=== PATIENT | female | born 1935 | race Caucasian/White ===

== ENCOUNTER 2020-09-10 15:45 | Inpatient (IN) | payer MEDICARE, SELFPAY ==
[2020-09-10 15:30] VITALS: BP 132/76; PULSE 68; RESP 18; TEMP 36.4; O2SAT 99
[2020-09-10 15:35] VITALS: O2SAT 97
--- NOTE | 2020-09-10 15:36 | CON.PCM_ITS ---
Problem List (1) Coronary artery disease Status: Chronic Qualifiers: Coronary Disease-Associated Artery/Lesion type: [place] artery [place] vs. transplanted heart: [place] heart Associated angina: without angina Qualified Code(s): I25.10 - Atherosclerotic heart disease of [place] coronary artery without angina pectoris (2) Morbid obesity due to excess calories Status: Chronic (3) Renal insufficiency Status: Chronic (4) COVID-19 Status: Acute (5) Systolic CHF, acute on chronic Status: Chronic (6) Acute respiratory failure with hypoxia Status: Acute Reason for Consult Date of Consultation: 09/10/20 Reason for Consultation: COVID-19 History of Present Illness: The patient is an 85 year old F, with past medical history listed below, who presented to [facility] as a transfer from [place] secondary to COVID-19 infection. Patient reportedly had complained of a 2-day history of cough, generalized weakness, myalgias, nausea and poor appetite that progressed. Patient reportedly had guests in their home that had tested positive for COVID- 19. On presentation patient reportedly was hypertensive at 193/92 and tachypneic at 30 breaths/min. Patient reportedly had a normal oxygen saturation at that time. Creatinine was noted to be 1.19 with a glucose of 147. Troponin was slightly elevated. Patient was found to be positive for COVID-19 and chest x-ray reportedly shows a left lower lobe pneumonia. Patient was admitted to the floor on broad-spectrum antibiotics, but overnight patient developed desaturation, respiratory rate into the 40s and hypoxia into the 70s. Patient was given IV Lasix and placed on BiPAP therapy. There was some concern patient would require Remdesivir, so the patient was reportedly transferred to [facility] for evaluation. Outside records were reviewed. There was approximately 75 pages. Pertinent information includes a white blood cell count of 8.7 with hemoglobin of 13.7. Liver function was unremarkable. Lactate was 1.8. ABG showed a metabolic acidosis with respiratory compensation and an increased AA gradient. Chest x-ray reportedly shows a left lower lobe infiltrate. Patient had a elevated BNP greater than 8000. On arrival to the intensive care unit, patient was noted to be afebrile and hemodynamically stable on 4 L nasal cannula oxygen. Patient reports that she feels significantly improved compared to previous. Patient denies any history of respiratory complaints. Patient has never been told she has asthma or COPD. Patient denies any smoking history. Patient does have an extensive cardiovascular history with a history of CAD status post CABG, stents and reported CHF. Patient also has a history of stroke, but denies any baseline deficits. Patient is a relatively poor historian and is unable to provide any medication lists. Patient does report she takes herbals, but is unaware of her exact regimen. Patient is a poor historian, but otherwise review of systems negative from a constitutional, HEENT, respiratory, cardiovascular, GI, genitourinary, musculoskeletal, skin, neurologic, psychiatric and hematologic system unless stated above. Past Medical History Past Medical History (Chronic Problems): Chronic Problems Coronary artery disease (Chronic) Morbid obesity due to excess calories (Chronic) Renal insufficiency (Chronic) Systolic CHF, acute on chronic (Chronic) Review of Systems Eyes: Reports: - - Wears glasses. No change in vision recently. HEENT: Reports: Hard of Hearing, - - Denies loss of taste or smell Unable to obtain accurate/complete ROS d/t: Poor historian. Objective: See HPI for outside review. No echocardiogram is available for review. - Physical Exam Vitals/I&O's: Vital Signs Pulse Ox 97 09/10/20 15:35 Oxygen Flow Rate (L/min) 2 Oxygen Delivery Method Nasal Cannula General: Alert, Oriented x3, Cooperative, - - Mild conversational dyspnea. Morbidly obese. HEENT: Atraumatic, PERRLA, EOMI, Normocephalic, - - Glasses in place. Oral: Moist Mucosa, No Gingival or Mucosal Lesions/ Ulcerations, - - Edentulous Neck: Supple, No JVD, No Nodes, Trachea Midline, - - Crowded posterior pharynx Lungs: No rhonchi, No wheeze, Diminished, Rales - Left base posteriorly, - - Symmetric expansion. Cardiovascular: Regular rate, Regular Rhythm, Normal S1, Normal S2, Murmur - Grade 2 out of 6 systolic ejection murmur at the right sternal border, No rub noted, No Gallop Abdomen: Bowel Sounds Present, Soft, Non Tender, Non-Distended, Obese Extremities: No clubbing, No cyanosis, Edema - Trace, Tenderness - Palpation over the tibia bilaterally Skin: No rashes, No breakdown Musculoskeletal: No Tenderness to Palpation of Joints or Extremities Lymphatic: No Cervical, Supraclavicular, or Inguinal Adenopathy Neurological: Cranial nerves II-XII grossly intact, Neuro grossly intact, Motor Exam 5/5 strength throughout Psych/Mental Status: Alert and oriented to time, place, person, mood and affect Assessment/Plan RECOMMENDATIONS: 1. Decadron, Remdesivir, convalescent serum per infectious disease 2. Okay to continue with nasal cannula during the day, BiPAP with sleep 3. Obtain echocardiogram and chest x-ray, consider BNP 4. Consider initiation of anticoagulation 5. Consider obtaining CRP, pro calcitonin 6. DNR Comfort Care arrest without intubation IMPRESSIONS: 1. Acute hypoxic respiratory failure secondary to CHF and COVID-19 Unclear etiology of acute worsening. Patient did have significant hypertension on presentation with an elevated BNP suggestive of hypertensive emergency. Patient also has tested positive for COVID-19. Patient is to be seen by infectious disease. We will continue to monitor respiratory status. Patient appears to be tolerating nasal cannula at this time. However, with body habitus and comorbid conditions, high clinical suspicion that BiPAP will be required overnight. Recommend obtaining echocardiogram for quantification clarification of cardiac function. Could consider a repeat BNP as patient reportedly has received diuretic therapy. Likely not necessary to obtain a CT of the chest, but chest x-ray may help quantify amount of irritation. If patient has pleural effusions, thoracentesis could be a consideration if oxygenation continues to worsen. 2. Acute on chronic reported systolic CHF/CAD status post CABG Baseline cardiac function is not known at this time. This does complicate respiratory status. Patient does not appear to have ST elevation on EKGs provided by outside institution. Telemetry looks like patient is in normal sinus rhythm. Recommend obtaining echocardiogram to quantify cardiac function. Patient may benefit from diuretic therapy. Okay to continue with baseline medications for now. 3. Morbid obesity/hypertension/hyperlipidemia/chronic kidney disease stage III Complicates care, management, recovery and prognosis. Likely okay to continue with baseline medications for now. We will have to watch liver function given antiretroviral. Inpatient E&M: 52525 Init Hosp L3
[2020-09-10 15:41] VITALS: PULSE 67; BMI 41.8; BMI 41.9
--- NOTE | 2020-09-10 15:51 | HP.PCM_ITS ---
Problem List (1) Coronary artery disease Status: Chronic Qualifiers: Coronary Disease-Associated Artery/Lesion type: [place] artery [place] vs. transplanted heart: [place] heart Associated angina: without angina Qualified Code(s): I25.10 - Atherosclerotic heart disease of [place] coronary artery without angina pectoris (2) Renal insufficiency Status: Chronic (3) COVID-19 Status: Acute (4) Systolic CHF, acute on chronic Status: Chronic (5) Acute respiratory failure with hypoxia Status: Acute History of Present Illness Date of Admission: 09/10/20 Chief Complaint: Weakness, cough. The patient is a 85 year old F with past medical history as mentioned above was directly admitted from outside facility for COVID-19 pneumonia. Reportedly, patient has been complaining of generalized weakness and fatigue over the last 3 to 4 days which is started after she had guests who were tested positive for COVID-19. She described her symptoms as being very weak, tired, associated with nausea and poor appetite and in the last couple of days, she has been having increasing shortness of breath with dry cough. She denied fever or chills. She has a history of CAD status post CABG and stents and this has been stable on medical treatment. She history of chronic congestive heart failure probably systolic and not sure if she has been on diuretics or not. She history of stroke in the past without significant residual deficit. At the other facility, patient was hypertensive and was hypoxic, was started on BiPAP. Her routine blood work was remarkable for BUN of 25 and creatinine 4.51, no leukocytosis. Lactic acid was normal. LFT was unremarkable. ABG revealed pH of 7.34, PCO2 of 25 and PO2 of 62. Her EKG revealed sinus tachycardia and PVCs, no acute clinical changes. Troponin was borderline elevated at 0.048 and 0.651. Her BNP was high elevated 8756. Chest x-ray revealed left lower lobe infiltrate and bilateral pulmonary vascular congestion. COVID-19 PCR came back positive. At this time after admission to the Covid floor, patient is afebrile, not tachycardic, blood pressure stable, pulse ox is maintained on 2 L of oxygen. She was given IV Lasix and broad-spectrum antibiotic at the other facility. She is being admitted for COVID-19 pneumonia and acute on chronic systolic CHF complicated by acute hypoxic respiratory failure. 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 Denies: Chills, Fever Eyes: Denies: Blurred vision, Double vision, Drainage, Redness HEENT: Denies: Difficulty Hearing, Ear Pain, Eye Pain, Nasal Congestion, Sore Throat Cardiovascular: Denies: Chest Pain, Chest Pressure, Heaviness, Light Headedness, Palpitations, Paroxysmal Noc. Dyspnea, Syncope Respiratory: Reports: Cough, Shortness of Breath. Denies: Pleuritic Pain, Sputum production, Wheezing Gastrointestinal: Denies: Abdominal Pain, Constipation, Diarrhea, Nausea, Vomiting Genitourinary: Denies: Dysuria, Frequency, Hematuria Musculoskeletal: Denies: Arm Pain, Back Pain, Foot Pain Skin: Denies: Dryness, Rash Neurological: Denies: Balance problems, Double vision, Change in Speech, Slurred speech, Confusion, Focal weakness, Incoordination, Numbness Psychiatric: Denies: Anxiety, Depression Endocrine: Denies: Change in Body Habitus, Polydipsia, Polyuria VTE Information - Inpt Only VTE Present on Admission: No VTE Mechan Device Prophylaxis: SCD's VTE Pharm Prophylaxis ordered?: Yes Patient Problems: Active and Suspected Problems COVID-19 (Acute) Acute respiratory failure with hypoxia (Acute) - Physical Exam Vitals/I&O's: Vital Signs Pulse Ox 97 09/10/20 15:35 Oxygen Flow Rate (L/min) 2 Oxygen Delivery Method Nasal Cannula General: Alert, Oriented x3, Cooperative, - - Minimally short of breath. HEENT: Atraumatic, PERRLA, EOMI, Normocephalic Oral: Moist Mucosa, No Gingival or Mucosal Lesions/ Ulcerations Neck: Supple, No JVD, Negative Carotid Bruits, Trachea Midline, Thyroid Normal Size and Texture Lungs: No rhonchi, No wheeze, No rales, Diminished, Short of Breath, - - Decreased breath sounds bilateral, basilar faint crackles. Cardiovascular: Regular rate, Regular Rhythm, Normal S1, Normal S2, PMI Normal, Murmur Abdomen: Bowel Sounds Present, Soft, Non Tender, Non-Distended, No Hepato- splenomegaly, Obese Extremities: No clubbing, No cyanosis, Edema - Trace edema. Skin: No rashes, No breakdown Lymphatic: No Cervical, Supraclavicular, or Inguinal Adenopathy Neurological: Cranial nerves II-XII grossly intact, Motor Exam 5/5 strength throughout Psych/Mental Status: Normal Affect, Appropriate, Alert and oriented to time, place, person, mood and affect CBC: WBC 8.3, hemoglobin 12.9, platelet count 1 65,000. BMP: Glucose 161, sodium 133, potassium 3.9, carbon dioxide 21, BUN 25, creatinine 1.51. ABG: pH 7.43, PCO2 25, PO2 62. LFT was unremarkable. Lactic acid was 1.8. Troponin: 0.048, 0.651. BNP 8756. Chest x-ray: Left lower lobe 58, bilateral pulmonary vascular congestion. EKG: Sinus tachycardia, PVCs, no acute sleep changes. Current Medications Sodium Chloride () 250 mls @ 15 mls/hr IV .[id number] PRN PRN Reason: Saline Flush Sodium Chloride () 250 mls @ 15 mls/hr IV .[id number] PRN PRN Reason: Additional IVPB Infusion Sodium Chloride (0.9% Saline Lock 10 Ml Syringe) 10 - 40 ml IV UD PRN PRN Reason: SALINE FLUSH Assessment/Plan All Active Problems COVID-19 (Acute) Acute respiratory failure with hypoxia (Acute) This is an 85 years old female patient directly admitted from outside facility for COVID-19 pneumonia, acute on chronic systolic CHF and acute hypoxic respiratory failure. #1 acute COVID-19 pneumonia: Chest x-ray from the outside facility reviewed. Initially, patient was on BiPAP but currently, she is on oxygen by nasal cannula at 2 L. Routine blood work reviewed as above. EKG revealed sinus tachycardia and PVCs, no acute changes. Plan: Admit to [facility] COVID-19 floor, COVID-19 isolation precautions, albuterol inhaler as needed, start IV Decadron, check CPK, D-dimer, fibrinogen, LDH, pro time with INR, infectious disease consult, start therapeutic Lovenox twice daily, pulmonology consult, repeat CBC and BMP tomorrow morning, PT OT evaluation and treatment when appropriate. #2 acute on chronic CHF probably systolic: This is based on symptoms, chest x- ray findings and very highly elevated BNP. Patient does have a history of CAD status post CABG. Plan: IV Lasix, fluid restriction, 2D echocardiogram, serial cardiac enzymes, repeat BMP tomorrow morning. #3 acute hypoxic respiratory failure: Secondary to #1 and 2, patient never been oxygen at home. Plan to treat underlying COVID-19 and acute CHF as above. #4 abnormal cardiac enzymes: EKG revealed no acute ischemic changes. Troponins are borderline elevated. Patient denied any chest pain. Plan: Cardiac monitoring, serial cardiac enzymes, 2D echocardiogram. #5 hyperglycemia: Without history of diabetes. Plan: Accu-Cheks, insulin sliding scale, check hemoglobin A1c. #6 renal sufficiency: Unknown if this is acute or chronic. Admission creatinine is 1.51, BUN is 25. Plan: Encourage oral intake, monitor kidney function. #7 CAD status post CABG and stents: Plan as above, resume home medications when home medications list updated. #8 history of stroke: Without residual deficit. Plan to continue home medications when home medication list updated. #9 CODE STATUS: DNR CCA, no intubation. #10 DVT prophylaxis: This note was generated with [employer] dictation software. It may contain incorrect words, spelling, and punctuation that were not noted in checking the note before signing. Inpatient E&M: 35608 Init Hosp L3
--- NOTE | 2020-09-10 15:51 | ECHOD_ITS ---
Reason For Study: CHF Procedure This was a 2D Doppler, Color Flow transthoracic echocardiogram. The study was technically difficult. Contrast injection was performed. Patient scanned sitting upright due to SOB. Exam performed portable in ICU/CCU. The exam was abbreviated due to the COVID 19 protocol. Left Ventricle Normal left ventricle. Concentric left ventricular hypertrophy. The estimated ejection fraction is 35 %. Moderate global left ventricular systolic dysfunction. Stage 2 diastolic dysfunction. apical, septal and postero-lateral hypokineis. Right Ventricle Normal right ventricle. Normal systolic function. Atria The left atrium is moderately enlarged. Normal right atrium. Mitral Valve Mild mitral annular calcification. Mild (1+) eccentric mitral valve insufficiency. Tricuspid Valve Normal pulmonary artery pressure. Mild tricuspid valve insufficiency. Aortic Valve Aortic sclerosis, no stenosis. There is no aortic stenosis. No aortic valve insufficiency. Pulmonic Valve No eccentric pulmonic valve insufficiency. Pericardium/Pleural No pericardial effusion. Medication Diluted definity 3ml given slow IV push to enhance endocardial definition. MMode/2D Measurements & Calculations LVIDd: 4.3 cm IVSd: 1.4 cm Ao root diam: 3.1 cm LVIDs: 3.5 cm LVPWd: 1.2 cm LA dimension: 3.9 cm FS: 18.7 % LAV(MOD-bp): 65.7 ml LA A4 area: 22.5 cm2 RA A4 area: 17.8 cm2 LAV(MOD-sp2): 62.3 ml LAV(MOD-sp4): 69.9 ml Time Measurements MV dec time: 0.24 sec Doppler Measurements & Calculations MV E max joseph: 94.4 cm/sec Lat Peak E' Joseph: 9.9 cm/sec Med Peak E' Joseph: 3.4 cm/sec MV A max joseph: 75.5 cm/sec E/E' lat: 9.5 E/E' med: 28.1 MV E/A: 1.3 MV V2 max: 125.1 cm/sec MV P1/2t max joseph: 125.3 cm/sec Ao V2 max: 167.4 cm/sec MV max P.3 mmHg MV P1/2t: 84.4 msec Ao max P.5 mmHg MV V2 mean: 60.7 cm/sec Ao V2 mean: 103.7 cm/sec MV mean P.8 mmHg MV dec slope: 434.7 cm/sec2 Ao mean P.1 mmHg MV V2 VTI: 38.6 cm MVA(P1/2t): 2.6 cm2 Ao V2 VTI: 26.4 cm LV V1 max: 151.3 cm/sec PA V2 max: 78.6 cm/sec TR max joseph: 258.2 cm/sec LV V1 max P.2 mmHg TR max P.7 mmHg LV V1 mean P.3 mmHg LV V1 mean: 94.4 cm/sec LV V1 VTI: 24.4 cm Interpretation Summary Normal left ventricle. Concentric left ventricular hypertrophy. The estimated ejection fraction is 35 %. Moderate global left ventricular systolic dysfunction. apical, septal and postero-lateral hypokineis The left atrium is moderately enlarged. Mild (1+) eccentric mitral valve insufficiency. Normal pulmonary artery pressure. Mild tricuspid valve insufficiency. Aortic sclerosis, no stenosis. Stage 2 diastolic dysfunction. Ordering Physician: Maximilian Nelson Referring Physician: Bryant Yan Performed By: Eleazar Valenzuela RCS
--- NOTE | 2020-09-10 16:20 | CON.PCM_ITS ---
Problem List (1) COVID-19 Status: Acute Reason for Consult: covid Consulted by: Dr. Nelson History of Present Illness: The patient is a 85 year old F with h/o CAD s/p CABG, CHF, stroke, presented as transfer today from [facility]. Developed dry cough, weakness, aches, fatigue, loss of appetite about 3 days ago. Had visitors over to play cards about a week ago who turned out to be covid (+). Rest of family at home so far is asymptomatic. At [place], given dexamethasone and iv lasix. [place] worsened with sats in the 70s, resp rate in the 40s. Made DNR-CCA, family requested transfer. Full ROS performed and neg except as noted above. Additional history obtained from family member. - Medical History Past Medical History (Chronic Problems): Chronic Problems Coronary artery disease (Chronic) Morbid obesity due to excess calories (Chronic) Renal insufficiency (Chronic) Systolic CHF, acute on chronic (Chronic) Surgical History: cabg rotator cuff repair hysterectomy - Social History SMOKING STATUS:: Never smoker Vital Signs Pulse Pulse Ox 67 97 09/10/20 15:41 09/10/20 15:35 Oxygen Flow Rate (L/min) 2 Oxygen Delivery Method Nasal Cannula - Other Studies Radiology: [] reviewed Other Studies: [] Route of nutrition/ use of supplements: [] Nutritional Intake: [] IV Site: [] Gandhi Catheter: [] - Physical Exam General: Alert, Cooperative, - - ill appearing HEENT: Atraumatic, PERRLA, EOMI Neck: Supple, No Nodes Lungs: Diminished Cardiovascular: Tachycardic Abdomen: Soft, Non Tender, Non-Distended Extremities: No edema Skin: No rashes IV Site: Peripheral, without redness Musculoskeletal: No Tenderness to Palpation of Joints or Extremities Neurological: Cranial nerves II-XII grossly intact - Assessment/Plan Antibiotics: [] Assessment/Plan: [] Active and Suspected Problems COVID-19 (Acute) Acute respiratory failure with hypoxia (Acute) Covid with acute resp failure with hypoxia and [place]ANK[place] - reviewed [place] records, cr went up from 1.19 to 1.5 with iv lasix. Cont dex. Checking labs here. Rev iewed EUA and risks/benefits of remdesivir and convalescent plasma with patient and her daughter Dalia. They agree to starting treatment with both. GFR is borderline, will monitor. Will follow, thank you, lakisha primary team The following information was communicated to the patient or caregiver: Remdesivir is not an FDA approved drug. The FDA has authorized the emergency use of Remdesivir. The patient had the option to refuse or accept treatment with Remdesivir. The patient was informed that the number of people treated with Remdesivir is small at this time. The potential benefits and potential risks of Remdesivir are not fully known. Potential benefits of Remdesivir include a shorter time to recovery of COVID-19 infection. Potential risks or side effects of Remdesivir include sweating, shivering, nausea and vomiting or low blood pressure related to a reaction to the medication infusion and increases in liver enzymes. No drugs are approved by the FDA to treat COVID-19 at this time. The patient (or appointed telephone service representative) stated understanding of information communicated and wished to proceed with Remdesivir treatment.
[2020-09-10 18:10] LABS: Anion Gap 7 (5-15); BUN 35 mg/dL (7-18); BUN/Creat Ratio 18.9 RATIO (10-20); CPK Total, Creatine Kinase 157 U/L (26-192); Chloride 101 mmol/L (98-107); Creatinine, Serum 1.85 mg/dL (0.55-1.02); EST Glomerular Filtration Rate 28 mL/min (>60); Est Glom Filt Rate - Afr Amer 33 mL/min (>60); Estimated Creatinine Clearance 17.58 ml/min; Glucose 233 mg/dL (74-106); LDH 269 U/L (84-246); Potassium 3.9 mmol/L (3.5-5.1); Sodium Level 134 mmol/L (136-145)
[2020-09-10 18:11] LABS: Hemoglobin A1c 6.5 % (3.8-5.6)
[2020-09-10] MEDS: CLARIFY ORDER NOTE (18:14)
[2020-09-10 18:40] LABS: Fibrinogen 459 mg/dl (203-444); International Normalized Ratio 1.1; Prothrombin Time (Protime)PT. 13.6 SECONDS (11.7-14.9)
[2020-09-10 18:42] LABS: D-Dimer Quantitative (DVT/PE) 4.62 FEU/ug/m (0.27-0.49)
[2020-09-10] MEDS: Insulin Lispro 100 UNIT/ML INSULN.PEN SC ×2 (19:05→22:31)
[2020-09-10] MEDS: 0.9% Saline Lock 10 ML Syringe IV ×2 (19:05→20:34)
[2020-09-10] MEDS: Enoxaparin 100 MG/ML Syringe SC (19:07)
[2020-09-10 19:18] VITALS: PULSE 67
[2020-09-10 19:20] LABS: Bedside Glucose 226 mg/dL (70-110)
[2020-09-10 20:00] VITALS: BP 141/80; PULSE 70; RESP 25; TEMP 36.6; O2SAT 97
[2020-09-10] MEDS: SACUBITRIL/VALSARTAN 24/26 MG TABLET 1 EACH PO (20:34)
[2020-09-10] MEDS: Furosemide 40 MG/4 ML Vial IV (20:34)
[2020-09-10 22:43] LABS: Bedside Glucose 190 mg/dL (70-110)
[2020-09-10 23:48] VITALS: PULSE 73
[2020-09-11] VITALS (15 sets, daily range): BP systolic 132–157; BP diastolic 65–89; PULSE 75–96; RESP 12–35; TEMP 37.1–37.6; O2SAT 93–99
[2020-09-11 04:09] LABS: Basophil# 0.01 X10^3/uL; Basophil% 0.1 % (0-1); Hematocrit 41.2 % (37-47); Hemoglobin 13.5 g/dL (12.0-15.0); Lymphocyte % 8.1 % (19-41); Mean Corp Hgb Conc 32.8 g/dL (32-36); Mean Corpuscular Hgb 31.1 pg (27.0-32.0); Mean Corpuscular Volume 94.9 fL (81-99); Mean Platelet Vol. 11.9 fl (6.2-12.0); Monocyte# 0.55 X10^3/uL; Monocyte% 3.7 % (0-10); NRBC Flagged by Analyzer 0 % (0-5); Neutrophil # 13.02 X10^3/uL (2.7-7.7); Neutrophil % 87.6 % (47-70); Platelet Count 190 K/mm3 (150-450); RBC Distribution Width CV 14.4 % (11.6-14.6); RBC Distribution Width SD 50.4 fl (35.1-43.9); Red Blood Count 4.34 M/mm3 (4.2-5.4); White Blood Count 14.9 K/mm3 (4.4-11.0)
[2020-09-11 04:24] LABS: ALB/GLOB Ratio 0.6 RATIO (0.9-2.4); AST(SGOT) 37 U/L (15-37); Alanine Aminotransfer ALT/SGPT 30 U/L (13-56); Albumin, Serum 2.9 g/dL (3.2-5.0); Alkaline Phosphatase 63 U/L (45-117); Anion Gap 9 (5-15); BUN 39 mg/dL (7-18); BUN/Creat Ratio 25.2 RATIO (10-20); Calcium,Total 8.5 mg/dL (8.5-10.1); Chloride 100 mmol/L (98-107); Creatinine, Serum 1.55 mg/dL (0.55-1.02); EST Glomerular Filtration Rate 34 mL/min (>60); Est Glom Filt Rate - Afr Amer 41 mL/min (>60); Estimated Creatinine Clearance 20.99 ml/min; Globulin 4.5 g/dL (2.2-4.2); Glucose 158 mg/dL (74-106); Potassium 3.7 mmol/L (3.5-5.1); Protein, Total 7.4 g/dL (6.4-8.2); Sodium Level 134 mmol/L (136-145)
[2020-09-11] MEDS: Furosemide 40 MG/4 ML Vial IV ×2 (05:35→17:22)
[2020-09-11] MEDS: Enoxaparin 100 MG/ML Syringe SC ×2 (05:35→17:22)
--- NOTE | 2020-09-11 05:55 | EKG12_ITS ---
Test Reason : ARRHYTHMIA Blood Pressure : / mmHG Vent. Rate : 099 BPM Atrial Rate : 357 BPM P-R Int : 000 ms QRS Dur : 106 ms QT Int : 344 ms P-R-T Axes : 000 -28 132 degrees QTc Int : 441 ms Atrial fibrillation with premature ventricular or aberrantly conducted complexes ST & T wave abnormality, consider lateral ischemia or digitalis effect Abnormal ECG When compared with ECG of 11-SEP-2020 02:29, MANUAL COMPARISON REQUIRED, DATA IS UNCONFIRMED Confirmed by MELODIE JENKINS, ARLET ([id number]), deputy editor in chief RENE SO ([id number]) on 09/23/2020 9:44:57 A M Referred By: PAOLA Confirmed By:EULOGIO SEWELL MD
[2020-09-11 07:15] LABS: Magnesium 2.1 mg/dL (1.6-2.6); Phosphorus 2.5 mg/dL (2.5-4.9)
--- NOTE | 2020-09-11 07:36 | PN_ITS ---
Subjective: Patient did well overnight. Patient reports subjective improvement in overall condition. We have received convalescent serum, but this has not been administered at this time. Patient did have some hypertension and tachycardia overnight. Patient has remained in sinus rhythm, but some frequent PVCs have been noted. Echocardiogram has not been completed at this time. Patient continues to report a wet intermittently productive cough General: Alert, Oriented x3, Cooperative, No apparent distress, Well developed, Well nourished, - - Morbidly obese. HEENT: Atraumatic, PERRLA, EOMI, Normocephalic, - - No scleral icterus or injection noted Oral: Moist Mucosa, No Gingival or Mucosal Lesions/ Ulcerations Neck: Supple, No Nodes, Trachea Midline, JVD, Right Lungs: No rhonchi, No wheeze, Diminished, Rales - Right base, - - Symmetric expansion Cardiovascular: Normal S1, Normal S2, No murmurs, No rub noted, No Gallop, Tachycardic, - - Sinus tachycardia noted on telemetry Abdomen: Bowel Sounds Present, Soft, Non Tender, Non-Distended, Obese Extremities: No clubbing, No cyanosis, Edema Skin: - - No change compared to previous Musculoskeletal: No Tenderness to Palpation of Joints or Extremities Lymphatic: No Cervical, Supraclavicular, or Inguinal Adenopathy Neurological: Cranial nerves II-XII grossly intact, Neuro grossly intact, Motor Exam 5/5 strength throughout Psych/Mental Status: Alert and oriented to time, place, person, mood and affect Vital Signs Temp Pulse Resp BP Pulse Ox 37.6 C H 109 H 29 H 151/83 H 97 09/11/20 03:27 09/11/20 05:20 09/11/20 05:20 09/11/20 03:27 09/11/20 07:17 Oxygen Flow Rate (L/min) 2 Oxygen Delivery Method Nasal Cannula Weight: 106.1 kg Body Mass Index (BMI) 41.8 Intake and Output for Last 24 Hours 09/09/20 09/10/20 09/11/20 23:59 23:59 23:59 Intake Total 500 / 500 150 / 150 Output Total 400 / 400 450 / 450 Balance 100 / 100 -300 / -300 Labs (Last 48 Hours) 09/10/20 09/10/20 09/10/20 17:30 17:30 17:30 WBC Corrected WBC RBC Hgb Hct MCV MCH MCHC RDW Std Deviation RDW Coeff of Raul Plt Count MPV Immature Gran % (Auto) Neut % (Auto) Lymph % (Auto) Weld % (Auto) Eos % (Auto) Baso % (Auto) Absolute Neuts (auto) Absolute Lymphs (auto) Total Counted Neutrophils % (Manual) Band Neutrophils % Lymphocytes % (Manual) Monocytes % (Manual) Eosinophils % (Manual) Basophils % (Manual) Metamyelocytes % Myelocytes % Promyelocytes % Blast Cells % Plasma Cell % (Manual) Other Cells % Nucleated RBC % Nucleated RBCs/100 WBC Differential Comment Diff Path Review Hypersegmented Neuts Atypical Lymphocytes Reactive Lymphocytes Smudge Cells Toxic Granulation Toxic Vacuolation Dohle Bodies John Rods Platelet Estimate Plt Morphology Comment RBC Morphology Polychromasia Hypochromasia Poikilocytosis Basophilic Stippling Anisocytosis Microcytosis Macrocytosis Spherocytes Sickle Cells Target Cells Tear Drop Cells Ovalocytes Stomatocytes Phillips-Rancho Alegre Bodies [place] Cells Bite Cells Crenated Cell Acanthocytes (Spur) Rouleaux Schistocytes PT 13.6 INR 1.1 Fibrinogen 459 H D-Dimer Quant (PE/DVT) 4.62 H* Sodium 134 L Potassium 3.9 Chloride 101 Carbon Dioxide 26.0 Anion Gap 7 BUN 35 H Creatinine 1.85 H Estim Creat Clear Calc 17.58 Est GFR (MDRD) Af Amer 33 L Est GFR (MDRD) Non-Af 28 L BUN/Creatinine Ratio 18.9 Glucose 233 H Hemoglobin A1c 6.5 H Calcium 9.0 Phosphorus Magnesium Total Bilirubin AST ALT Alkaline Phosphatase Lactate Dehydrogenase 269 H Total Creatine Kinase 157 Troponin I 0.328 H Total Protein Albumin Globulin Albumin/Globulin Ratio POC Glucose Blood Type 09/10/20 09/10/20 09/10/20 17:30 19:03 19:45 WBC Corrected WBC RBC Hgb Hct MCV MCH MCHC RDW Std Deviation RDW Coeff of Raul Plt Count MPV Immature Gran % (Auto) Neut % (Auto) Lymph % (Auto) Weld % (Auto) Eos % (Auto) Baso % (Auto) Absolute Neuts (auto) Absolute Lymphs (auto) Total Counted Neutrophils % (Manual) Band Neutrophils % Lymphocytes % (Manual) Monocytes % (Manual) Eosinophils % (Manual) Basophils % (Manual) Metamyelocytes % Myelocytes % Promyelocytes % Blast Cells % Plasma Cell % (Manual) Other Cells % Nucleated RBC % Nucleated RBCs/100 WBC Differential Comment Diff Path Review Hypersegmented Neuts Atypical Lymphocytes Reactive Lymphocytes Smudge Cells Toxic Granulation Toxic Vacuolation Dohle Bodies John Rods Platelet Estimate Plt Morphology Comment RBC Morphology Polychromasia Hypochromasia Poikilocytosis Basophilic Stippling Anisocytosis Microcytosis Macrocytosis Spherocytes Sickle Cells Target Cells Tear Drop Cells Ovalocytes Stomatocytes Phillips-Rancho [place]legre Bodies [place] Cells Bite Cells Crenated Cell Acanthocytes (Spur) Rouleaux Schistocytes PT INR Fibrinogen D-Dimer Quant (PE/DVT) Sodium Potassium Chloride Carbon Dioxide Anion Gap BUN Creatinine Estim Creat Clear Calc Est GFR (MDRD) Af Amer Est GFR (MDRD) Non-Af BUN/Creatinine Ratio Glucose Hemoglobin A1c Calcium Phosphorus Magnesium Total Bilirubin AST ALT Alkaline Phosphatase Lactate Dehydrogenase Total Creatine Kinase Troponin I 0.259 H Total Protein Albumin Globulin Albumin/Globulin Ratio POC Glucose 226 H Blood Type O POSITIVE 09/10/20 09/10/20 09/11/20 22:31 22:50 03:40 WBC Cancelled Corrected WBC Cancelled RBC Cancelled Hgb Cancelled Hct Cancelled MCV Cancelled MCH Cancelled MCHC Cancelled RDW Std Deviation Cancelled RDW Coeff of Raul Cancelled Plt Count Cancelled MPV Cancelled Immature Gran % (Auto) Cancelled Neut % (Auto) Cancelled Lymph % (Auto) Cancelled Weld % (Auto) Cancelled Eos % (Auto) Cancelled Baso % (Auto) Cancelled Absolute Neuts (auto) Cancelled Absolute Lymphs (auto) Cancelled Total Counted Cancelled Neutrophils % (Manual) Cancelled Band Neutrophils % Cancelled Lymphocytes % (Manual) Cancelled Monocytes % (Manual) Cancelled Eosinophils % (Manual) Cancelled Basophils % (Manual) Cancelled Metamyelocytes % Cancelled Myelocytes % Cancelled Promyelocytes % Cancelled Blast Cells % Cancelled Plasma Cell % (Manual) Cancelled Other Cells % Cancelled Nucleated RBC % Cancelled Nucleated RBCs/100 WBC Cancelled Differential Comment Cancelled Diff Path Review Cancelled Hypersegmented Neuts Cancelled Atypical Lymphocytes Cancelled Reactive Lymphocytes Cancelled Smudge Cells Cancelled Toxic Granulation Cancelled Toxic Vacuolation Cancelled Dohle Bodies Cancelled John Rods Cancelled Platelet Estimate Cancelled Plt Morphology Comment Cancelled RBC Morphology Cancelled Polychromasia Cancelled Hypochromasia Cancelled Poikilocytosis Cancelled Basophilic Stippling Cancelled Anisocytosis Cancelled Microcytosis Cancelled Macrocytosis Cancelled Spherocytes Cancelled Sickle Cells Cancelled Target Cells Cancelled Tear Drop Cells Cancelled Ovalocytes Cancelled Stomatocytes Cancelled Phillips-Rancho [place]re Bodies Cancelled [place] Cells Cancelled Bite Cells Cancelled Crenated Cell Cancelled Acanthocytes (Spur) Cancelled Rouleaux Cancelled Schistocytes Cancelled PT INR Fibrinogen D-Dimer Quant (PE/DVT) Sodium Potassium Chloride Carbon Dioxide Anion Gap BUN Creatinine Estim Creat Clear Calc Est GFR (MDRD) Af Amer Est GFR (MDRD) Non-Af BUN/Creatinine Ratio Glucose Hemoglobin A1c Calcium Phosphorus Magnesium Total Bilirubin AST ALT Alkaline Phosphatase Lactate Dehydrogenase Total Creatine Kinase Troponin I 0.237 H Total Protein Albumin Globulin Albumin/Globulin Ratio POC Glucose 190 H Blood Type 09/11/20 09/11/20 09/11/20 03:40 03:40 Unknown WBC 14.9 H Corrected WBC RBC 4.34 Hgb 13.5 Hct 41.2 MCV 94.9 MCH 31.1 MCHC 32.8 RDW Std Deviation 50.4 H RDW Coeff of Raul 14.4 Plt Count 190 MPV 11.9 Immature Gran % (Auto) 0.500 Neut % (Auto) 87.6 H Lymph % (Auto) 8.1 L Weld % (Auto) 3.7 Eos % (Auto) 0.0 Baso % (Auto) 0.1 Absolute Neuts (auto) 13.0 H Absolute Lymphs (auto) 1.20 Total Counted Neutrophils % (Manual) Band Neutrophils % Lymphocytes % (Manual) Monocytes % (Manual) Eosinophils % (Manual) Basophils % (Manual) Metamyelocytes % Myelocytes % Promyelocytes % Blast Cells % Plasma Cell % (Manual) Other Cells % Nucleated RBC % 0 Nucleated RBCs/100 WBC Differential Comment Diff Path Review Hypersegmented Neuts Atypical Lymphocytes Reactive Lymphocytes Smudge Cells Toxic Granulation Toxic Vacuolation Dohle Bodies John Rods Platelet Estimate Plt Morphology Comment RBC Morphology Polychromasia Hypochromasia Poikilocytosis Basophilic Stippling Anisocytosis Microcytosis Macrocytosis Spherocytes Sickle Cells Target Cells Tear Drop Cells Ovalocytes Stomatocytes Phillips-Rancho Alegre Bodies [place] Cells Bite Cells Crenated Cell Acanthocytes (Spur) Rouleaux Schistocytes PT INR Fibrinogen D-Dimer Quant (PE/DVT) Sodium 134 L Potassium 3.7 Chloride 100 Carbon Dioxide 25.0 Anion Gap 9 BUN 39 H Creatinine 1.55 H Estim Creat Clear Calc 20.99 Est GFR (MDRD) Af Amer 41 L Est GFR (MDRD) Non-Af 34 L BUN/Creatinine Ratio 25.2 H Glucose 158 H Hemoglobin A1c Calcium 8.5 Phosphorus 2.5 Magnesium 2.1 Total Bilirubin 0.20 AST 37 ALT 30 Alkaline Phosphatase 63 Lactate Dehydrogenase Total Creatine Kinase Troponin I Total Protein 7.4 Albumin 2.9 L Globulin 4.5 H Albumin/Globulin Ratio 0.6 L POC Glucose Blood Type Medical Necessity - Tobacco Use Smoking Status: Never smoker Assessment/Plan All Active Problems COVID-19 (Acute) Acute respiratory failure with hypoxia (Acute) RECOMMENDATIONS: 1. Decadron, Remdesivir, convalescent serum per infectious disease 2. Okay to continue with nasal cannula during the day, BiPAP with sleep 3. Await echocardiogram. Obtain chest x-ray if patient were to decompensate 4. Possibly transition to a 10 a inhibitor in the next 24 to 48 hours 5. Decrease Lasix therapy 6. DNR Comfort Care arrest without intubation IMPRESSIONS: 1. Acute hypoxic respiratory failure secondary to CHF and COVID-19 Unclear etiology of acute worsening. Patient did have significant hypertension on presentation with an elevated BNP suggestive of hypertensive emergency with CHF. Patient also has tested positive for COVID-19. Patient has been seen by infectious disease. We will continue to monitor respiratory status. Patient appears to be tolerating nasal cannula at this time. However, with body habitus and comorbid conditions, high clinical suspicion that BiPAP will be required overnight. Awaiting echocardiogram for quantification c larification of cardiac function. Will decrease diuretic therapy given increase in creatinine and low oxygen demands. Recommend obtain chest x-ray if patient decompensates 2. Acute on chronic reported systolic CHF/CAD status post CABG Baseline cardiac function is not known at this time. This does complicate respiratory status. Patient does not appear to have ST elevation on EKGs provided by outside institution. Telemetry looks like patient is in normal sinus rhythm. Await echocardiogram to quantify cardiac function. Patient may benefit from diuretic therapy, but given minimal oxygen requirements and elevated creatinine, will decrease dose. Okay to continue with baseline medications for now. 3. Morbid obesity/hypertension/hyperlipidemia/chronic kidney disease stage III Complicates care, management, recovery and prognosis. Likely okay to continue with baseline medications for now. We will have to watch liver function given antiretroviral. Inpatient E&M: 55175 Subs Hosp L3
[2020-09-11] MEDS: Insulin Lispro 100 UNIT/ML INSULN.PEN SC ×4 (08:44→20:40)
[2020-09-11] MEDS: SACUBITRIL/VALSARTAN 24/26 MG TABLET 1 EACH PO ×2 (08:44→20:36)
[2020-09-11] MEDS: dexAMETHasone 10 MG/ML Vial 6 MG IV (08:45)
[2020-09-11] MEDS: Spironolactone 25 MG Tablet 6.25 MG PO (08:45)
[2020-09-11] MEDS: Carvedilol 6.25 MG Tablet PO (08:45)
[2020-09-11] MEDS: Aspirin 81 MG TAB.CHEW PO (08:45)
[2020-09-11] MEDS: 0.9% Saline Lock 10 ML Syringe IV (08:46)
[2020-09-11 10:12] LABS: Bedside Glucose 162 mg/dL (70-110)
[2020-09-11 11:45] LABS: Bedside Glucose 191 mg/dL (70-110)
--- NOTE | 2020-09-11 14:58 | PCM.PROGNOTE ---
Patient Problems: Active and Suspected Problems COVID-19 (Acute) Acute respiratory failure with hypoxia (Acute) Subjective: Patient was seen and examined today, she is febrile today - high temp is 100.2. Patient is currently on 2 L of oxygen via nasal cannula, echocardiogram was completed today which showed a reduced ejection fraction of 35% and no significant valvular heart disease. His white blood cell count was 14.9 today, creatinine was 1.55, and sodium was 134. Patient has no complaints to this examiner except for generalized weakness. - Physical Exam Vitals/I&O's: Vital Signs Temp Pulse Resp BP Pulse Ox 100.2 F H 96 43 H 144/79 H 96 09/11/20 11:00 09/11/20 11:10 09/11/20 11:00 09/11/20 11:00 09/11/20 11:00 Oxygen Flow Rate (L/min) 2 Oxygen Delivery Method Nasal Cannula Weight: 106.1 kg Body Mass Index (BMI) 41.8 Intake and Output for Last 24 Hours 09/09/20 09/10/20 09/11/20 23:59 23:59 23:59 Intake Total 500 / 500 750 / 750 Output Total 400 / 400 1150 / 1150 Balance 100 / 100 -400 / -400 General: Alert, Oriented x3, Cooperative, Well developed HEENT: Atraumatic, PERRLA, EOMI, Normocephalic Oral: Moist Mucosa Neck: Supple, No JVD, No Nuchal Rigidity, Trachea Midline, Thyroid Normal Size and Texture Lungs: Clear to auscultation, No rhonchi, No wheeze, No rales, Diminished Cardiovascular: Regular rate, Regular Rhythm, Normal S1, Normal S2, No murmurs, PMI Normal, No rub noted Abdomen: Bowel Sounds Present, Soft, Non Tender, Non-Distended, Obese Extremities: No clubbing, No cyanosis, Capillary Refill Less than 3 Seconds Skin: No rashes, No breakdown Musculoskeletal: No Tenderness to Palpation of Joints or Extremities, No Muscle Wasting Neurological: Cranial nerves II-XII grossly intact, Neuro grossly intact, Sensory exam intact to light touch and pain Psych/Mental Status: Normal Affect, Appropriate, Alert and oriented to time, place, person, mood and affect Laboratory Results 09/10/20 17:30: PT 13.6, INR 1.1, Fibrinogen 459 H, D-Dimer Quant (PE/DVT) 4.62 H* 09/10/20 17:30: Sodium 134 L, Potassium 3.9, Chloride 101, Carbon Dioxide 26.0, Anion Gap 7, BUN 35 H, Creatinine 1.85 H, Estim Creat Clear Calc 17.58, Est GFR (MDRD) Af Amer 33 L, Est GFR (MDRD) Non-Af 28 L, BUN/Creatinine Ratio 18.9, Glucose 233 H, Calcium 9.0, Lactate Dehydrogenase 269 H, Total Creatine Kinase 157, Troponin I 0.328 H 09/10/20 17:30: Hemoglobin A1c 6.5 H 09/10/20 17:30: Blood Type O POSITIVE 09/10/20 19:03: POC Glucose 226 H 09/10/20 19:45: Troponin I 0.259 H 09/10/20 22:31: POC Glucose 190 H 09/10/20 22:50: Troponin I 0.237 H 09/11/20 03:40: WBC Cancelled, Corrected WBC Cancelled, RBC Cancelled, Hgb Cancelled, Hct Cancelled, MCV Cancelled, MCH Cancelled, MCHC Cancelled, RDW Std Deviation Cancelled, RDW Coeff of Raul Cancelled, Plt Count Cancelled, MPV Cancelled, Immature Gran % (Auto) Cancelled, Neut % (Auto) Cancelled, Lymph % (Auto) Cancelled, Barren % (Auto) Cancelled, Eos % (Auto) Cancelled, Baso % (Auto) Cancelled, Absolute Neuts (auto) Cancelled, Absolute Lymphs (auto) Cancelled, Total Counted Cancelled, Neutrophils % (Manual) Cancelled, Band Neutrophils % Cancelled, Lymphocytes % (Manual) Cancelled, Monocytes % (Manual) Cancelled, Eosinophils % (Manual) Cancelled, Basophils % (Manual) Cancelled, Metamyelocytes % Cancelled, Myelocytes % Cancelled, Promyelocytes % Cancelled, Blast Cells % Cancelled, Plasma Cell % (Manual) Cancelled, Other Cells % Cancelled, Nucleated RBC % Cancelled, Nucleated RBCs/100 WBC Cancelled, Differential Comment Cancelled, Diff Path Review Cancelled, Hypersegmented Neuts Cancelled, Atypical Lymphocytes Cancelled, Reactive Lymphocytes Cancelled, Smudge Cells Cancelled, Toxic Granulation Cancelled, Toxic Vacuolation Cancelled, Dohle Bodies Cancelled, John Rods Cancelled, Platelet Estimate Cancelled, Plt Morphology Comment Cancelled, RBC Morphology Cancelled, Polychromasia Cancelled, Hypochromasia Cancelled, Poikilocytosis Cancelled, Basophilic Stippling Cancelled, Anisocytosis Cancelled, Microcytosis Cancelled, Macrocytosis Cancelled, Spherocytes Cancelled, Sickle Cells Cancelled, Target Cells Cancelled, Tear Drop Cells Cancelled, Ovalocytes Cancelled, Stomatocytes Cancelled, Phillips-[place] Bodies Cancelled, Bertha Cells Cancelled, Bite Cells Cancelled, Crenated Cell Cancelled, Acanthocytes (Spur) Cancelled, Rouleaux Cancelled, Schistocytes Cancelled 09/11/20 03:40: Sodium 134 L, Potassium 3.7, Chloride 100, Carbon Dioxide 25.0, Anion Gap 9, BUN 39 H, Creatinine 1.55 H, Estim Creat Clear Calc 20.99, Est GFR (MDRD) Af Amer 41 L, Est GFR (MDRD) Non-Af 34 L, BUN/Creatinine Ratio 25.2 H, Glucose 158 H, Calcium 8.5, Total Bilirubin 0.20, AST 37, ALT 30, Alkaline Phosphatase 63, Total Protein 7.4, Albumin 2.9 L, Globulin 4.5 H, Albumin/Globulin Ratio 0.6 L 09/11/20 03:40: WBC 14.9 H, RBC 4.34, Hgb 13.5, Hct 41.2, MCV 94.9, MCH 31.1, MCHC 32.8, RDW Std Deviation 50.4 H, RDW Coeff of Raul 14.4, Plt Count 190, MPV 11.9, Immature Gran % (Auto) 0.500, Neut % (Auto) 87.6 H, Lymph % (Auto) 8.1 L, [place] % (Auto) 3.7, Eos % (Auto) 0.0, Baso % (Auto) 0.1, Absolute Neuts (auto) 13.0 H, Absolute Lymphs (auto) 1.20, Nucleated RBC % 0 09/11/20 08:26: POC Glucose 162 H 09/11/20 11:21: POC Glucose 191 H 09/11/20 : Phosphorus 2.5, Magnesium 2.1 Current Medications Albuterol Sulfate (Albuterol Ih 8.5 Gm (Proair) Inhaler (200 Puffs)) 2 puff INHALATION Q4H PRN PRN PRN Reason: Shortness of breath, wheezing Aspirin (Aspirin 81 Mg Tab.Chew) 81 mg PO DAILY@1000 COUNTS INCLUDE 234 BEDS AT THE [facility] Last Admin: 09/11/20 08:45 Dose: 81 mg Documented by: Carvedilol (Carvedilol 6.25 Mg Tablet) 6.25 mg PO DAILY COUNTS INCLUDE 234 BEDS AT THE [facility] Last Admin: 09/11/20 08:45 Dose: 6.25 mg Documented by: Dexamethasone Sodium Phosphate (Dexamethasone 10 Mg/Ml Vial) 6 mg IV DAILY COUNTS INCLUDE 234 BEDS AT THE [facility] Last Admin: 09/11/20 08:45 Dose: 6 mg Documented by: Enoxaparin Sodium (Enoxaparin 100 Mg/Ml Syringe) 100 mg SC Q12@0600,1800 COUNTS INCLUDE 234 BEDS AT THE [facility] Last Admin: 09/11/20 05:35 Dose: 100 mg Documented by: Furosemide (Furosemide 40 Mg/4 Ml Vial) 40 mg IV BID@1000,1800 COUNTS INCLUDE 234 BEDS AT THE [facility] Sodium Chloride () 250 mls @ 15 mls/hr IV .[id number] PRN PRN Reason: Saline Flush Sodium Chloride () 250 mls @ 15 mls/hr IV .[id number] PRN PRN Reason: Additional IVPB Infusion Remdesivir (Investigational) (100 mg/ Sodium Chloride) 250 mls @ 125 mls/hr IV DAILY COUNTS INCLUDE 234 BEDS AT THE [facility]; Protocol Stop: 09/14/20 11:59 Last Infusion: 09/11/20 13:28 Dose: Infused Documented by: Insulin Human Lispro (Insulin Lispro 100 Unit/Ml Insuln.Pen) 0 unit SC ACHS COUNTS INCLUDE 234 BEDS AT THE [facility]; Protocol Last Admin: 09/11/20 11:29 Dose: 1 units Documented by: Sacubitril/Valsartan (Sacubitril/Valsartan 24/26 Mg Tablet) 1 each PO BID COUNTS INCLUDE 234 BEDS AT THE [facility] Last Admin: 09/11/20 08:44 Dose: 1 each Documented by: Sodium Chloride (0.9% Saline Lock 10 Ml Syringe) 10 - 40 ml IV UD PRN PRN Reason: SALINE FLUSH Last Admin: 09/11/20 08:46 Dose: 20 ml Documented by: Spironolactone (Spironolactone 25 Mg Tablet) 6.25 mg PO DAILY COUNTS INCLUDE 234 BEDS AT THE [facility] Last Admin: 09/11/20 08:45 Dose: 6.25 mg Documented by: Medical Necessity - Tobacco Use Smoking Status: Never smoker Assessment/Plan All Active Problems COVID-19 (Acute) Acute respiratory failure with hypoxia (Acute) #1 acute COVID-19 infection with bilateral pneumonia-continue present treatment per pulmonary medicine and infectious diseases, chest x-ray in a.m. ordered. #2 acute on chronic systolic CHF-continue present medications #3 acute hypoxic respiratory failure secondary to acute Covid infection with bilateral pneumonia #4 chronic kidney disease stage III #5 essential hypertension #6 hyperlipidemia #7 morbid obesity Inpatient E&M: 14388 Subs Hosp L2
--- NOTE | 2020-09-11 15:00 | NURSING ---
Spoke w/ pt's Cornel, update given and questions answered.
[2020-09-11 17:41] LABS: Bedside Glucose 192 mg/dL (70-110)
[2020-09-11 22:15] LABS: Bedside Glucose 242 mg/dL (70-110)
[2020-09-12] VITALS (34 sets, daily range): BP systolic 63–157; BP diastolic 47–105; PULSE 72–96; RESP 12–35; TEMP 35.9–37.1; O2SAT 90–95
[2020-09-12 04:15] LABS: Hematocrit 38.8 % (37-47); Mean Corp Hgb Conc 33.5 g/dL (32-36); Mean Corpuscular Hgb 30.9 pg (27.0-32.0); Mean Corpuscular Volume 92.2 fL (81-99); Mean Platelet Vol. 12.1 fl (6.2-12.0); Platelet Count 208 K/mm3 (150-450); RBC Distribution Width CV 14.6 % (11.6-14.6); RBC Distribution Width SD 49.2 fl (35.1-43.9); Red Blood Count 4.21 M/mm3 (4.2-5.4); White Blood Count 10.5 K/mm3 (4.4-11.0)
[2020-09-12] MEDS: Enoxaparin 100 MG/ML Syringe SC ×2 (04:28→17:00)
[2020-09-12 04:31] LABS: ALB/GLOB Ratio 0.7 RATIO (0.9-2.4); AST(SGOT) 35 U/L (15-37); Alanine Aminotransfer ALT/SGPT 32 U/L (13-56); Albumin, Serum 2.8 g/dL (3.2-5.0); Alkaline Phosphatase 58 U/L (45-117); Anion Gap 8 (5-15); BUN 50 mg/dL (7-18); BUN/Creat Ratio 32.5 RATIO (10-20); Calcium,Total 8.6 mg/dL (8.5-10.1); Chloride 101 mmol/L (98-107); Creatinine, Serum 1.54 mg/dL (0.55-1.02); EST Glomerular Filtration Rate 34 mL/min (>60); Est Glom Filt Rate - Afr Amer 41 mL/min (>60); Estimated Creatinine Clearance 21.12 ml/min; Globulin 4.2 g/dL (2.2-4.2); Glucose 196 mg/dL (74-106); Potassium 3.3 mmol/L (3.5-5.1); Sodium Level 134 mmol/L (136-145)
--- NOTE | 2020-09-12 05:25 | RAD_ITS ---
STUDY: X-RAY CHEST REASON FOR EXAM: Female, 85 years old. PNEUMONIA TECHNIQUE: AP COMPARISON: None. FINDINGS: EKG leads project over the chest. Sternal wires and mediastinal surgical clips compatible with prior CABG. There are patchy parenchymal opacities involving the right mid lung and bilateral lower lung zones. No cavitating process. No sizable effusion or pneumothorax. Normal size heart. Normal mediastinum and adelfo. Normal visualized pulmonary arteries. There is atherosclerotic calcification of the aortic arch with tortuosity. No acute bony process. There is no demonstrated abnormality of the visualized soft tissue structures of the upper abdomen. RAD/Chest 1 View (Portable) IMPRESSION: 1. Multilobar pulmonary infiltrates that could suggest pneumonia or pulmonary edema. Imaging follow-up recommended to ensure resolution. Electronically Signed: Jean-Pierre Young MD ([place]) at 9:04 EDT , Service support ,
--- NOTE | 2020-09-12 07:14 | PCM.PN.INT ---
Subjective: Patient did well overnight. No acute issues were reported. Patient has tolerated BiPAP with sleep and is on 2 L during the day. Patient denied any GI symptoms. Patient is complaining of a headache. Nursing reported patient has had some intermittent episodes of what appeared to be Mobitz type II, but this was not sustained. Objective: Chest x-ray shows bilateral infiltrates, right greater than left. Patient did have an echocardiogram yesterday showing an EF of 35% with stage II diastolic dysfunction. Valvular function was not really assessed secondary to COVID General: Alert, Oriented x3, Cooperative, No apparent distress, Well developed, Well nourished, - - Morbidly obese. HEENT: Atraumatic, PERRLA, EOMI, Normocephalic, - - No scleral icterus or injection noted. Oral: Moist Mucosa, No Gingival or Mucosal Lesions/ Ulcerations, - - Crowded posterior pharynx Neck: Supple, No JVD, No Nodes, Trachea Midline Lungs: No rhonchi, Diminished, Wheezes, - - Symmetric expansion. Cardiovascular: Regular rate, Regular Rhythm, Normal S1, Normal S2, No murmurs, No rub noted, No Gallop Abdomen: Bowel Sounds Present, Soft, Non Tender, Non-Distended, Obese Extremities: No clubbing, No cyanosis, Capillary Refill Less than 3 Seconds, Edema - Trace lower extremity Skin: - - No change compared to previous Musculoskeletal: No Tenderness to Palpation of Joints or Extremities Lymphatic: No Cervical, Supraclavicular, or Inguinal Adenopathy Neurological: Cranial nerves II-XII grossly intact, Neuro grossly intact, Motor Exam 5/5 strength throughout, - - Some hearing loss Psych/Mental Status: Normal Affect, Appropriate Vital Signs Temp Pulse Resp BP Pulse Ox 36.5 C L 79 22 H 116/68 94 09/12/20 05:00 09/12/20 06:00 09/12/20 06:00 09/12/20 06:00 09/12/20 06:00 Oxygen Flow Rate (L/min) 2 Oxygen Delivery Method Bi-pap Weight: 106.1 kg Body Mass Index (BMI) 41.8 Intake and Output for Last 24 Hours 09/10/20 09/11/20 09/12/20 23:59 23:59 23:59 Intake Total 500 / 500 1050 / 1100 250 / 250 Output Total 400 / 400 1475 / 1775 475 / 475 Balance 100 / 100 -425 / -675 -225 / -225 Labs (Last 48 Hours) 09/10/20 09/10/20 09/10/20 17:30 17:30 17:30 WBC Corrected WBC RBC Hgb Hct MCV MCH MCHC RDW Std Deviation RDW Coeff of Raul Plt Count MPV Immature Gran % (Auto) Neut % (Auto) Lymph % (Auto) [place] % (Auto) Eos % (Auto) Baso % (Auto) Absolute Neuts (auto) Absolute Lymphs (auto) Total Counted Neutrophils % (Manual) Band Neutrophils % Lymphocytes % (Manual) Monocytes % (Manual) Eosinophils % (Manual) Basophils % (Manual) Metamyelocytes % Myelocytes % Promyelocytes % Blast Cells % Plasma Cell % (Manual) Other Cells % Nucleated RBC % Nucleated RBCs/100 WBC Differential Comment Diff Path Review Hypersegmented Neuts Atypical Lymphocytes Reactive Lymphocytes Smudge Cells Toxic Granulation Toxic Vacuolation Dohle Bodies John Rods Platelet Estimate Plt Morphology Comment RBC Morphology Polychromasia Hypochromasia Poikilocytosis Basophilic Stippling Anisocytosis Microcytosis Macrocytosis Spherocytes Sickle Cells Target Cells Tear Drop Cells Ovalocytes Stomatocytes Phillips-Mcnary Bodies [place] Cells Bite Cells Crenated Cell Acanthocytes (Spur) Rouleaux Schistocytes PT 13.6 INR 1.1 Fibrinogen 459 H D-Dimer Quant (PE/DVT) 4.62 H* Sodium 134 L Potassium 3.9 Chloride 101 Carbon Dioxide 26.0 Anion Gap 7 BUN 35 H Creatinine 1.85 H Estim Creat Clear Calc 17.58 Est GFR (MDRD) Af Amer 33 L Est GFR (MDRD) Non-Af 28 L BUN/Creatinine Ratio 18.9 Glucose 233 H Hemoglobin A1c 6.5 H Calcium 9.0 Phosphorus Magnesium Total Bilirubin AST ALT Alkaline Phosphatase Lactate Dehydrogenase 269 H Total Creatine Kinase 157 Troponin I 0.328 H Total Protein Albumin Globulin Albumin/Globulin Ratio POC Glucose Blood Type 09/10/20 09/10/20 09/10/20 17:30 19:03 19:45 WBC Corrected WBC RBC Hgb Hct MCV MCH MCHC RDW Std Deviation RDW Coeff of Raul Plt Count MPV Immature Gran % (Auto) Neut % (Auto) Lymph % (Auto) [place] % (Auto) Eos % (Auto) Baso % (Auto) Absolute Neuts (auto) Absolute Lymphs (auto) Total Counted Neutrophils % (Manual) Band Neutrophils % Lymphocytes % (Manual) Monocytes % (Manual) Eosinophils % (Manual) Basophils % (Manual) Metamyelocytes % Myelocytes % Promyelocytes % Blast Cells % Plasma Cell % (Manual) Other Cells % Nucleated RBC % Nucleated RBCs/100 WBC Differential Comment Diff Path Review Hypersegmented Neuts Atypical Lymphocytes Reactive Lymphocytes Smudge Cells Toxic Granulation Toxic Vacuolation Dohle Bodies John Rods Platelet Estimate Plt Morphology Comment RBC Morphology Polychromasia Hypochromasia Poikilocytosis Basophilic Stippling Anisocytosis Microcytosis Macrocytosis Spherocytes Sickle Cells Target Cells Tear Drop Cells Ovalocytes Stomatocytes Phillips-Mcnary Bodies [place] Cells Bite Cells Crenated Cell Acanthocytes (Spur) Rouleaux Schistocytes PT INR Fibrinogen D-Dimer Quant (PE/DVT) Sodium Potassium Chloride Carbon Dioxide Anion Gap BUN Creatinine Estim Creat Clear Calc Est GFR (MDRD) Af Amer Est GFR (MDRD) Non-Af BUN/Creatinine Ratio Glucose Hemoglobin A1c Calcium Phosphorus Magnesium Total Bilirubin AST ALT Alkaline Phosphatase Lactate Dehydrogenase Total Creatine Kinase Troponin I 0.259 H Total Protein Albumin Globulin Albumin/Globulin Ratio POC Glucose 226 H Blood Type O POSITIVE 09/10/20 09/10/20 09/11/20 22:31 22:50 03:40 WBC Cancelled Corrected WBC Cancelled RBC Cancelled Hgb Cancelled Hct Cancelled MCV Cancelled MCH Cancelled MCHC Cancelled RDW Std Deviation Cancelled RDW Coeff of Raul Cancelled Plt Count Cancelled MPV Cancelled Immature Gran % (Auto) Cancelled Neut % (Auto) Cancelled Lymph % (Auto) Cancelled [place] % (Auto) Cancelled Eos % (Auto) Cancelled Baso % (Auto) Cancelled Absolute Neuts (auto) Cancelled Absolute Lymphs (auto) Cancelled Total Counted Cancelled Neutrophils % (Manual) Cancelled Band Neutrophils % Cancelled Lymphocytes % (Manual) Cancelled Monocytes % (Manual) Cancelled Eosinophils % (Manual) Cancelled Basophils % (Manual) Cancelled Metamyelocytes % Cancelled Myelocytes % Cancelled Promyelocytes % Cancelled Blast Cells % Cancelled Plasma Cell % (Manual) Cancelled Other Cells % Cancelled Nucleated RBC % Cancelled Nucleated RBCs/100 WBC Cancelled Differential Comment Cancelled Diff Path Review Cancelled Hypersegmented Neuts Cancelled Atypical Lymphocytes Cancelled Reactive Lymphocytes Cancelled Smudge Cells Cancelled Toxic Granulation Cancelled Toxic Vacuolation Cancelled Dohle Bodies Cancelled John Rods Cancelled Platelet Estimate Cancelled Plt Morphology Comment Cancelled RBC Morphology Cancelled Polychromasia Cancelled Hypochromasia Cancelled Poikilocytosis Cancelled Basophilic Stippling Cancelled Anisocytosis Cancelled Microcytosis Cancelled Macrocytosis Cancelled Spherocytes Cancelled Sickle Cells Cancelled Target Cells Cancelled Tear Drop Cells Cancelled Ovalocytes Cancelled Stomatocytes Cancelled Phillips-Mcnary Bodies Cancelled [place] Cells Cancelled Bite Cells Cancelled Crenated Cell Cancelled Acanthocytes (Spur) Cancelled Rouleaux Cancelled Schistocytes Cancelled PT INR Fibrinogen D-Dimer Quant (PE/DVT) Sodium Potassium Chloride Carbon Dioxide Anion Gap BUN Creatinine Estim Creat Clear Calc Est GFR (MDRD) Af Amer Est GFR (MDRD) Non-Af BUN/Creatinine Ratio Glucose Hemoglobin A1c Calcium Phosphorus Magnesium Total Bilirubin AST ALT Alkaline Phosphatase Lactate Dehydrogenase Total Creatine Kinase Troponin I 0.237 H Total Protein Albumin Globulin Albumin/Globulin Ratio POC Glucose 190 H Blood Type 09/11/20 09/11/20 09/11/20 03:40 03:40 08:26 WBC 14.9 H Corrected WBC RBC 4.34 Hgb 13.5 Hct 41.2 MCV 94.9 MCH 31.1 MCHC 32.8 RDW Std Deviation 50.4 H RDW Coeff of Raul 14.4 Plt Count 190 MPV 11.9 Immature Gran % (Auto) 0.500 Neut % (Auto) 87.6 H Lymph % (Auto) 8.1 L [place] % (Auto) 3.7 Eos % (Auto) 0.0 Baso % (Auto) 0.1 Absolute Neuts (auto) 13.0 H Absolute Lymphs (auto) 1.20 Total Counted Neutrophils % (Manual) Band Neutrophils % Lymphocytes % (Manual) Monocytes % (Manual) Eosinophils % (Manual) Basophils % (Manual) Metamyelocytes % Myelocytes % Promyelocytes % Blast Cells % Plasma Cell % (Manual) Other Cells % Nucleated RBC % 0 Nucleated RBCs/100 WBC Differential Comment Diff Path Review Hypersegmented Neuts Atypical Lymphocytes Reactive Lymphocytes Smudge Cells Toxic Granulation Toxic Vacuolation Dohle Bodies John Rods Platelet Estimate Plt Morphology Comment RBC Morphology Polychromasia Hypochromasia Poikilocytosis Basophilic Stippling Anisocytosis Microcytosis Macrocytosis Spherocytes Sickle Cells Target Cells Tear Drop Cells Ovalocytes Stomatocytes Phillips-Mcnary Bodies [place] Cells Bite Cells Crenated Cell Acanthocytes (Spur) Rouleaux Schistocytes PT INR Fibrinogen D-Dimer Quant (PE/DVT) Sodium 134 L Potassium 3.7 Chloride 100 Carbon Dioxide 25.0 Anion Gap 9 BUN 39 H Creatinine 1.55 H Estim Creat Clear Calc 20.99 Est GFR (MDRD) Af Amer 41 L Est GFR (MDRD) Non-Af 34 L BUN/Creatinine Ratio 25.2 H Glucose 158 H Hemoglobin A1c Calcium 8.5 Phosphorus Magnesium Total Bilirubin 0.20 AST 37 ALT 30 Alkaline Phosphatase 63 Lactate Dehydrogenase Total Creatine Kinase Troponin I Total Protein 7.4 Albumin 2.9 L Globulin 4.5 H Albumin/Globulin Ratio 0.6 L POC Glucose 162 H Blood Type 09/11/20 09/11/20 09/11/20 11:21 17:15 20:38 WBC Corrected WBC RBC Hgb Hct MCV MCH MCHC RDW Std Deviation RDW Coeff of Raul Plt Count MPV Immature Gran % (Auto) Neut % (Auto) Lymph % (Auto) [place] % (Auto) Eos % (Auto) Baso % (Auto) Absolute Neuts (auto) Absolute Lymphs (auto) Total Counted Neutrophils % (Manual) Band Neutrophils % Lymphocytes % (Manual) Monocytes % (Manual) Eosinophils % (Manual) Basophils % (Manual) Metamyelocytes % Myelocytes % Promyelocytes % Blast Cells % Plasma Cell % (Manual) Other Cells % Nucleated RBC % Nucleated RBCs/100 WBC Differential Comment Diff Path Review Hypersegmented Neuts Atypical Lymphocytes Reactive Lymphocytes Smudge Cells Toxic Granulation Toxic Vacuolation Dohle Bodies John Rods Platelet Estimate Plt Morphology Comment RBC Morphology Polychromasia Hypochromasia Poikilocytosis Basophilic Stippling Anisocytosis Microcytosis Macrocytosis Spherocytes Sickle Cells Target Cells Tear Drop Cells Ovalocytes Stomatocytes Phillips-Mcnary Bodies [place] Cells Bite Cells Crenated Cell Acanthocytes (Spur) Rouleaux Schistocytes PT INR Fibrinogen D-Dimer Quant (PE/DVT) Sodium Potassium Chloride Carbon Dioxide Anion Gap BUN Creatinine Estim Creat Clear Calc Est GFR (MDRD) Af Amer Est GFR (MDRD) Non-Af BUN/Creatinine Ratio Glucose Hemoglobin A1c Calcium Phosphorus Magnesium Total Bilirubin AST ALT Alkaline Phosphatase Lactate Dehydrogenase Total Creatine Kinase Troponin I Total Protein Albumin Globulin Albumin/Globulin Ratio POC Glucose 191 H 192 H 242 H Blood Type 09/11/20 09/12/20 09/12/20 Unknown 04:05 04:05 WBC 10.5 Corrected WBC RBC 4.21 Hgb 13.0 Hct 38.8 MCV 92.2 MCH 30.9 MCHC 33.5 RDW Std Deviation 49.2 H RDW Coeff of Raul 14.6 Plt Count 208 MPV 12.1 H Immature Gran % (Auto) Neut % (Auto) Lymph % (Auto) [place] % (Auto) Eos % (Auto) Baso % (Auto) Absolute Neuts (auto) Absolute Lymphs (auto) Total Counted Neutrophils % (Manual) Band Neutrophils % Lymphocytes % (Manual) Monocytes % (Manual) Eosinophils % (Manual) Basophils % (Manual) Metamyelocytes % Myelocytes % Promyelocytes % Blast Cells % Plasma Cell % (Manual) Other Cells % Nucleated RBC % Nucleated RBCs/100 WBC Differential Comment Diff Path Review Hypersegmented Neuts Atypical Lymphocytes Reactive Lymphocytes Smudge Cells Toxic Granulation Toxic Vacuolation Dohle Bodies John Rods Platelet Estimate Plt Morphology Comment RBC Morphology Polychromasia Hypochromasia Poikilocytosis Basophilic Stippling Anisocytosis Microcytosis Macrocytosis Spherocytes Sickle Cells Target Cells Tear Drop Cells Ovalocytes Stomatocytes Phillips-Mcnary Bodies [place] Cells Bite Cells Crenated Cell Acanthocytes (Spur) Rouleaux Schistocytes PT INR Fibrinogen D-Dimer Quant (PE/DVT) Sodium 134 L Potassium 3.3 L Chloride 101 Carbon Dioxide 25.0 Anion Gap 8 BUN 50 H Creatinine 1.54 H Estim Creat Clear Calc 21.12 Est GFR (MDRD) Af Amer 41 L Est GFR (MDRD) Non-Af 34 L BUN/Creatinine Ratio 32.5 H Glucose 196 H Hemoglobin A1c Calcium 8.6 Phosphorus 2.5 Magnesium 2.1 Total Bilirubin 0.30 AST 35 ALT 32 Alkaline Phosphatase 58 Lactate Dehydrogenase Total Creatine Kinase Troponin I Total Protein 7.0 Albumin 2.8 L Globulin 4.2 Albumin/Globulin Ratio 0.7 L POC Glucose Blood Type Medical Necessity - Tobacco Use Smoking Status: Never smoker Assessment/Plan All Active Problems COVID-19 (Acute) Acute respiratory failure with hypoxia (Acute) RECOMMENDATIONS: 1. Decadron, Remdesivir, convalescent serum per infectious disease 2. Okay to continue with nasal cannula during the day, BiPAP with sleep 3. Continue aggressive medical management of CHF 4. Possibly transition to a 10 a inhibitor in the next 24 hours 5. Increase activity as tolerated 6. DNR Comfort Care arrest without intubation IMPRESSIONS: 1. Acute hypoxic respiratory failure secondary to CHF and COVID-19 Unclear etiology of acute worsening. Patient did have significant hypertension on presentation with an elevated BNP suggestive of hypertensive emergency with CHF. Patient also has tested positive for COVID-19. Patient has been seen by infectious disease. We will continue to monitor respiratory status. Patient appears to be tolerating nasal cannula at this time. However, with body habitus and comorbid conditions, high clinical suspicion that BiPAP will be required overnight. Echocardiogram shows significant combined CHF. Will decrease diuretic therapy given increase in creatinine and low oxygen demands. X-ray does show bilateral infiltrates, clinical suspicion that this is COVID, not pulmonary edema. 2. 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 This does complicate respiratory status. Patient does not appear to have ST elevation on EKGs provided by outside institution. Telemetry looks like patient is in normal sinus rhythm. Hold on cardiology consult for now. Patient may benefit from diuretic therapy, but given minimal oxygen requirements and elevated creatinine, will decrease dose. Okay to continue with baseline medications for now. 3. Morbid obesity/hypertension/hyperlipidemia/chronic kidney disease stage III Complicates care, management, recovery and prognosis. Likely okay to continue with baseline medications for now. We will have to watch liver function given antiretroviral. Patient appears to be tolerating therapy well. Inpatient E&M: [id number] [facility] L3
--- NOTE | 2020-09-12 07:26 | EKG12_ITS ---
Test Reason : AM EKG Blood Pressure : / mmHG Vent. Rate : 093 BPM Atrial Rate : 093 BPM P-R Int : 184 ms QRS Dur : 094 ms QT Int : 504 ms P-R-T Axes : 096 -29 102 degrees QTc Int : 626 ms Normal sinus rhythm Nonspecific ST and T wave abnormality Prolonged QT Abnormal ECG No previous ECGs available Confirmed by MELODIE JENKINS, ARLET ([id number]), video editor RENE SO ([id number]) on 09/23/2020 9:45:26 A M Referred By: BHARAT Confirmed By:EULOGIO SEWELL MD
[2020-09-12] MEDS: Insulin Lispro 100 UNIT/ML INSULN.PEN SC ×4 (08:35→22:04)
[2020-09-12] MEDS: Furosemide 40 MG/4 ML Vial IV (08:36)
[2020-09-12] MEDS: SACUBITRIL/VALSARTAN 24/26 MG TABLET 1 EACH PO (08:36)
[2020-09-12] MEDS: Carvedilol 6.25 MG Tablet PO ×2 (08:36→15:04)
[2020-09-12] MEDS: Spironolactone 25 MG Tablet 6.25 MG PO (08:36)
[2020-09-12] MEDS: Aspirin 81 MG TAB.CHEW PO (08:36)
[2020-09-12] MEDS: dexAMETHasone 10 MG/ML Vial 6 MG IV (08:37)
[2020-09-12 09:16] LABS: Bedside Glucose 218 mg/dL (70-110)
--- NOTE | 2020-09-12 14:31 | NURSING ---
Spoke w/ pt's daughter, Dalia, to give update on pt's current condition. Explained to her that pt has developed atrial fibrillation over the course of the day and that her rate is controlled (around 100 BPM). Pt's daughter is concerned that her mother is over-drugged. Explained current tx regimen and that the only med changes at this time are related to the covid medications that have been ordered and given. This RN then assisted the pt to dial her daughter over her cell phone in order to talk to her herself.
[2020-09-12 14:36] LABS: Bedside Glucose 331 mg/dL (70-110)
--- NOTE | 2020-09-12 15:13 | PCM.PROGNOTE ---
Patient Problems: Active and Suspected Problems COVID-19 (Acute) Acute respiratory failure with hypoxia (Acute) Subjective: Patient was seen and examined today, she appears fatigued but appears in no distress. Patient does not complain of any fever or chills or chest pain. At the time of this dictation, patient is currently on room air. Patient's chest x-ray today showed multi lobar pulmonary infiltrates that could suggest pneumonia or pulmonary edema. Patient remains afebrile at this time Objective: General: She appears fatigued, she is oriented x3, Cooperative, Well developed HEENT: Atraumatic, PERRLA, EOMI, Normocephalic Oral: Moist Mucosa Neck: Supple, No JVD, No Nuchal Rigidity, Trachea Midline, Thyroid Normal Size and Texture Lungs: Decreased breath sounds bilaterally, No rhonchi, No wheeze, scattered expiratory rales are noted over the right anterior lung field Cardiovascular: Regular rate, Regular Rhythm, Normal S1, Normal S2, No murmurs, PMI Normal, No rub noted Abdomen: Bowel Sounds Present, Soft, Non Tender, Non-Distended, Obese Extremities: No clubbing, No cyanosis, Capillary Refill Less than 3 Seconds Skin: No rashes, No breakdown Musculoskeletal: No Tenderness to Palpation of Joints or Extremities, No Muscle Wasting Neurological: Cranial nerves II-XII grossly intact, Neuro grossly intact, Sensory exam intact to light touch and pain Psych/Mental Status: Flat affect, Appropriate, Alert and oriented to time, place, person, mood and affect - Physical Exam Vitals/I&O's: Vital Signs Temp Pulse Resp BP Pulse Ox 98.2 F 92 35 H 86/52 L 93 09/12/20 15:09 09/12/20 15:09 09/12/20 15:09 09/12/20 15:09 09/12/20 15:09 Oxygen Flow Rate (L/min) 2 Oxygen Delivery Method Room Air Weight: 106.1 kg Body Mass Index (BMI) 41.8 Intake and Output for Last 24 Hours 09/10/20 09/11/20 09/12/20 23:59 23:59 23:59 Intake Total 500 / 500 1050 / 1100 725 / 725 Output Total 400 / 400 1475 / 1775 875 / 875 Balance 100 / 100 -425 / -675 -150 / -150 Laboratory Results 09/11/20 17:15: POC Glucose 192 H 09/11/20 20:38: POC Glucose 242 H 09/12/20 04:05: WBC 10.5, RBC 4.21, Hgb 13.0, Hct 38.8, MCV 92.2, MCH 30.9, MCHC 33.5, RDW Std Deviation 49.2 H, RDW Coeff of Raul 14.6, Plt Count 208, MPV 12.1 H 09/12/20 04:05: Sodium 134 L, Potassium 3.3 L, Chloride 101, Carbon Dioxide 25.0, Anion Gap 8, BUN 50 H, Creatinine 1.54 H, Estim Creat Clear Calc 21.12, Est GFR (MDRD) Af Amer 41 L, Est GFR (MDRD) Non-Af 34 L, BUN/Creatinine Ratio 32.5 H, Glucose 196 H, Calcium 8.6, Total Bilirubin 0.30, AST 35, ALT 32, Alkaline Phosphatase 58, Total Protein 7.0, Albumin 2.8 L, Globulin 4.2, Albumin/Globulin Ratio 0.7 L 09/12/20 08:28: POC Glucose 218 H 09/12/20 12:41: POC Glucose 331 H Current Medications Albuterol Sulfate (Albuterol Ih 8.5 Gm (Proair) Inhaler (200 Puffs)) 2 puff INHALATION Q4H PRN PRN PRN Reason: Shortness of breath, wheezing Aspirin (Aspirin 81 Mg Tab.Chew) 81 mg PO DAILY@1000 [facility] Last Admin: 09/12/20 08:36 Dose: 81 mg Documented by: Carvedilol (Carvedilol 12.5 Mg Tablet) 12.5 mg PO DAILY [facility] Dexamethasone Sodium Phosphate (Dexamethasone 10 Mg/Ml Vial) 6 mg IV DAILY [facility] Last Admin: 09/12/20 08:37 Dose: 6 mg Documented by: Enoxaparin Sodium (Enoxaparin 100 Mg/Ml Syringe) 100 mg SC Q12@0600,1800 [facility] Last Admin: 09/12/20 04:28 Dose: 100 mg Documented by: Furosemide (Furosemide 40 Mg/4 Ml Vial) 40 mg IV BID@1000,1800 [facility] Last Admin: 09/12/20 08:36 Dose: 40 mg Documented by: Sodium Chloride () 250 mls @ 15 mls/hr IV .[id number] PRN PRN Reason: Saline Flush Sodium Chloride () 250 mls @ 15 mls/hr IV .[id number] PRN PRN Reason: Additional IVPB Infusion Remdesivir (Investigational) (100 mg/ Sodium Chloride) 250 mls @ 125 mls/hr IV DAILY [facility]; Protocol Stop: 09/14/20 11:59 Last Infusion: 09/12/20 12:36 Dose: Infused Documented by: Insulin Human Lispro (Insulin Lispro 100 Unit/Ml Insuln.Pen) 0 unit SC ACHS [facility]; Protocol Last Admin: 09/12/20 12:55 Dose: 4 units Documented by: Sacubitril/Valsartan (Sacubitril/Valsartan 24/26 Mg Tablet) 1 each PO BID [facility] Last Admin: 09/12/20 08:36 Dose: 1 each Documented by: Sodium Chloride (0.9% Saline Lock 10 Ml Syringe) 10 - 40 ml IV UD PRN PRN Reason: SALINE FLUSH Last Admin: 09/11/20 08:46 Dose: 20 ml Documented by: Spironolactone (Spironolactone 25 Mg Tablet) 6.25 mg PO DAILY [facility] Last Admin: 09/12/20 08:36 Dose: 6.25 mg Documented by: Medical Necessity - Tobacco Use Smoking Status: Never smoker Assessment/Plan All Active Problems COVID-19 (Acute) Acute respiratory failure with hypoxia (Acute) #1 acute COVID-19 infection with bilateral pneumonia-continue present treatment per pulmonary medicine and infectious diseases #2 acute on chronic systolic CHF-continue present medications #3 acute hypoxic respiratory failure secondary to acute Covid infection with bilateral pneumonia-patient is currently on room air at the time of this dictation #4 chronic kidney disease stage III #5 essential hypertension #6 hyperlipidemia #7 morbid obesity #8 ischemic cardiomyopathy #9 generalized debility Inpatient E&M: [id number] [facility] L2
[2020-09-12 17:56] LABS: Bedside Glucose 313 mg/dL (70-110)
[2020-09-12 22:15] LABS: Bedside Glucose 224 mg/dL (70-110)
--- NOTE | 2020-09-12 23:00 | NURSING ---
Contacted pt's daughter Dalia to discuss pt's hypotension and ask pt if a central line and vasopressors would be ok if needed since pt is a DNRCC-A code status. Explained procedure to insert a central line and indications for pressors. Daughter states that she would be in favor of both a central line and pressors to sustain an adequate BP if necessary.
[2020-09-13] VITALS (24 sets, daily range): BP systolic 83–128; BP diastolic 50–78; PULSE 56–93; RESP 12–29; TEMP 36.1–36.7; O2SAT 90–96
[2020-09-13 03:22] LABS: Hematocrit 42.2 % (37-47); Hemoglobin 13.6 g/dL (12.0-15.0); Mean Corp Hgb Conc 32.2 g/dL (32-36); Mean Corpuscular Hgb 30.6 pg (27.0-32.0); Mean Corpuscular Volume 94.8 fL (81-99); Platelet Count 236 K/mm3 (150-450); RBC Distribution Width CV 14.6 % (11.6-14.6); RBC Distribution Width SD 51.1 fl (35.1-43.9); Red Blood Count 4.45 M/mm3 (4.2-5.4)
[2020-09-13 03:39] LABS: ALB/GLOB Ratio 0.6 RATIO (0.9-2.4); AST(SGOT) 28 U/L (15-37); Alanine Aminotransfer ALT/SGPT 27 U/L (13-56); Albumin, Serum 2.4 g/dL (3.2-5.0); Alkaline Phosphatase 54 U/L (45-117); Anion Gap 9 (5-15); BUN 69 mg/dL (7-18); BUN/Creat Ratio 39.2 RATIO (10-20); Calcium,Total 8.6 mg/dL (8.5-10.1); Chloride 103 mmol/L (98-107); Creatinine, Serum 1.76 mg/dL (0.55-1.02); EST Glomerular Filtration Rate 29 mL/min (>60); Est Glom Filt Rate - Afr Amer 35 mL/min (>60); Estimated Creatinine Clearance 18.48 ml/min; Globulin 3.9 g/dL (2.2-4.2); Glucose 223 mg/dL (74-106); Potassium 4.1 mmol/L (3.5-5.1); Protein, Total 6.3 g/dL (6.4-8.2); Sodium Level 135 mmol/L (136-145)
[2020-09-13] MEDS: Enoxaparin 100 MG/ML Syringe SC (05:17)
--- NOTE | 2020-09-13 05:28 | NURSING ---
Taken off bipap per pt request. 2L O2 NC placed on pt. SpO2 92%. Pt alert, talking, wishing to call daughter. Pt's cell phone provided. Call light at side.
--- NOTE | 2020-09-13 06:18 | PN_ITS ---
Subjective: The patient was seen and examined at the bedside this morning. Events from the last 24 hours have been reviewed. The patient is currently afebrile, hemodynamically stable and maintaining appropriate oxygen saturations on 2 L/min by nasal cannula. The patient did tolerate BiPAP overnight without complication. Creatinine is up this morning to 1.76. The patient denies any shortness of breath this morning. The patient has already received convalescent plasma and is currently receiving remdesivir, Lovenox and Decadron. The patient's blood pressures have been a bit tenuous in light of attempts at diuresis. Objective: The patient's most recent lab work, culture data and imaging studies have all been personally reviewed. Surface echocardiogram from August 2020 revealed normal LV with an ejection fraction of 35%. There was also note of stage II diastolic dysfunction. General: Alert, Cooperative, Lethargic HEENT: Atraumatic, Normocephalic Oral: No Gingival or Mucosal Lesions/ Ulcerations Neck: Supple, No Nodes, Trachea Midline Lungs: No rhonchi, No wheeze, No rales, Diminished Cardiovascular: Normal S1, Normal S2, Irregular Rate Abdomen: Bowel Sounds Present, Soft, Non Tender, Obese Extremities: No clubbing, No cyanosis, No edema Skin: No breakdown Musculoskeletal: No Tenderness to Palpation of Joints or Extremities Lymphatic: No Cervical, Supraclavicular, or Inguinal Adenopathy Neurological: Cranial nerves II-XII grossly intact, Neuro grossly intact Psych/Mental Status: Flat Affect Vital Signs Temp Pulse Resp BP Pulse Ox 97.0 F L 85 19 H 94/66 92 09/13/20 06:11 09/13/20 06:11 09/13/20 06:11 09/13/20 06:11 09/13/20 06:11 Oxygen Flow Rate (L/min) 2 Oxygen Delivery Method Nasal Cannula Weight: 226 lb 10.163 oz Body Mass Index (BMI) 41.8 Intake and Output for Last 24 Hours 09/11/20 09/12/20 09/13/20 23:59 23:59 23:59 Intake Total 1050 / 1100 1595 / 1595 200 / 200 Output Total 1475 / 1775 1015 / 1015 150 / 150 Balance -425 / -675 580 / 580 50 / 50 Labs (Last 48 Hours) 09/11/20 09/11/20 09/11/20 08:26 11:21 17:15 WBC RBC Hgb Hct MCV MCH MCHC RDW Std Deviation RDW Coeff of Raul Plt Count MPV Sodium Potassium Chloride Carbon Dioxide Anion Gap BUN Creatinine Estim Creat Clear Calc Est GFR (MDRD) Af Amer Est GFR (MDRD) Non-Af BUN/Creatinine Ratio Glucose Calcium Phosphorus Magnesium Total Bilirubin AST ALT Alkaline Phosphatase Total Protein Albumin Globulin Albumin/Globulin Ratio POC Glucose 162 H 191 H 192 H 09/11/20 09/11/20 09/12/20 20:38 Unknown 04:05 WBC 10.5 RBC 4.21 Hgb 13.0 Hct 38.8 MCV 92.2 MCH 30.9 MCHC 33.5 RDW Std Deviation 49.2 H RDW Coeff of Raul 14.6 Plt Count 208 MPV 12.1 H Sodium Potassium Chloride Carbon Dioxide Anion Gap BUN Creatinine Estim Creat Clear Calc Est GFR (MDRD) Af Amer Est GFR (MDRD) Non-Af BUN/Creatinine Ratio Glucose Calcium Phosphorus 2.5 Magnesium 2.1 Total Bilirubin AST ALT Alkaline Phosphatase Total Protein Albumin Globulin Albumin/Globulin Ratio POC Glucose 242 H 09/12/20 09/12/20 09/12/20 04:05 08:28 12:41 WBC RBC Hgb Hct MCV MCH MCHC RDW Std Deviation RDW Coeff of Raul Plt Count MPV Sodium 134 L Potassium 3.3 L Chloride 101 Carbon Dioxide 25.0 Anion Gap 8 BUN 50 H Creatinine 1.54 H Estim Creat Clear Calc 21.12 Est GFR (MDRD) Af Amer 41 L Est GFR (MDRD) Non-Af 34 L BUN/Creatinine Ratio 32.5 H Glucose 196 H Calcium 8.6 Phosphorus Magnesium Total Bilirubin 0.30 AST 35 ALT 32 Alkaline Phosphatase 58 Total Protein 7.0 Albumin 2.8 L Globulin 4.2 Albumin/Globulin Ratio 0.7 L POC Glucose 218 H 331 H 09/12/20 09/12/20 09/13/20 16:52 22:03 03:15 WBC 9.0 RBC 4.45 Hgb 13.6 Hct 42.2 MCV 94.8 MCH 30.6 MCHC 32.2 RDW Std Deviation 51.1 H RDW Coeff of Raul 14.6 Plt Count 236 MPV 12.0 Sodium Potassium Chloride Carbon Dioxide Anion Gap BUN Creatinine Estim Creat Clear Calc Est GFR (MDRD) Af Amer Est GFR (MDRD) Non-Af BUN/Creatinine Ratio Glucose Calcium Phosphorus Magnesium Total Bilirubin AST ALT Alkaline Phosphatase Total Protein Albumin Globulin Albumin/Globulin Ratio POC Glucose 313 H 224 H 09/13/20 03:15 WBC RBC Hgb Hct MCV MCH MCHC RDW Std Deviation RDW Coeff of Raul Plt Count MPV Sodium 135 L Potassium 4.1 Chloride 103 Carbon Dioxide 23.0 Anion Gap 9 BUN 69 H Creatinine 1.76 H Estim Creat Clear Calc 18.48 Est GFR (MDRD) Af Amer 35 L Est GFR (MDRD) Non-Af 29 L BUN/Creatinine Ratio 39.2 H Glucose 223 H Calcium 8.6 Phosphorus Magnesium Total Bilirubin 0.20 AST 28 ALT 27 Alkaline Phosphatase 54 Total Protein 6.3 L Albumin 2.4 L Globulin 3.9 Albumin/Globulin Ratio 0.6 L POC Glucose Clinical Impression(s) from Imaging Studies Chest X-Ray 09/12/20 05:25 IMPRESSION: 1. Multilobar pulmonary infiltrates that could suggest pneumonia or pulmonary edema. Imaging follow-up recommended to ensure resolution. Electronically Signed: Jean-Pierre Young MD ([facility]) at 9:04 EDT , Service support , Medical Necessity - Tobacco Use Smoking Status: Never smoker Assessment/Plan All Active Problems COVID-19 (Acute) Acute respiratory failure with hypoxia (Acute) Afib (Acute) Afib (Acute) Abnormal cardiac enzyme level (Acute) RECOMMENDATIONS: 1. Continue Decadron and remdesivir to complete treatment course. 2. Place antihypertensives on hold. Hold Lasix as well, given tenuous hemodynamics. 3. Administer 500 cc fluid bolus. 4. Continue to wean supplemental oxygen to maintain saturations at or above 90%. 5. Continue therapeutic Lovenox. 6. Encourage incentive spirometer use and mobilize patient as tolerated. IMPRESSIONS: 1. Acute hypoxemic respiratory failure secondary to Covid pneumonia and CHF exacerbation Plan to continue current supportive measures. The patient has already received convalescent plasma and is currently amidst her treatment with remdesivir and Decadron, which will be continued. Given that her hemodynamics have been somewhat tenuous, I would recommend that her Lasix and antihypertensives be placed on hold. Plan to continue to wean supplemental oxygen to maintain saturations at or above 90%. Encourage incentive spirometer use and mobilize patient as tolerated. 2. Coronary artery disease status post CABG/history of congestive heart failure Surface echocardiogram did reveal combined systolic and diastolic heart failure with an ejection fraction of 35%. Although the patient was previously being diuresed, her Lasix has been placed on hold due to tenuous hemodynamics. 3. Acute on chronic kidney disease/morbid obesity/hypertension/hyperlipidemia Complicates care, management, recovery and prognosis. Continue home medications, with the exception of antihypertensives and Lasix for now. Encourage incentive spirometer use and mobilize patient as tolerated. This note was generated with [employer] dictation software. It may contain incorrect words, spelling, and punctuation that were not noted in checking the note before signing. Inpatient E&M: 05799 [facility] Hosp L3
[2020-09-13] MEDS: Furosemide 20 MG/2 ML VIAL IV (08:46)
[2020-09-13] MEDS: dexAMETHasone 10 MG/ML Vial 6 MG IV (08:46)
[2020-09-13] MEDS: Aspirin 81 MG TAB.CHEW PO (08:47)
[2020-09-13] MEDS: Spironolactone 25 MG Tablet 6.25 MG PO (08:47)
[2020-09-13] MEDS: Carvedilol 12.5 MG Tablet PO (08:47)
[2020-09-13] MEDS: SACUBITRIL/VALSARTAN 24/26 MG TABLET 1 EACH PO (08:47)
[2020-09-13] MEDS: Insulin Lispro 100 UNIT/ML INSULN.PEN SC ×4 (08:48→21:23)
[2020-09-13 10:55] LABS: Bedside Glucose 250 mg/dL (70-110)
--- NOTE | 2020-09-13 11:01 | PCM.PN.HOSP ---
Patient Problems: Active and Suspected Problems COVID-19 (Acute) Acute respiratory failure with hypoxia (Acute) Subjective: Patient seen and examined. She felt better today and was on 2 L of oxygen. She required BiPAP overnight. Of note, patient is not on oxygen at home. She has remained hemodynamically stable. Review of symptoms otherwise negative. Vitals/I&O's: Vital Signs Temp Pulse Resp BP Pulse Ox 97.8 F 69 18 106/51 L 94 09/13/20 08:05 09/13/20 08:05 09/13/20 08:05 09/13/20 08:05 09/13/20 08:05 Oxygen Flow Rate (L/min) 2 Oxygen Delivery Method Bi-pap Weight: 226 lb 10.163 oz Body Mass Index (BMI) 41.8 Intake and Output for Last 24 Hours 09/11/20 09/12/20 09/13/20 23:59 23:59 23:59 Intake Total 1050 / 1100 1595 / 1595 200 / 200 Output Total 1475 / 1775 1015 / 1015 150 / 150 Balance -425 / -675 580 / 580 50 / 50 General: Alert, Oriented x3, Cooperative, Lethargic HEENT: Atraumatic, PERRLA, EOMI, Normocephalic Oral: Dry Mucosa Neck: Supple, No JVD, Negative Carotid Bruits Lungs: - - Decreased breath sounds bibasilar. No wheezes or crackles. On 2 L of oxygen by nasal cannula. Cardiovascular: Regular rate, Regular Rhythm, Normal S1, Normal S2, No murmurs Abdomen: Bowel Sounds Present, Soft, Non Tender, Non-Distended, No Hepato-splenomegaly Extremities: No clubbing, No cyanosis, No edema, Capillary Refill Less than 3 Seconds Skin: No rashes, No breakdown Musculoskeletal: No Tenderness to Palpation of Joints or Extremities Lymphatic: No Cervical, Supraclavicular, or Inguinal Adenopathy Neurological: Cranial nerves II-XII grossly intact, Neuro grossly intact, Motor Exam 5/5 strength throughout Psych/Mental Status: Normal Affect, Appropriate, Alert and oriented to time, place, person, mood and affect Laboratory Results 09/12/20 12:41: POC Glucose 331 H 09/12/20 16:52: POC Glucose 313 H 09/12/20 22:03: POC Glucose 224 H 09/13/20 03:15: WBC 9.0, RBC 4.45, Hgb 13.6, Hct 42.2, MCV 94.8, MCH 30.6, MCHC 32.2, RDW Std Deviation 51.1 H, RDW Coeff of Raul 14.6, Plt Count 236, MPV 12.0 09/13/20 03:15: Sodium 135 L, Potassium 4.1, Chloride 103, Carbon Dioxide 23.0, Anion Gap 9, BUN 69 H, Creatinine 1.76 H, Estim Creat Clear Calc 18.48, Est GFR (MDRD) Af Amer 35 L, Est GFR (MDRD) Non-Af 29 L, BUN/Creatinine Ratio 39.2 H, Glucose 223 H, Calcium 8.6, Total Bilirubin 0.20, AST 28, ALT 27, Alkaline Phosphatase 54, Total Protein 6.3 L, Albumin 2.4 L, Globulin 3.9, Albumin/Globulin Ratio 0.6 L 09/13/20 10:46: POC Glucose 250 H Diagnostic Data Chest X-Ray 09/12/20 05:25 IMPRESSION: 1. Multilobar pulmonary infiltrates that could suggest pneumonia or pulmonary edema. Imaging follow-up recommended to ensure resolution. Electronically Signed: Jean-Pierre Young MD ([place]) at 9:04 EDT , Service support , Current Medications Albuterol Sulfate (Albuterol Ih 8.5 Gm (Proair) Inhaler (200 Puffs)) 2 puff INHALATION Q4H PRN PRN PRN Reason: Shortness of breath, wheezing Aspirin (Aspirin 81 Mg Tab.Chew) 81 mg PO DAILY@1000 [facility] Last Admin: 09/13/20 08:47 Dose: 81 mg Documented by: Carvedilol (Carvedilol 12.5 Mg Tablet) 12.5 mg PO DAILY [facility] Last Admin: 09/13/20 08:47 Dose: 12.5 mg Documented by: Dexamethasone Sodium Phosphate (Dexamethasone 10 Mg/Ml Vial) 6 mg IV DAILY [facility] Last Admin: 09/13/20 08:46 Dose: 6 mg Documented by: Enoxaparin Sodium (Enoxaparin 100 Mg/Ml Syringe) 100 mg SC DAILY [facility] Furosemide (Furosemide 20 Mg/2 Ml Vial) 20 mg IV BID@1000,1800 [facility] Last Admin: 09/13/20 08:46 Dose: 20 mg Documented by: Sodium Chloride () 250 mls @ 15 mls/hr IV .[id number] PRN PRN Reason: Saline Flush Sodium Chloride () 250 mls @ 15 mls/hr IV .[id number] PRN PRN Reason: Additional IVPB Infusion Remdesivir (Investigational) (100 mg/ Sodium Chloride) 250 mls @ 125 mls/hr IV DAILY [facility]; Protocol Stop: 09/14/20 11:59 Last Admin: 09/13/20 10:49 Dose: 125 mls/hr Documented by: Insulin Human Lispro (Insulin Lispro 100 Unit/Ml Insuln.Pen) 0 unit SC [facility]; Protocol Last Admin: 09/13/20 10:49 Dose: 2 units Documented by: Sacubitril/Valsartan (Sacubitril/Valsartan 24/26 Mg Tablet) 1 each PO BID [facility] Last Admin: 09/13/20 08:47 Dose: 1 each Documented by: Sodium Chloride (0.9% Saline Lock 10 Ml Syringe) 10 - 40 ml IV UD PRN PRN Reason: SALINE FLUSH Last Admin: 09/11/20 08:46 Dose: 20 ml Documented by: Spironolactone (Spironolactone 25 Mg Tablet) 6.25 mg PO DAILY [facility] Last Admin: 09/13/20 08:47 Dose: 6.25 mg Documented by: STROKE Vital Signs/Narrative: Vital Signs Temp Pulse Resp BP Pulse Ox 09/13/20 08:05 97.8 F 69 18 106/51 L 94 09/13/20 07:30 82 Medical Necessity - Tobacco Use Smoking Status: Never smoker Assessment/Plan All Active Problems COVID-19 (Acute) Acute respiratory failure with hypoxia (Acute) # Acute hypoxic respiratory failure due to COVID 19 pneumonia Now on 2 L of oxygen. Received remdesivir and convalescent plasma and is on IV Decadron. Pulmonology and infectious diseases on board. Titrate oxygen to maintain saturation above 90%. # Covid 19 pneumonia as above #Afib: patient was noted to have gone into afib yesterday afternoon. She ahs been paroxysmally in and out of afib. carvedilol was increased, but BP is running low today. will decrease carvedilol dose, and consult cardiology start therapeutic dose of lovenox # Acute on chronic combined heart failure on IV lasix 20mg bid 2D echo showed EF of 35% with stage 2 diastolic dysfunction on carvedilol, and entresto as well as spironolactone. # CKD stage 3: Cr is 1.76. # Essential hypertension:on carvedilol # hyperlipidemia: on statin. # Ischemic cardiomyopathy: On aspirin and carvedilol DVT prophylaxis: therapeutic dose of lovenox Inpatient E&M: 97736 Subs Hosp L3
--- NOTE | 2020-09-13 14:20 | PCM.PN.ID ---
Patient Problems: Active and Suspected Problems COVID-19 (Acute) Acute respiratory failure with hypoxia (Acute) Subjective: Feeling ok, mild dyspnea and cough. - Physical Exam Vitals/I&O's: Vital Signs Temp Pulse Resp BP Pulse Ox 98.0 F 56 L 20 H 83/65 L 94 09/13/20 12:00 09/13/20 12:00 09/13/20 12:00 09/13/20 12:00 09/13/20 12:00 Oxygen Flow Rate (L/min) 2 Oxygen Delivery Method Nasal Cannula Weight: 102.8 kg Body Mass Index (BMI) 41.8 Intake and Output for Last 24 Hours 09/11/20 09/12/20 09/13/20 23:59 23:59 23:59 Intake Total 1050 / 1100 1595 / 1595 950 / 950 Output Total 1475 / 1775 1015 / 1015 150 / 150 Balance -425 / -675 580 / 580 800 / 800 General: Alert, Cooperative, No apparent distress Lungs: Diminished Cardiovascular: Regular rate, Regular Rhythm Abdomen: Soft, Non Tender, Non-Distended Skin: No rashes Laboratory Results 09/12/20 12:41: POC Glucose 331 H 09/12/20 16:52: POC Glucose 313 H 09/12/20 22:03: POC Glucose 224 H 09/13/20 03:15: WBC 9.0, RBC 4.45, Hgb 13.6, Hct 42.2, MCV 94.8, MCH 30.6, MCHC 32.2, RDW Std Deviation 51.1 H, RDW Coeff of Raul 14.6, Plt Count 236, MPV 12.0 09/13/20 03:15: Sodium 135 L, Potassium 4.1, Chloride 103, Carbon Dioxide 23.0, Anion Gap 9, BUN 69 H, Creatinine 1.76 H, Estim Creat Clear Calc 18.48, Est GFR (MDRD) Af Amer 35 L, Est GFR (MDRD) Non-Af 29 L, BUN/Creatinine Ratio 39.2 H, Glucose 223 H, Calcium 8.6, Total Bilirubin 0.20, AST 28, ALT 27, Alkaline Phosphatase 54, Total Protein 6.3 L, Albumin 2.4 L, Globulin 3.9, Albumin/Globulin Ratio 0.6 L 09/13/20 10:46: POC Glucose 250 H Current Medications Albuterol Sulfate (Albuterol Ih 8.5 Gm (Proair) Inhaler (200 Puffs)) 2 puff INHALATION Q4H PRN PRN PRN Reason: Shortness of breath, wheezing Aspirin (Aspirin 81 Mg Tab.Chew) 81 mg PO DAILY@1000 [facility] Last Admin: 09/13/20 08:47 Dose: 81 mg Documented by: Carvedilol (Carvedilol 6.25 Mg Tablet) 6.25 mg PO BID [facility] Dexamethasone Sodium Phosphate (Dexamethasone 10 Mg/Ml Vial) 6 mg IV DAILY [facility] Last Admin: 09/13/20 08:46 Dose: 6 mg Documented by: Enoxaparin Sodium (Enoxaparin 100 Mg/Ml Syringe) 100 mg SC DAILY [facility] Heparin Sodium (Beef Lung) (Heparin Pf Lock 10 Units/Ml 50 Units/5 Ml Syringe) 50 units IV UD PRN PRN Reason: PICC Line Heparin Flush Sodium Chloride () 250 mls @ 15 mls/hr IV .[id number] PRN PRN Reason: Saline Flush Sodium Chloride () 250 mls @ 15 mls/hr IV .[id number] PRN PRN Reason: Additional IVPB Infusion Remdesivir (Investigational) (100 mg/ Sodium Chloride) 250 mls @ 125 mls/hr IV DAILY [facility]; Protocol Stop: 09/14/20 11:59 Last Infusion: 09/13/20 13:26 Dose: Infused Documented by: Insulin Human Lispro (Insulin Lispro 100 Unit/Ml Insuln.Pen) 0 unit SC ACHS [facility]; Protocol Last Admin: 09/13/20 10:49 Dose: 2 units Documented by: Sacubitril/Valsartan (Sacubitril/Valsartan 24/26 Mg Tablet) 1 each PO BID [facility] Last Admin: 09/13/20 08:47 Dose: 1 each Documented by: Sodium Chloride (0.9% Saline Lock 10 Ml Syringe) 10 - 40 ml IV UD PRN PRN Reason: SALINE FLUSH Last Admin: 09/11/20 08:46 Dose: 20 ml Documented by: Sodium Chloride (0.9% Saline Lock 10 Ml Syringe) 10 - 40 ml IV UD PRN PRN Reason: Open End PICC Flush Sodium Chloride (0.9 % Nacl (Sterile) Posiflush 10 Ml) 10 - 40 ml IV UD PRN PRN Reason: Port access or dressing change Spironolactone (Spironolactone 25 Mg Tablet) 6.25 mg PO DAILY [facility] Last Admin: 09/13/20 08:47 Dose: 6.25 mg Documented by: Medical Necessity - Tobacco Use Smoking Status: Never smoker Route of nutrition/ use of supplements: [] Nutritional Intake: [] IV Site: [] Gandhi Catheter: [] - Assessment/Plan Antibiotics: [] Assessment/Plan: [] Active and Suspected Problems COVID-19 (Acute) Acute respiratory failure with hypoxia (Acute) Covid with acute resp failure with hypoxia and SANKET - reviewed [facility] records, cr went up from 1.19 to 1.5 with iv lasix. Cont dex, remdesivir. Received plasma. Ok for d/c home with o2 as needed per primary team. No need for further steroids at discharge. Isolate for 14 days total from start of symptoms. Will follow
--- NOTE | 2020-09-13 15:30 | CASEMGMT ---
Addendum entered by Pipe Hathaway 09/13/20 22:35: 1650: PT/OT evals have been completed. Pt requiring 2 assist w/transfer and additional therapy recommended. Call placed back to pt's daughter, Dalia, and she was made aware. She states, if her mother is too weak to return home, that they may consider SNF. She placed call to her father and sis-in-law and called this RN CM back. Dalia inquired if her mother can stay @ [facility] until she is well enough to return home or until COVID results come back negative. Dalia made aware she would not be able to stay as an IN-pt if she does not require acute level of care. She voices understanding. Dalia had several questions re: SNF options, cost, etc. She was made aware SW could contact her tomorrow to answer her questions/discuss things further. She states 1st option of SNF is [facility] but reports she was informed they do not accept pt's with COVID. Message left on RADHA, ANIYAH Deutsch to inform her of same. Original Note: RN CM ASSESSMENT Pt is COVID-19 positive and in isolation precautions. Call placed to pt's room and spoke w/pt. Introduced self and role of RN CM. Pt asks for RN CM to call her daughter, Dalia, to discuss things with her, stating, She takes care of everything. Call placed to Dalia and the following information obtained from her. Care providers, pharmacy, and demographics verified/updated at this time. PCP: Dr Bryant Yan Specialists:Dr Karson Jerry--drug regulatory affairs specialist in [facility]: [facility] [employer] Insurance: AA Prescription Benefit: none Living Will/HPOA: Dalia thinks pt completed but she is not sure. LNOK:, Cornel. Daughter, Dalia. 1 other dtr and 2 sons Living Arrangements: Lives with her in 2-story w/FFSU. Ramp entrance. assists pt w/dressing and some home mgmt tasks. Dalia assists w/bathing, home mgmt tasks, manages medications and appts, and prepares supper every night. States someone is with pt at all times. Hire cleaning lady every other week. Home quarantine: Reviewed/discussed importance of home isolation precautions. Dalia aware her father and herself should follow 14-day self quarantine. Grandchildren can bring groceries/supplies and Dalia states pt has enough medications for 2-weeks. Dalia has masks but pt/ do not have masks and she will try and purchase some. Transportation: Dalia, son, DME: States has the following DME:walk-in shower w/shower chair, raised toilet seat, grab bars, hand held shower, walker, W/C. Does not have home O2. No preference of DME company. Pt has a generator. States no need for further DME at this time. HHC/SNF: Hx of going to [facility] and had HHC, but Dalia does not remember name of agency. Discussed options of SNF vs HHC. Dalia states would prefer for pt to return home and may benefit from HHC but she does not know if her father will be agreeable to paying for this. She states will discuss this w/her father. CM to follow for home oxygen needs and any further discharge planning/needs. Pt voices no further concerns/needs at this time. Advised pt to ask for CM if any further questions/concerns/needs arise. Voices understanding. PLAN: TBD. Follow PT/OT. May need oxygen @ discharge. Follow for Anti-Coag Nicole HO RN CM
--- NOTE | 2020-09-13 15:55 | CON.PCM_ITS ---
Problem List (1) Afib Status: Acute (2) Abnormal cardiac enzyme level Status: Acute (3) Coronary artery disease Status: Chronic Qualifiers: Coronary Disease-Associated Artery/Lesion type: [place] artery [place] vs. transplanted heart: [place] heart Associated angina: without angina Qualified Code(s): I25.10 - Atherosclerotic heart disease of [place] coronary artery without angina pectoris (4) S/P PTCA (percutaneous transluminal coronary angioplasty) Status: Chronic (5) S/P CABG (coronary artery bypass graft) Status: Chronic (6) Cardiomyopathy Status: Chronic (7) Systolic CHF, acute on chronic Status: Chronic (8) Renal insufficiency Status: Chronic (9) Morbid obesity due to excess calories Status: Chronic (10) COVID-19 Status: Acute Reason for Consult Date of Consultation: 09/13/20 History of Present Illness: The patient is a 85 year old white female who is being referred for evaluation of atrial fibrillation, abnormal cardiac enzymes, history of CAD, PCI, CABG, ischemic mediated cardiomyopathy, CHF, renal insufficiency, superimposed upon a diagnosis of COVID-19 positivity. She reportedly has been feeling ill recently, febrile, weak, loss of appetite, all which led her to her local emergency department at [facility]. Based upon ongoing issues and concerns she was found to be COVID-19 positive and subsequently transferred to [facility] for further evaluation and care. She was placed in the ICU. She is currently on O2 nasal cannula at 5 L. Apparently there has been a request by the patient that she not receive intubation if need be. During this time at the outside hospital she was noted to have sinus rhythm and abnormal cardiac enzymes/troponin I levels. At [facility] she was noted to have sinus rhythm and then atrial fibrillation. She continued to have abnormal troponin I levels. Her ECG demonstrated atrial fibrillation with PVCs with a leftward axis with poor R wave progression and nonspecific ST and T wave changes. She underwent a transthoracic echocardiogram. The results are as noted below. Her chest x-ray suggested bilateral infiltrates. There has been no report of ongoing chest discomfort. There is been no report of near syncope or syncope. There has been no report of chronic lower extremity peripheral pitting edema. [] Past Medical History Allergies/Adverse Reactions: Allergies No Known Allergies Allergy (Verified 09/10/20 17:52) Home Medications: Ambulatory Orders Medication Instructions Recorded Bumetanide 1 mg PO DAILY 09/10/20 Carvedilol [Coreg] 6.25 mg PO DAILY 09/10/20 Sacubitril/Valsartan 24/26 mg 1 tab PO BID 09/10/20 [Entresto 24 mg-26 mg Tablet] Spironolactone 0.25 tab PO DAILY 09/10/20 Past Medical History (Chronic Problems): Chronic Problems Coronary artery disease (Chronic) Morbid obesity due to excess calories (Chronic) Renal insufficiency (Chronic) Systolic CHF, acute on chronic (Chronic) S/P PTCA (percutaneous transluminal coronary angioplasty) (Chronic) S/P CABG (coronary artery bypass graft) (Chronic) Cardiomyopathy (Chronic) Surgical History: coronary bypass surgery Psychiatric History: No pertinent psych hx OPERATIONS REPRESENTATIVE History: No pertinent OPERATIONS REPRESENTATIVE history - *Family History Maternal History Items: No pertinent history Paternal History Items: No pertinent history Lives: With Family Smoking Status: Never smoker Alcohol: None Drugs: None Review of Systems - Review of Systems General: Reports: Fever, Weakness, Decreased Appetite. Denies: Fatigue, Night Sweats Cardiovascular: Reports: Shortness of Breath, Peripheral Edema. Denies: Chest Discomfort, Orthopnea, PND, Palpitations, Lightheadedness, Dizziness, Near Syncope, Syncope Respiratory: Reports: Cough, Shortness of Breath. Denies: Hemoptysis Gastrointestinal: Denies: Hematemesis, Hematochezia, Melena Genitourinary: Denies: Dysuria, Hematuria Skin: Denies: Rash Subjectve: Is an 85-year-old white female who appears to be awake and alert at this time wearing O2 nasal cannula. Objective: Vital Signs Temp Pulse Resp BP Pulse Ox 98.0 F 76 20 H 83/65 L 94 09/13/20 12:00 09/13/20 15:30 09/13/20 12:00 09/13/20 12:00 09/13/20 12:00 Oxygen Flow Rate (L/min) 2 Oxygen Delivery Method Nasal Cannula Weight: 226 lb 10.163 oz Body Mass Index (BMI) 41.8 Intake and Output for Last 24 Hours 09/11/20 09/12/20 09/13/20 23:59 23:59 23:59 Intake Total 1050 / 1100 1595 / 1595 950 / 950 Output Total 1475 / 1775 1015 / 1015 150 / 150 Balance -425 / -675 580 / 580 800 / 800 Note: The patient's examination findings are taken from the [facility] medical staff to call examination. General: Awake, Cooperative, Obese HEENT: Atraumatic, Normocephalic Lungs: Diminished Rc Bases Cardiovascular: Irregular Rhythm, Normal S1, Normal S2 Abdomen: Bowel Sounds Present, Soft, Obese Extremities: - - Positive bilateral lower extremity peripheral pitting edema Psych/Mental Status: Appropriate 09/13/20 03:15: WBC 9.0, RBC 4.45, Hgb 13.6, Hct 42.2, MCV 94.8, MCH 30.6, MCHC 32.2, Plt Count 236, MPV 12.0 09/13/20 03:15: Sodium 135 L, Potassium 4.1, Chloride 103, Carbon Dioxide 23.0, Anion Gap 9, BUN 69 H, Creatinine 1.76 H, Est GFR (MDRD) Af Amer 35 L, Est GFR (MDRD) Non-Af 29 L, BUN/Creatinine Ratio 39.2 H, Glucose 223 H, Calcium 8.6, Total Bilirubin 0.20 Rhythm: Atrial fibrillation EKG: As noted above ECHO: Interpretation Summary Normal left ventricle. Concentric left ventricular hypertrophy. The estimated ejection fraction is 35 %. Moderate global left ventricular systolic dysfunction. apical, septal and postero-lateral hypokineis The left atrium is moderately enlarged. Mild (1+) eccentric mitral valve insufficiency. Normal pulmonary artery pressure. Mild tricuspid valve insufficiency. Aortic sclerosis, no stenosis. Stage 2 diastolic dysfunction. CXR: As noted above: Please see official report Assessment/Plan 1. Atrial fibrillation Patient does have atrial fibrillation. The etiology may be multifactorial. This could be related to a combination of her cardiovascular disease, her ongoing pneumonitis, superimposed upon her age, etc. At the present time she will need to continue rate control therapy with adjustment as needed. It may not be unreasonable as this may be paroxysmal to attempt antiarrhythmic therapy with IV amiodarone. She may need to be considered for systemic anticoagulant therapy unless otherwise contraindicated. 2. Abnormal cardiac enzymes She does have abnormal troponin I levels. This may be a type II event secondary to supply demand mismatch from her ongoing noncardiovascular issues superimposed on her cardiovascular disease. At the moment she will continue medical management. There are no immediate plans for further invasive evaluation or care at this time. 3. CAD status post status post CABG The patient has a history of CAD with revascularization therapy with both PCI and CABG. The details are unknown. At the present time the patient will continue to be monitored. She will continue medical management as best as possible. 4. Ischemic mediated cardiomyopathy The patient has been reported as having an underlying ischemic mediated cardiomyopathy with diminished LV systolic function. The patient will need to continue medical therapy as she is able based on her ongoing clinical conditions and her vital signs (episodes of hypotension) and renal insufficiency-all taken into consideration. 5. CHF: Acute on chronic systolic There were concerns patient may be having acute on chronic systolic CHF. At the moment she will continue to be monitored and followed. She can receive additional diuretic therapy as needed to assist with her underlying cardiovascular/pulmonary status. She would need to have close monitoring of her vital signs and renal function during this time. 6. Renal insufficiency Her creatinine level is elevated. Again this will need to be monitored. Her medications will need to be adjusted as needed. 7. Obesity The patient is unfortunately obese. This does have to be taken into consideration with her overall evaluation and care. 8. COVID-19 positive She does have findings compatible with and a laboratory study compatible with COVID-19 positivity. She is undergoing evaluation care by pulmonology/critical care medicine. This note was generated using a voice recognition system and there may be incorrect words, spelling or punctuation that were not noted when reviewing the office note prior to saving.
[2020-09-13] MEDS: Amiodarone 360 MG in Dextrose 5% Viaflo Bag 192.8 ML 33.3 MG CONT INF (17:26)
[2020-09-13 17:31] LABS: Bedside Glucose 270 mg/dL (70-110)
--- NOTE | 2020-09-13 20:30 | RAD_ITS ---
HISTORY: PICC placement EXAM: XR Chest 1 View: COMPARISON: September 12, 2020 FINDINGS: # of images incl. paperwork: 2 Right arm PICC tip terminates superimposed over the SVC just below the level of the right main bronchus. This is new. Sternal wires persists. Tortuosity and calcification within the descending thoracic aorta persists. Pulmonary hypoexpansion remains. Lung disease remains bilaterally. Obscuration of the left heart border and the left hemidiaphragm are slightly less than the previous study Heart is not enlarged. No acute osseous pathology perceived. Pulmonary vascularity is slightly indistinct. Likely small left pleural effusions. RAD/CXR for Line Placement IMPRESSION: Adequate PICC tip position.. at 2144 Reported and signed by: Raffy Gray MD Electronically Signed: Raffy Gray MD at 21:43 EDT Tel , Service support ,
[2020-09-13] MEDS: Carvedilol 3.125 MG TABLET PO (21:47)
[2020-09-13 22:00] LABS: Bedside Glucose 441 mg/dL (70-110)
[2020-09-13] MEDS: Amiodarone 360 MG in Dextrose 5% Viaflo Bag 192.8 ML 16.7 MG CONT INF (23:42)
[2020-09-14] VITALS (32 sets, daily range): BP systolic 95–137; BP diastolic 52–97; PULSE 51–72; RESP 12–26; TEMP 35.9–36.7; O2SAT 90–96
[2020-09-14 04:38] LABS: White Blood Count 10.9 K/mm3 (4.4-11.0)
[2020-09-14 04:39] LABS: Hematocrit 40.1 % (37-47); Mean Corp Hgb Conc 32.4 g/dL (32-36); Mean Corpuscular Hgb 30.6 pg (27.0-32.0); Mean Corpuscular Volume 94.4 fL (81-99); Mean Platelet Vol. 12.4 fl (6.2-12.0); Platelet Count 270 K/mm3 (150-450); RBC Distribution Width CV 14.6 % (11.6-14.6); RBC Distribution Width SD 50.8 fl (35.1-43.9); Red Blood Count 4.25 M/mm3 (4.2-5.4)
[2020-09-14] MEDS: Enoxaparin 100 MG/ML Syringe SC ×2 (05:51→18:14)
--- NOTE | 2020-09-14 06:09 | PCM.PN.INT ---
Subjective: The patient was seen and examined at the bedside this morning. Events from the last 24 hours have been reviewed. The patient is currently afebrile, hemodynamically stable and maintaining appropriate oxygen saturations on 4 L/min via nasal cannula. The patient remains in atrial fibrillation and is somewhat bradycardic this morning on amiodarone. She did tolerate BiPAP once again overnight. Objective: The patient's most recent lab work, culture data and imaging studies have all been personally reviewed. Surface echocardiogram from August 2020 revealed normal LV with an ejection fraction of 35%. There was also note of stage II diastolic dysfunction. General: Alert, Cooperative, No apparent distress HEENT: Atraumatic, Normocephalic Oral: Moist Mucosa Neck: Supple, No Nodes, Trachea Midline Lungs: No rhonchi, No wheeze, No rales, Diminished Cardiovascular: Normal S1, Normal S2, Bradycardic, Irregular Rate Abdomen: Bowel Sounds Present, Soft, Non Tender, Obese Extremities: No clubbing, No cyanosis, No edema Skin: - - No significant change from previous Musculoskeletal: No Tenderness to Palpation of Joints or Extremities Lymphatic: No Cervical, Supraclavicular, or Inguinal Adenopathy Neurological: Cranial nerves II-XII grossly intact, Neuro grossly intact Psych/Mental Status: Normal Affect, Appropriate Vital Signs Temp Pulse Resp BP Pulse Ox 97 F L 63 25 H 124/71 H 91 09/14/20 04:00 09/14/20 05:00 09/14/20 05:00 09/14/20 05:00 09/14/20 05:00 Oxygen Flow Rate (L/min) 4 Oxygen Delivery Method Nasal Cannula Weight: 226 lb 10.163 oz Body Mass Index (BMI) 41.8 Intake and Output for Last 24 Hours 09/12/20 09/13/20 09/14/20 23:59 23:59 23:59 Intake Total 1595 / 1595 1220 / 1220 50 / 50 Output Total 1015 / 1015 475 / 575 200 / 200 Balance 580 / 580 745 / 645 -150 / -150 Labs (Last 48 Hours) 09/12/20 09/12/20 09/12/20 08:28 12:41 16:52 WBC RBC Hgb Hct MCV MCH MCHC RDW Std Deviation RDW Coeff of Raul Plt Count MPV Sodium Potassium Chloride Carbon Dioxide Anion Gap BUN Creatinine Estim Creat Clear Calc Est GFR (MDRD) Af Amer Est GFR (MDRD) Non-Af BUN/Creatinine Ratio Glucose Calcium Total Bilirubin AST ALT Alkaline Phosphatase Total Protein Albumin Globulin Albumin/Globulin Ratio POC Glucose 218 H 331 H 313 H 09/12/20 09/13/20 09/13/20 22:03 03:15 03:15 WBC 9.0 RBC 4.45 Hgb 13.6 Hct 42.2 MCV 94.8 MCH 30.6 MCHC 32.2 RDW Std Deviation 51.1 H RDW Coeff of Raul 14.6 Plt Count 236 MPV 12.0 Sodium 135 L Potassium 4.1 Chloride 103 Carbon Dioxide 23.0 Anion Gap 9 BUN 69 H Creatinine 1.76 H Estim Creat Clear Calc 18.48 Est GFR (MDRD) Af Amer 35 L Est GFR (MDRD) Non-Af 29 L BUN/Creatinine Ratio 39.2 H Glucose 223 H Calcium 8.6 Total Bilirubin 0.20 AST 28 ALT 27 Alkaline Phosphatase 54 Total Protein 6.3 L Albumin 2.4 L Globulin 3.9 Albumin/Globulin Ratio 0.6 L POC Glucose 224 H 09/13/20 09/13/20 09/13/20 10:46 17:17 21:20 WBC RBC Hgb Hct MCV MCH MCHC RDW Std Deviation RDW Coeff of Raul Plt Count MPV Sodium Potassium Chloride Carbon Dioxide Anion Gap BUN Creatinine Estim Creat Clear Calc Est GFR (MDRD) Af Amer Est GFR (MDRD) Non-Af BUN/Creatinine Ratio Glucose Calcium Total Bilirubin AST ALT Alkaline Phosphatase Total Protein Albumin Globulin Albumin/Globulin Ratio POC Glucose 250 H 270 H 441 H 09/14/20 09/14/20 04:20 04:20 WBC 10.9 RBC 4.25 Hgb 13.0 Hct 40.1 MCV 94.4 MCH 30.6 MCHC 32.4 RDW Std Deviation 50.8 H RDW Coeff of Raul 14.6 Plt Count 270 MPV 12.4 H Sodium Pending Potassium Pending Chloride Pending Carbon Dioxide Pending Anion Gap Pending BUN Pending Creatinine Pending Estim Creat Clear Calc Est GFR (MDRD) Af Amer Pending Est GFR (MDRD) Non-Af Pending BUN/Creatinine Ratio Pending Glucose Pending Calcium Pending Total Bilirubin Pending AST Pending ALT Pending Alkaline Phosphatase Pending Total Protein Pending Albumin Pending Globulin Albumin/Globulin Ratio POC Glucose Clinical Impression(s) from Imaging Studies Chest X-Ray 09/12/20 05:25 IMPRESSION: 1. Multilobar pulmonary infiltrates that could suggest pneumonia or pulmonary edema. Imaging follow-up recommended to ensure resolution. Electronically Signed: Jean-Pierre Young MD ([place]) at 9:04 EDT , Service support , Chest X-Ray 09/13/20 20:30 IMPRESSION: Adequate PICC tip position.. at 2144 Reported and signed by: Raffy Gray MD Electronically Signed: Raffy Gray MD at 21:43 EDT Tel , Service support , Medical Necessity - Tobacco Use Smoking Status: Never smoker Assessment/Plan All Active Problems COVID-19 (Acute) Acute respiratory failure with hypoxia (Acute) Afib (Acute) Afib (Acute) Abnormal cardiac enzyme level (Acute) RECOMMENDATIONS: 1. Continue Decadron and remdesivir to complete treatment course. 2. Continue rate/rhythm control strategy per cardiology recommendations. 3. Continue to wean supplemental oxygen to maintain saturations at or above 90%. 4. Continue therapeutic Lovenox. 5. Encourage incentive spirometer use and mobilize patient as tolerated. IMPRESSIONS: 1. Acute hypoxemic respiratory failure secondary to Covid pneumonia and CHF exacerbation Plan to continue current supportive measures. The patient has already received convalescent plasma and is currently amidst her treatment with remdesivir and Decadron, which will be continued. Plan to continue to wean supplemental oxygen to maintain saturations at or above 90%. Encourage incentive spirometer use and mobilize patient as tolerated. 2. Coronary artery disease status post CABG/history of congestive heart failure/new onset atrial fibrillation Surface echocardiogram did reveal combined systolic and diastolic heart failure with an ejection fraction of 35%. Although the patient was previously being diuresed, her Lasix was placed on hold due to tenuous hemodynamics. Will defer management of her atrial fibrillation to cardiology. If the patient remains hemodynamically stable over the course of today, gentle diuresis can be resumed. 3. Acute on chronic kidney disease/morbid obesity/hypertension/hyperlipidemia Complicates care, management, recovery and prognosis. Continue home medications, with the exception of antihypertensives and Lasix for now. Encourage incentive spirometer use and mobilize patient as tolerated. This note was generated with [employer] dictation software. It may contain incorrect words, spelling, and punctuation that were not noted in checking the note before signing. Inpatient E&M: 34454 Subs Hosp L2
[2020-09-14 06:24] LABS: ALB/GLOB Ratio 0.6 RATIO (0.9-2.4); AST(SGOT) 19 U/L (15-37); Alanine Aminotransfer ALT/SGPT 24 U/L (13-56); Albumin, Serum 2.1 g/dL (3.2-5.0); Alkaline Phosphatase 53 U/L (45-117); Anion Gap 12 (5-15); BUN 78 mg/dL (7-18); BUN/Creat Ratio 45.1 RATIO (10-20); Calcium,Total 8.2 mg/dL (8.5-10.1); Chloride 100 mmol/L (98-107); Creatinine, Serum 1.73 mg/dL (0.55-1.02); EST Glomerular Filtration Rate 30 mL/min (>60); Est Glom Filt Rate - Afr Amer 36 mL/min (>60); Globulin 3.7 g/dL (2.2-4.2); Glucose 381 mg/dL (74-106); Potassium 3.9 mmol/L (3.5-5.1); Protein, Total 5.8 g/dL (6.4-8.2); Sodium Level 132 mmol/L (136-145)
--- NOTE | 2020-09-14 07:39 | PCM.PN.HOSP ---
Patient Problems: Active and Suspected Problems COVID-19 (Acute) Acute respiratory failure with hypoxia (Acute) Afib (Acute) Abnormal cardiac enzyme level (Acute) Subjective: Patient seen and examined. No active complaints this morning. Review of systems otherwise negative. She has remained hemodynamically stable. She is on 4 L of oxygen by nasal cannula. She has no complaints this morning. She went into Afib with RVR, and was started on amiodarone drip by cardiology this morning. Patient was a bit bradycardic this morning with heart rate in the 50s. Vitals/I&O's: Vital Signs Temp Pulse Resp BP Pulse Ox 97 F L 58 L 17 117/97 H 93 09/14/20 04:00 09/14/20 07:17 09/14/20 07:00 09/14/20 07:00 09/14/20 07:00 Oxygen Flow Rate (L/min) 4 Oxygen Delivery Method Nasal Cannula Weight: 226 lb 10.163 oz Body Mass Index (BMI) 41.8 Intake and Output for Last 24 Hours 09/12/20 09/13/20 09/14/20 23:59 23:59 23:59 Intake Total 1595 / 1595 1220 / 1220 170 / 170 Output Total 1015 / 1015 475 / 575 275 / 275 Balance 580 / 580 745 / 645 -105 / -105 General: Alert, Oriented x3, Cooperative, Lethargic HEENT: Atraumatic, PERRLA, EOMI, Normocephalic Oral: Dry Mucosa Neck: Supple, No JVD, Negative Carotid Bruits Lungs: - - Decreased breath sounds bibasilar. No wheezes or crackles. On 4 L of oxygen by nasal cannula. Cardiovascular: afib, bradycardic Abdomen: Bowel Sounds Present, Soft, Non Tender, Non-Distended, No Hepato-splenomegaly Extremities: No clubbing, No cyanosis, No edema, Capillary Refill Less than 3 Seconds Skin: No rashes, No breakdown Musculoskeletal: No Tenderness to Palpation of Joints or Extremities Lymphatic: No Cervical, Supraclavicular, or Inguinal Adenopathy Neurological: Cranial nerves II-XII grossly intact, Neuro grossly intact, Motor Exam 5/5 strength throughout Psych/Mental Status: Normal Affect, Appropriate, Alert and oriented to time, place, person, mood and affect Laboratory Results 09/13/20 10:46: POC Glucose 250 H 09/13/20 17:17: POC Glucose 270 H 09/13/20 21:20: POC Glucose 441 H 09/14/20 04:20: WBC 10.9, RBC 4.25, Hgb 13.0, Hct 40.1, MCV 94.4, MCH 30.6, MCHC 32.4, RDW Std Deviation 50.8 H, RDW Coeff of Raul 14.6, Plt Count 270, MPV 12.4 H 09/14/20 04:20: Sodium 132 L, Potassium 3.9, Chloride 100, Carbon Dioxide 20.0 L, Anion Gap 12, BUN 78 H, Creatinine 1.73 H, Estim Creat Clear Calc 18.80, Est GFR (MDRD) Af Amer 36 L, Est GFR (MDRD) Non-Af 30 L, BUN/Creatinine Ratio 45.1 H, Glucose 381 H, Calcium 8.2 L, Total Bilirubin 0.20, AST 19, ALT 24, Alkaline Phosphatase 53, Total Protein 5.8 L, Albumin 2.1 L, Globulin 3.7, Albumin/Globulin Ratio 0.6 L Current Medications Albuterol Sulfate (Albuterol Ih 8.5 Gm (Proair) Inhaler (200 Puffs)) 2 puff INHALATION Q4H PRN PRN PRN Reason: Shortness of breath, wheezing Aspirin (Aspirin 81 Mg Tab.Chew) 81 mg PO DAILY@1000 [facility] Last Admin: 09/13/20 08:47 Dose: 81 mg Documented by: Carvedilol (Carvedilol 3.125 Mg Tablet) 3.125 mg PO BID [facility] Last Admin: 09/13/20 21:47 Dose: 3.125 mg Documented by: Dexamethasone Sodium Phosphate (Dexamethasone 10 Mg/Ml Vial) 6 mg IV DAILY [facility] Last Admin: 09/13/20 08:46 Dose: 6 mg Documented by: Enoxaparin Sodium (Enoxaparin 100 Mg/Ml Syringe) 100 mg SC Q12@0600,1800 [facility] Last Admin: 09/14/20 05:51 Dose: 100 mg Documented by: Heparin Sodium (Beef Lung) (Heparin Pf Lock 10 Units/Ml 50 Units/5 Ml Syringe) 50 units IV UD PRN PRN Reason: PICC Line Heparin Flush Sodium Chloride () 250 mls @ 15 mls/hr IV .[id number] PRN PRN Reason: Saline Flush Sodium Chloride () 250 mls @ 15 mls/hr IV .[id number] PRN PRN Reason: Additional IVPB Infusion Remdesivir (Investigational) (100 mg/ Sodium Chloride) 250 mls @ 125 mls/hr IV DAILY [facility]; Protocol Stop: 09/14/20 11:59 Last Infusion: 09/13/20 13:26 Dose: Infused Documented by: Amiodarone HCl 360 mg/ (Dextrose) 200 mls @ 16.667 mls/hr CONT INF .Q12H GELA Stop: 09/14/20 16:29 Last Admin: 09/13/20 23:42 Dose: 0.5 mg/min, 16.7 mls/hr Documented by: Insulin Human Lispro (Insulin Lispro 100 Unit/Ml Insuln.Pen) 0 unit SC ACHS [facility]; Protocol Last Admin: 09/13/20 21:23 Dose: 5 units Documented by: Sodium Chloride (0.9% Saline Lock 10 Ml Syringe) 10 - 40 ml IV UD PRN PRN Reason: SALINE FLUSH Last Admin: 09/11/20 08:46 Dose: 20 ml Documented by: Sodium Chloride (0.9% Saline Lock 10 Ml Syringe) 10 - 40 ml IV UD PRN PRN Reason: Open End PICC Flush Sodium Chloride (0.9 % Nacl (Sterile) Posiflush 10 Ml) 10 - 40 ml IV UD PRN PRN Reason: Port access or dressing change STROKE Vital Signs/Narrative: Vital Signs Temp Pulse Resp BP Pulse Ox 09/14/20 07:17 58 L 09/14/20 07:00 54 L 17 117/97 H 93 09/14/20 06:00 59 L 20 H 127/77 H 91 09/14/20 05:00 63 25 H 124/71 H 91 09/14/20 04:00 97 F L 56 L 22 H 102/52 L 93 Medical Necessity - Tobacco Use Smoking Status: Never smoker Assessment/Plan All Active Problems COVID-19 (Acute) Acute respiratory failure with hypoxia (Acute) Afib (Acute) Afib (Acute) Abnormal cardiac enzyme level (Acute) # Acute hypoxic respiratory failure due to COVID 19 pneumonia Now on 4 L of oxygen. Received remdesivir and convalescent plasma and is on IV Decadron. Pulmonology and infectious diseases on board. Titrate oxygen to maintain saturation above 90%. # Covid 19 pneumonia as above #Afib: patient in rate controlled afib. Per family, doesnt have a previous history of afib on carvedilol 6.25mg bid; cardiology on board now on amiodarone per cardiology 2D echo showed EF of 35%, with stage 2 diastolic dysfunction cardiology on board on therapeutic lovenox # Acute on chronic combined heart failure on IV lasix 20mg bid 2D echo showed EF of 35% with stage 2 diastolic dysfunction on carvedilol, and entresto as well as spironolactone. # CKD stage 3: Cr is 1.73. # Essential hypertension:on carvedilol # hyperlipidemia: on statin. # Ischemic cardiomyopathy: On aspirin and carvedilol DVT prophylaxis: therapeutic dose of lovenox Inpatient E&M: [id number] [facility] Hosp L3
[2020-09-14] MEDS: Insulin Lispro 100 UNIT/ML INSULN.PEN SC ×4 (08:32→22:33)
[2020-09-14] MEDS: Aspirin 81 MG TAB.CHEW PO (08:35)
[2020-09-14] MEDS: dexAMETHasone 10 MG/ML Vial 6 MG IV (08:35)
[2020-09-14] MEDS: Carvedilol 3.125 MG TABLET PO ×2 (08:35→22:35)
[2020-09-14] MEDS: 0.9% Saline Lock 10 ML Syringe IV ×2 (08:37→11:11)
[2020-09-14 09:05] LABS: Bedside Glucose 336 mg/dL (70-110)
[2020-09-14 11:51] LABS: Bedside Glucose 404 mg/dL (70-110)
[2020-09-14] MEDS: Amiodarone 360 MG in Dextrose 5% Viaflo Bag 192.8 ML 16.7 MG CONT INF (13:46)
--- NOTE | 2020-09-14 14:03 | CASEMGMT ---
Addendum entered by Alee Whittaker 09/14/20 14:14: SW did attempt to explain to patient's daughter Dalia that none of the local nursing homes are accepting positive COVID patients. The nursing homes have requested that patients have 2 negative tests before they would accept them. However, she was not receptive to this information and was focused on wanting more information about how patient is doing today. Alee BENEDICT Original Note: SW called patient's daughter, Dalia to answer her questions regarding alf placement. She said they decided not to go that route and they want to bring her home. She said it is too hard on them and her mom to not be able to see anyone. SW told her that if she would go to a alf she would be in quarantine for 14 days with no visitors. She said that would be too hard on patient. She said she did not get much of an update today from the nurse. She asked SW about how patient was doing medically. SW explained to her SW is not able to relay medical information as that is not within RADHA's scope of practice. SW offered to call ICU and ask RN to call her back. She said she did not give her helpful information before. SW offered to see if the doctor could call her and she said the doctor called her yesterday. She asked what else SW needed. RADHA told her SW was just calling her as the RN JACEK said she had questions about alf placement. She said they do not want patient to go to a alf now. SW told her SW will pass along the message to ICU that she would like more detailed updates. RADHA spoke with RN Dominik READ and let her know about family's change in plans. RADHA also spoke with smelter chargerAmor and informed him of patient's daughter's concerns. Alee BENEDICT
--- NOTE | 2020-09-14 14:36 | PCM.PN.ID ---
Patient Problems: Active and Suspected Problems COVID-19 (Acute) Acute respiratory failure with hypoxia (Acute) Afib (Acute) Abnormal cardiac enzyme level (Acute) Subjective: Feeling better, no fever, still some cough - Physical Exam Vitals/I&O's: Vital Signs Temp Pulse Resp BP Pulse Ox 96.7 F L 68 22 H 105/61 90 09/14/20 14:00 09/14/20 14:00 09/14/20 14:00 09/14/20 14:00 09/14/20 14:00 Oxygen Flow Rate (L/min) 4 Oxygen Delivery Method Nasal Cannula Weight: 102.8 kg Body Mass Index (BMI) 41.8 Intake and Output for Last 24 Hours 09/12/20 09/13/20 09/14/20 23:59 23:59 23:59 Intake Total 1595 / 1595 1220 / 1220 860 / 860 Output Total 1015 / 1015 475 / 575 425 / 425 Balance 580 / 580 745 / 645 435 / 435 General: Alert, Cooperative, No apparent distress Lungs: Clear to auscultation, Normal air movement Cardiovascular: Regular rate, Regular Rhythm Abdomen: Soft, Non Tender, Non-Distended Skin: No rashes Laboratory Results 09/13/20 17:17: POC Glucose 270 H 09/13/20 21:20: POC Glucose 441 H 09/14/20 04:20: WBC 10.9, RBC 4.25, Hgb 13.0, Hct 40.1, MCV 94.4, MCH 30.6, MCHC 32.4, RDW Std Deviation 50.8 H, RDW Coeff of Raul 14.6, Plt Count 270, MPV 12.4 H 09/14/20 04:20: Sodium 132 L, Potassium 3.9, Chloride 100, Carbon Dioxide 20.0 L, Anion Gap 12, BUN 78 H, Creatinine 1.73 H, Estim Creat Clear Calc 18.80, Est GFR (MDRD) Af Amer 36 L, Est GFR (MDRD) Non-Af 30 L, BUN/Creatinine Ratio 45.1 H, Glucose 381 H, Calcium 8.2 L, Total Bilirubin 0.20, AST 19, ALT 24, Alkaline Phosphatase 53, Total Protein 5.8 L, Albumin 2.1 L, Globulin 3.7, Albumin/Globulin Ratio 0.6 L 09/14/20 08:31: POC Glucose 336 H 09/14/20 11:10: POC Glucose 404 H Current Medications Albuterol Sulfate (Albuterol Ih 8.5 Gm (Proair) Inhaler (200 Puffs)) 2 puff INHALATION Q4H PRN PRN PRN Reason: Shortness of breath, wheezing Aspirin (Aspirin 81 Mg Tab.Chew) 81 mg PO DAILY@1000 [facility] Last Admin: 09/14/20 08:35 Dose: 81 mg Documented by: Carvedilol (Carvedilol 3.125 Mg Tablet) 3.125 mg PO BID [facility] Last Admin: 09/14/20 08:35 Dose: 3.125 mg Documented by: Dexamethasone Sodium Phosphate (Dexamethasone 10 Mg/Ml Vial) 6 mg IV DAILY [facility] Last Admin: 09/14/20 08:35 Dose: 6 mg Documented by: Enoxaparin Sodium (Enoxaparin 100 Mg/Ml Syringe) 100 mg SC Q12@0600,1800 [facility] Last Admin: 09/14/20 05:51 Dose: 100 mg Documented by: Heparin Sodium (Beef Lung) (Heparin Pf Lock 10 Units/Ml 50 Units/5 Ml Syringe) 50 units IV UD PRN PRN Reason: PICC Line Heparin Flush Sodium Chloride () 250 mls @ 15 mls/hr IV .[id number] PRN PRN Reason: Saline Flush Sodium Chloride () 250 mls @ 15 mls/hr IV .[id number] PRN PRN Reason: Additional IVPB Infusion Amiodarone HCl 360 mg/ (Dextrose) 200 mls @ 16.667 mls/hr CONT INF .Q12H [facility] Stop: 09/14/20 16:29 Last Admin: 09/14/20 13:46 Dose: 0.5 mg/min, 16.7 mls/hr Documented by: Insulin Human Lispro (Insulin Lispro 100 Unit/Ml Insuln.Pen) 0 unit SC [facility]; Protocol Last Admin: 09/14/20 11:20 Dose: 5 units Documented by: Sodium Chloride (0.9% Saline Lock 10 Ml Syringe) 10 - 40 ml IV UD PRN PRN Reason: SALINE FLUSH Last Admin: 09/14/20 11:11 Dose: 10 ml Documented by: Sodium Chloride (0.9% Saline Lock 10 Ml Syringe) 10 - 40 ml IV UD PRN PRN Reason: Open End PICC Flush Sodium Chloride (0.9 % Nacl (Sterile) Posiflush 10 Ml) 10 - 40 ml IV UD PRN PRN Reason: Port access or dressing change Medical Necessity - Tobacco Use Smoking Status: Never smoker Route of nutrition/ use of supplements: [] Nutritional Intake: [] IV Site: [] Gandhi Catheter: [] - Assessment/Plan Antibiotics: [] Assessment/Plan: [] Active and Suspected Problems COVID-19 (Acute) Acute respiratory failure with hypoxia (Acute) Covid with acute resp failure with hypoxia and SANKET - reviewed [place] records, cr went up from 1.19 to 1.5 with iv lasix. Cont dex, remdesivir. Received plasma. Ok for d/c home with o2 as needed per primary team. No need for further steroids at discharge. Isolate for 14 days total from start of symptoms. Will follow
[2020-09-14 16:45] LABS: Bedside Glucose 449 mg/dL (70-110)
--- NOTE | 2020-09-14 17:15 | PN.CARD_ITS ---
Subjectve: The patient appears to be awake and alert. Objective: Vital Signs Temp Pulse Resp BP Pulse Ox 97.1 F L 59 L 22 H 107/63 93 09/14/20 16:00 09/14/20 16:00 09/14/20 16:00 09/14/20 16:00 09/14/20 16:00 Oxygen Flow Rate (L/min) 4 Oxygen Delivery Method Nasal Cannula Weight: 226 lb 10.163 oz Body Mass Index (BMI) 41.8 Intake and Output for Last 24 Hours 09/12/20 09/13/20 09/14/20 23:59 23:59 23:59 Intake Total 1595 / 1595 1220 / 1220 860 / 860 Output Total 1015 / 1015 475 / 575 425 / 425 Balance 580 / 580 745 / 645 435 / 435 The physical exam is taken from the [facility] pulmonology/critical care medicine examination. 09/14/20 04:20: WBC 10.9, RBC 4.25, Hgb 13.0, Hct 40.1, MCV 94.4, MCH 30.6, MCHC 32.4, Plt Count 270, MPV 12.4 H 09/14/20 04:20: Sodium 132 L, Potassium 3.9, Chloride 100, Carbon Dioxide 20.0 L , Anion Gap 12, BUN 78 H, Creatinine 1.73 H, Est GFR (MDRD) Af Amer 36 L, Est GFR (MDRD) Non-Af 30 L, BUN/Creatinine Ratio 45.1 H, Glucose 381 H, Calcium 8.2 L, Total Bilirubin 0.20 Rhythm:Atrial fibrillation Medical Necessity - Tobacco Use Smoking Status: Never smoker Assessment/Plan 1. Atrial fibrillation The etiology of the atrial fibrillation may be multifactorial. This could be related to a combination of her cardiovascular disease, her ongoing pneumonitis, superimposed upon her age, etc. At the present time she will need to continue rate control therapy with adjustment as needed. It may not be unreasonable as this may be paroxysmal to attempt antiarrhythmic therapy. She is being transitioned from IV amiodarone to oral amiodarone therapy. She will need to be considered for eventual change from her Lovenox therapy to oral systemic anticoagulant therapy. 2. Abnormal cardiac enzymes She does have abnormal troponin I levels. This may be a type II event secondary to supply demand mismatch from her ongoing noncardiovascular issues superimposed on her cardiovascular disease. At the moment she will continue medical management. There are no immediate plans for further invasive evaluation or care at this time. 3. CAD status post status post CABG The patient has a history of CAD with revascularization therapy with both PCI and CABG. The details are unknown. At the present time the patient will continue to be monitored. She will co ntinue medical management as best as possible. 4. Ischemic mediated cardiomyopathy The patient has been reported as having an underlying ischemic mediated cardiomyopathy with diminished LV systolic function. The patient will need to continue medical therapy as she is able based on her ongoing clinical conditions and her vital signs (episodes of hypotension) and renal insufficiency-all taken into consideration. 5. CHF: Acute on chronic systolic There were concerns patient may be having acute on chronic systolic CHF. At the moment she will continue to be monitored and followed. She can receive additional diuretic therapy as needed to assist with her underlying cardiovascular/pulmonary status. She would need to have close monitoring of her vital signs and renal function during this time. 6. Renal insufficiency Her creatinine level is elevated. Again this will need to be monitored. Her medications will need to be adjusted as needed. 7. Obesity The patient is unfortunately obese. This does have to be taken into consideration with her overall evaluation and care. 8. COVID-19 positive She does have findings compatible with and a laboratory study compatible with COVID-19 positivity. She is undergoing evaluation care by pulmonology/critical care medicine and infectious disease evaluation. This note was generated using a voice recognition system and there may be i ncorrect words, spelling or punctuation that were not noted when reviewing the office note prior to saving.
[2020-09-14] MEDS: Amiodarone 200 MG Tablet PO (22:35)
[2020-09-14 23:15] LABS: Bedside Glucose 378 mg/dL (70-110)
[2020-09-15] VITALS (31 sets, daily range): BP systolic 90–130; BP diastolic 57–82; PULSE 53–71; RESP 12–28; TEMP 35.8–36.6; O2SAT 88–96
[2020-09-15 04:55] LABS: Hematocrit 39.9 % (37-47); Mean Corp Hgb Conc 35.1 g/dL (32-36); Mean Corpuscular Hgb 31.8 pg (27.0-32.0); Mean Corpuscular Volume 90.7 fL (81-99); Mean Platelet Vol. 12.1 fl (6.2-12.0); Platelet Count 313 K/mm3 (150-450); RBC Distribution Width CV 14.1 % (11.6-14.6); RBC Distribution Width SD 47.3 fl (35.1-43.9); White Blood Count 14.8 K/mm3 (4.4-11.0)
[2020-09-15 05:12] LABS: ALB/GLOB Ratio 0.6 RATIO (0.9-2.4); AST(SGOT) 29 U/L (15-37); Alanine Aminotransfer ALT/SGPT 25 U/L (13-56); Albumin, Serum 2.1 g/dL (3.2-5.0); Alkaline Phosphatase 59 U/L (45-117); Anion Gap 6 (5-15); BUN 74 mg/dL (7-18); BUN/Creat Ratio 48.4 RATIO (10-20); Calcium,Total 8.9 mg/dL (8.5-10.1); Chloride 103 mmol/L (98-107); Creatinine, Serum 1.53 mg/dL (0.55-1.02); EST Glomerular Filtration Rate 34 mL/min (>60); Est Glom Filt Rate - Afr Amer 42 mL/min (>60); Estimated Creatinine Clearance 21.26 ml/min; Globulin 3.6 g/dL (2.2-4.2); Glucose 341 mg/dL (74-106); Potassium 4.4 mmol/L (3.5-5.1); Protein, Total 5.7 g/dL (6.4-8.2); Sodium Level 133 mmol/L (136-145)
--- NOTE | 2020-09-15 06:00 | PN_ITS ---
Subjective: The patient was seen and examined at the bedside this morning. Events from the last 24 hours have been reviewed. The patient is currently afebrile, hemodynamically stable and maintaining appropriate oxygen saturations on 4 L/min via nasal cannula. Creatinine has improved this morning to 1.53. The patient is currently documented to be overall net +1.6 L for the hospital admission. Objective: The patient's most recent lab work, culture data and imaging studies have all been personally reviewed. Surface echocardiogram from August 2020 revealed normal LV with an ejection fraction of 35%. There was also note of stage II diastolic dysfunction. General: Alert, No apparent distress HEENT: Atraumatic Oral: Moist Mucosa, No Gingival or Mucosal Lesions/ Ulcerations Neck: Supple, No Nodes, Trachea Midline Lungs: Diminished Cardiovascular: Normal S1, Bradycardic, Irregular Rate Abdomen: Bowel Sounds Present, Soft, Non Tender, Obese Extremities: No clubbing, No cyanosis, No edema Skin: No breakdown Musculoskeletal: No Tenderness to Palpation of Joints or Extremities Lymphatic: No Cervical, Supraclavicular, or Inguinal Adenopathy Neurological: Cranial nerves II-XII grossly intact, Neuro grossly intact Psych/Mental Status: Normal Affect, Appropriate Vital Signs Temp Pulse Resp BP Pulse Ox 97.2 F L 62 22 H 108/74 93 09/15/20 02:00 09/15/20 05:00 09/15/20 05:00 09/15/20 05:00 09/15/20 05:00 Oxygen Flow Rate (L/min) 4 Oxygen Delivery Method Nasal Cannula Weight: 226 lb 10.163 oz Body Mass Index (BMI) 41.8 Intake and Output for Last 24 Hours 09/13/20 09/14/20 09/15/20 23:59 23:59 23:59 Intake Total 1220 / 1220 1601.69 / 1601.69 Output Total 475 / 575 975 / 975 Balance 745 / 645 626.69 / 626.69 Labs (Last 48 Hours) 09/13/20 09/13/20 09/13/20 10:46 17:17 21:20 WBC RBC Hgb Hct MCV MCH MCHC RDW Std Deviation RDW Coeff of Raul Plt Count MPV Sodium Potassium Chloride Carbon Dioxide Anion Gap BUN Creatinine Estim Creat Clear Calc Est GFR (MDRD) Af Amer Est GFR (MDRD) Non-Af BUN/Creatinine Ratio Glucose Calcium Total Bilirubin AST ALT Alkaline Phosphatase Total Protein Albumin Globulin Albumin/Globulin Ratio POC Glucose 250 H 270 H 441 H 09/14/20 09/14/20 09/14/20 04:20 04:20 08:31 WBC 10.9 RBC 4.25 Hgb 13.0 Hct 40.1 MCV 94.4 MCH 30.6 MCHC 32.4 RDW Std Deviation 50.8 H RDW Coeff of Raul 14.6 Plt Count 270 MPV 12.4 H Sodium 132 L Potassium 3.9 Chloride 100 Carbon Dioxide 20.0 L Anion Gap 12 BUN 78 H Creatinine 1.73 H Estim Creat Clear Calc 18.80 Est GFR (MDRD) Af Amer 36 L Est GFR (MDRD) Non-Af 30 L BUN/Creatinine Ratio 45.1 H Glucose 381 H Calcium 8.2 L Total Bilirubin 0.20 AST 19 ALT 24 Alkaline Phosphatase 53 Total Protein 5.8 L Albumin 2.1 L Globulin 3.7 Albumin/Globulin Ratio 0.6 L POC Glucose 336 H 09/14/20 09/14/20 09/14/20 11:10 16:18 22:32 WBC RBC Hgb Hct MCV MCH MCHC RDW Std Deviation RDW Coeff of Rual Plt Count MPV Sodium Potassium Chloride Carbon Dioxide Anion Gap BUN Creatinine Estim Creat Clear Calc Est GFR (MDRD) Af Amer Est GFR (MDRD) Non-Af BUN/Creatinine Ratio Glucose Calcium Total Bilirubin AST ALT Alkaline Phosphatase Total Protein Albumin Globulin Albumin/Globulin Ratio POC Glucose 404 H 449 H 378 H 09/15/20 09/15/20 04:15 04:15 WBC 14.8 H RBC 4.40 Hgb 14.0 Hct 39.9 MCV 90.7 MCH 31.8 MCHC 35.1 D RDW Std Deviation 47.3 H RDW Coeff of Raul 14.1 Plt Count 313 MPV 12.1 H Sodium 133 L Potassium 4.4 Chloride 103 Carbon Dioxide 24.0 Anion Gap 6 BUN 74 H Creatinine 1.53 H Estim Creat Clear Calc 21.26 Est GFR (MDRD) Af Amer 42 L Est GFR (MDRD) Non-Af 34 L BUN/Creatinine Ratio 48.4 H Glucose 341 H Calcium 8.9 Total Bilirubin 0.30 AST 29 ALT 25 Alkaline Phosphatase 59 Total Protein 5.7 L Albumin 2.1 L Globulin 3.6 Albumin/Globulin Ratio 0.6 L POC Glucose Clinical Impression(s) from Imaging Studies Chest X-Ray 09/12/20 05:25 IMPRESSION: 1. Multilobar pulmonary infiltrates that could suggest pneumonia or pulmonary edema. Imaging follow-up recommended to ensure resolution. Electronically Signed: Jean-Pierre Young MD ([place]) at 9:04 EDT , Service support , Chest X-Ray 09/13/20 20:30 IMPRESSION: Adequate PICC tip position.. at 2144 Reported and signed by: Raffy Gray MD Electronically Signed: Raffy Gray MD at 21:43 EDT Tel , Service support , Medical Necessity - Tobacco Use Smoking Status: Never smoker Assessment/Plan All Active Problems COVID-19 (Acute) Acute respiratory failure with hypoxia (Acute) Afib (Acute) Afib (Acute) Abnormal cardiac enzyme level (Acute) RECOMMENDATIONS: 1. Continue Decadron to complete a 10-day treatment course. 2. Continue rate/rhythm control strategy per cardiology recommendations. 3. Continue to wean supplemental oxygen to maintain saturations at or above 90%. 4. Continue therapeutic Lovenox. 5. Encourage incentive spirometer use and mobilize patient as tolerated. IMPRESSIONS: 1. Acute hypoxemic respiratory failure secondary to Covid pneumonia and CHF exacerbation Improved. Plan to continue current supportive measures. The patient has already received convalescent plasma and has completed a treatment course of remdesivir. Plan to continue therapeutic Lovenox and Decadron to complete a 10- day course. Continue to wean supplemental oxygen to maintain saturations at or above 90%. Encourage incentive spirometer use and mobilize patient as tolerated. 2. Coronary artery disease status post CABG/history of congestive heart failure/new onset atrial fibrillation Surface echocardiogram did reveal combined systolic and diastolic heart failure with an ejection fraction of 35%. Although the patient was previously being diuresed, her Lasix was placed on hold due to tenuous hemodynamics. Will defer management of her atrial fibrillation to cardiology. If the patient remains hemodynamically stable, gentle diuresis can be resumed today. 3. Acute on chronic kidney disease/morbid obesity/hypertension/hyperlipidemia Complicates care, management, recovery and prognosis. Continue to encourage incentive spirometer use and mobilize patient as tolerated. This note was generated with [employer] dictation software. It may contain incorrect words, spelling, and punctuation that were not noted in checking the note before signing. Inpatient E&M: 41039 Subs Hosp L2
[2020-09-15] MEDS: Insulin Lispro 100 UNIT/ML INSULN.PEN SC ×4 (07:02→22:14)
[2020-09-15] MEDS: Enoxaparin 100 MG/ML Syringe SC ×2 (07:03→17:00)
[2020-09-15] MEDS: 0.9% Saline Lock 10 ML Syringe IV ×2 (07:05→08:36)
[2020-09-15 07:16] LABS: Bedside Glucose 338 mg/dL (70-110)
[2020-09-15] MEDS: Aspirin 81 MG TAB.CHEW PO (08:30)
[2020-09-15] MEDS: Carvedilol 3.125 MG TABLET PO ×2 (08:30→22:14)
[2020-09-15] MEDS: Amiodarone 200 MG Tablet PO (08:31)
[2020-09-15] MEDS: dexAMETHasone 10 MG/ML Vial 6 MG IV (08:31)
--- NOTE | 2020-09-15 09:45 | PN.CARD_ITS ---
Subjectve: The patient continues to be followed remotely to avoid additional personnel exposure and use of PPE. Based upon conversations with the [facility] ICU staff the patient appears to be remaining stable. Objective: Vital Signs Temp Pulse Resp BP Pulse Ox 96.5 F L 71 26 H 117/81 H 92 09/15/20 08:00 09/15/20 08:00 09/15/20 08:00 09/15/20 08:00 09/15/20 08:00 Oxygen Flow Rate (L/min) 4 Oxygen Delivery Method Nasal Cannula Weight: 226 lb 10.163 oz Body Mass Index (BMI) 41.8 Intake and Output for Last 24 Hours 09/13/20 09/14/20 09/15/20 23:59 23:59 23:59 Intake Total 1220 / 1220 1601.69 / 1601.69 Output Total 475 / 575 975 / 975 200 / 200 Balance 745 / 645 626.69 / 626.69 -200 / -200 The examination is per Dr. Sorensen of the [facility] pulmonology and critical care staff. 09/15/20 04:15: WBC 14.8 H, RBC 4.40, Hgb 14.0, Hct 39.9, MCV 90.7, MCH 31.8, MCHC 35.1 D, Plt Count 313, MPV 12.1 H 09/15/20 04:15: Sodium 133 L, Potassium 4.4, Chloride 103, Carbon Dioxide 24.0, Anion Gap 6, BUN 74 H, Creatinine 1.53 H, Est GFR (MDRD) Af Amer 42 L, Est GFR (MDRD) Non-Af 34 L, BUN/Creatinine Ratio 48.4 H, Glucose 341 H, Calcium 8.9, Total Bilirubin 0.30 Rhythm: Atrial fibrillation Medical Necessity - Tobacco Use Smoking Status: Never smoker Assessment/Plan 1. Atrial fibrillation The etiology of the atrial fibrillation may be multifactorial. This could be related to a combination of her cardiovascular disease, her ongoing pneumonitis, superimposed upon her age, etc. At the present time she will need to continue rate control therapy with adjustment as needed. She has been altered to oral amiodarone therapy with the hopes of maintaining rate and potentially regaining sinus rhythm. Her dose will be adjusted. She will need to be considered for eventual change from her Lovenox therapy to oral systemic anticoagulant therapy. 2. Abnormal cardiac enzymes She does have abnormal troponin I levels. This may be a type II event secondary to supply demand mismatch from her ongoing noncardiovascular issues superimposed on her cardiovascular disease. At the moment she will continue medical management. There are no immediate plans for further invasive evaluation or care at this time. 3. CAD status post status post CABG The patient has a history of CAD with revascularization therapy with both PCI and CABG. The details are unknown. At the present time the patient will continue to be monitored. She will continue medical management as best as possible. 4. Ischemic mediated cardiomyopathy The patient has been reported as having an underlying ischemic mediated cardiomyopathy with diminished LV systolic function. The patient will need to continue medical therapy as she is able based on her ongoing clinical conditions and her vital signs (episodes of hypotension) and renal insufficiency-all taken into consideration. 5. CHF: Acute on chronic systolic There were concerns patient may be having acute on chronic systolic CHF. At the moment she will continue to be monitored and followed. She can receive additional diuretic therapy as needed to assist with her underlying cardiovascular/pulmonary status. She would need to have close monitoring of her vital signs and renal function during this time. 6. Renal insufficiency Her creatinine level is elevated. Again this will need to be monitored. Her medications will need to be adjusted as needed. 7. Obesity The patient is unfortunately obese. This does have to be taken into consideration with her overall evaluation and care. 8. COVID-19 positive She does have findings compatible with and a laboratory study compatible with COVID-19 positivity. She is undergoing evaluation care by pulmonology/critical care medicine and infectious disease evaluation. Comment: The patient's case was discussed and reviewed with Dr. Sorensen. This note was generated using a voice recognition system and there may be incorrect words, spelling or punctuation that were not noted when reviewing the office note prior to saving.
--- NOTE | 2020-09-15 15:11 | PCM.PN.ID ---
Patient Problems: Active and Suspected Problems COVID-19 (Acute) Acute respiratory failure with hypoxia (Acute) Afib (Acute) Abnormal cardiac enzyme level (Acute) Subjective: Feeling better, still dyspnea and cough. No fever - Physical Exam Vitals/I&O's: Vital Signs Temp Pulse Resp BP Pulse Ox 96.5 F L 60 20 H 111/68 91 09/15/20 12:00 09/15/20 14:00 09/15/20 14:00 09/15/20 14:00 09/15/20 14:00 Oxygen Flow Rate (L/min) 4 Oxygen Delivery Method Nasal Cannula Weight: 102.8 kg Body Mass Index (BMI) 41.8 Intake and Output for Last 24 Hours 09/13/20 09/14/20 09/15/20 23:59 23:59 23:59 Intake Total 1220 / 1220 1601.69 / 1601.69 500 / 500 Output Total 475 / 575 975 / 975 400 / 400 Balance 745 / 645 626.69 / 626.69 100 / 100 General: Alert, Cooperative, No apparent distress Lungs: Clear to auscultation Cardiovascular: Regular rate, Regular Rhythm Abdomen: Soft, Non Tender, Non-Distended Skin: No rashes Laboratory Results 09/14/20 16:18: POC Glucose 449 H 09/14/20 22:32: POC Glucose 378 H 09/15/20 04:15: WBC 14.8 H, RBC 4.40, Hgb 14.0, Hct 39.9, MCV 90.7, MCH 31.8, MCHC 35.1 D, RDW Std Deviation 47.3 H, RDW Coeff of Raul 14.1, Plt Count 313, MPV 12.1 H 09/15/20 04:15: Sodium 133 L, Potassium 4.4, Chloride 103, Carbon Dioxide 24.0, Anion Gap 6, BUN 74 H, Creatinine 1.53 H, Estim Creat Clear Calc 21.26, Est GFR (MDRD) Af Amer 42 L, Est GFR (MDRD) Non-Af 34 L, BUN/Creatinine Ratio 48.4 H, Glucose 341 H, Calcium 8.9, Total Bilirubin 0.30, AST 29, ALT 25, Alkaline Phosphatase 59, Total Protein 5.7 L, Albumin 2.1 L, Globulin 3.6, Albumin/Globulin Ratio 0.6 L 09/15/20 07:01: POC Glucose 338 H Current Medications Albuterol Sulfate (Albuterol Ih 8.5 Gm (Proair) Inhaler (200 Puffs)) 2 puff INHALATION Q4H PRN PRN PRN Reason: Shortness of breath, wheezing Amiodarone HCl (Amiodarone 200 Mg Tablet) 200 mg PO DAILY [facility] Aspirin (Aspirin 81 Mg Tab.Chew) 81 mg PO DAILY@1000 [facility] Last Admin: 09/15/20 08:30 Dose: 81 mg Documented by: Carvedilol (Carvedilol 3.125 Mg Tablet) 3.125 mg PO BID [facility] Last Admin: 09/15/20 08:30 Dose: 3.125 mg Documented by: Dexamethasone Sodium Phosphate (Dexamethasone 10 Mg/Ml Vial) 6 mg IV DAILY [facility] Last Admin: 09/15/20 08:31 Dose: 6 mg Documented by: Enoxaparin Sodium (Enoxaparin 100 Mg/Ml Syringe) 100 mg SC Q12@0600,1800 [facility] Last Admin: 09/15/20 07:03 Dose: 100 mg Documented by: Heparin Sodium (Beef Lung) (Heparin Pf Lock 10 Units/Ml 50 Units/5 Ml Syringe) 50 units IV UD PRN PRN Reason: PICC Line Heparin Flush Sodium Chloride () 250 mls @ 15 mls/hr IV .[id number] PRN PRN Reason: Saline Flush Sodium Chloride () 250 mls @ 15 mls/hr IV .[id number] PRN PRN Reason: Additional IVPB Infusion Insulin Glargine (Insulin Glargine 100 Units/Ml Pen) 10 units SC DAILY [facility] Last Admin: 09/15/20 12:09 Dose: 10 u Documented by: Insulin Human Lispro (Insulin Lispro 100 Unit/Ml Insuln.Pen) 0 unit SC [facility]; Protocol Last Admin: 09/15/20 12:08 Dose: 4 units Documented by: Sodium Chloride (0.9% Saline Lock 10 Ml Syringe) 10 - 40 ml IV UD PRN PRN Reason: SALINE FLUSH Last Admin: 09/15/20 08:36 Dose: 30 ml Documented by: Sodium Chloride (0.9% Saline Lock 10 Ml Syringe) 10 - 40 ml IV UD PRN PRN Reason: Open End PICC Flush Sodium Chloride (0.9 % Nacl (Sterile) Posiflush 10 Ml) 10 - 40 ml IV UD PRN PRN Reason: Port access or dressing change Medical Necessity - Tobacco Use Smoking Status: Never smoker Route of nutrition/ use of supplements: [] Nutritional Intake: [] IV Site: [] Gandhi Catheter: [] - Assessment/Plan Antibiotics: [] Assessment/Plan: [] Active and Suspected Problems COVID-19 (Acute) Acute respiratory failure with hypoxia (Acute) Covid with acute resp failure with hypoxia and SANKET - reviewed [place] records, cr went up from 1.19 to 1.5 with iv lasix. Cont dex, remdesivir. Received plasma. Ok for d/c home with o2 as needed per primary team. No need for further steroids at discharge. Isolate for 14 days total from start of symptoms. Will follow
--- NOTE | 2020-09-15 15:30 | CASEMGMT ---
Addendum entered by Pipe Hathaway 09/15/20 23:43: Dalia requests that clinical staff rn contact her at time of discharge and review discharge instructions with her over the phone. STOVE CLEANER, made aware and states will place this in the handoff to communicate this to oncoming shifts. Addendum entered by Pipe Hathaway 09/15/20 23:41: Also discussed Home O2 with Dalia and she is aware pt may need oxygen @ discharge. She denies DME company preference. Original Note: BRITNEY READ NOTE: PT/OT has worked with pt and spoke with this RN. Per therapy, pt is improving each day-she only ambulated 5 feet, but was with min assist of 2 and could have ambulated further, but fatigued easily. Additional therapy recommended. Call placed to pt's daughter, Dalia. Dalia made aware of the above. Dalia confirms she and her father do want pt to go to a SNF and they plan to take her home and take care of her. She states someone will be with her 18/06 and they will have other family that can help. Discussion w/Dalia about HHC. She states, I spoke with my dad about that and at this point he does not want HHC. She states She has had that before in the past, and states they want to give pt some time to recover from COVID before they have therapy work with her, as she feels this would be too much for her at this time. She inquired, if they decide later that they want it, if that would still be an option. BRITNEY READ told her, if this happens, to talk with pt's PCP to have them set HHC up. She voices understanding. Dalia voices concern re: being able to get pt out of the car and into her home when arrives home and inquired about having transport to be able to assist with this. BRITNEY READ made Dalia aware an ambulance/transport service would be able to provide this help. Dalia states she spoke with her family about this and they do not have a preference of a company and asked if [facility] could make these arrangements for pt @ discharge and they (family) are willing/able to pay for it, stating, Money is not an issue. Dalia inquired about getting pt a hospital. She was made aware of [facility]. She states she knows Shree Troncoso and that she will call them to see if a hospital bed is available. She was also provided with [facility] contact information to purchase a hospital bed if they would like to. Nicole KEENANN RN CM
--- NOTE | 2020-09-15 15:53 | PCM.PN.HOSP ---
Patient Problems: Active and Suspected Problems COVID-19 (Acute) Acute respiratory failure with hypoxia (Acute) Afib (Acute) Abnormal cardiac enzyme level (Acute) Subjective: Patient seen and examined. She says she felt better today. She feels her breathing is improving. Cough is also getting better. Review of stems otherwise negative. Vitals/I&O's: Vital Signs Temp Pulse Resp BP Pulse Ox 96.5 F L 60 20 H 111/68 90 09/15/20 12:00 09/15/20 14:00 09/15/20 14:00 09/15/20 14:00 09/15/20 14:51 Oxygen Flow Rate (L/min) 4 Oxygen Delivery Method Nasal Cannula Weight: 226 lb 10.163 oz Body Mass Index (BMI) 41.8 Intake and Output for Last 24 Hours 09/13/20 09/14/20 09/15/20 23:59 23:59 23:59 Intake Total 1220 / 1220 1601.69 / 1601.69 500 / 500 Output Total 475 / 575 975 / 975 400 / 400 Balance 745 / 645 626.69 / 626.69 100 / 100 General: Alert, Oriented x3, Cooperative, Lethargic HEENT: Atraumatic, PERRLA, EOMI, Normocephalic Oral: Dry Mucosa Neck: Supple, No JVD, Negative Carotid Bruits Lungs: - - Decreased breath sounds bibasilar. No wheezes or crackles. On 4 L of oxygen by nasal cannula. Cardiovascular: afib, bradycardic Abdomen: Bowel Sounds Present, Soft, Non Tender, Non-Distended, No Hepato-splenomegaly Extremities: No clubbing, No cyanosis, No edema, Capillary Refill Less than 3 Seconds Skin: No rashes, No breakdown Musculoskeletal: No Tenderness to Palpation of Joints or Extremities Lymphatic: No Cervical, Supraclavicular, or Inguinal Adenopathy Neurological: Cranial nerves II-XII grossly intact, Neuro grossly intact, Motor Exam 5/5 strength throughout Psych/Mental Status: Normal Affect, Appropriate, Alert and oriented to time, place, person, mood and affect Laboratory Results 09/14/20 16:18: POC Glucose 449 H 09/14/20 22:32: POC Glucose 378 H 09/15/20 04:15: WBC 14.8 H, RBC 4.40, Hgb 14.0, Hct 39.9, MCV 90.7, MCH 31.8, MCHC 35.1 D, RDW Std Deviation 47.3 H, RDW Coeff of Raul 14.1, Plt Count 313, MPV 12.1 H 09/15/20 04:15: Sodium 133 L, Potassium 4.4, Chloride 103, Carbon Dioxide 24.0, Anion Gap 6, BUN 74 H, Creatinine 1.53 H, Estim Creat Clear Calc 21.26, Est GFR (MDRD) Af Amer 42 L, Est GFR (MDRD) Non-Af 34 L, BUN/Creatinine Ratio 48.4 H, Glucose 341 H, Calcium 8.9, Total Bilirubin 0.30, AST 29, ALT 25, Alkaline Phosphatase 59, Total Protein 5.7 L, Albumin 2.1 L, Globulin 3.6, Albumin/Globulin Ratio 0.6 L 09/15/20 07:01: POC Glucose 338 H Diagnostic Data Chest X-Ray 09/13/20 20:30 IMPRESSION: Adequate PICC tip position.. at 2144 Reported and signed by: Raffy Gray MD Electronically Signed: Raffy Gray MD at 21:43 EDT Tel , Service support , Current Medications Albuterol Sulfate (Albuterol Ih 8.5 Gm (Proair) Inhaler (200 Puffs)) 2 puff INHALATION Q4H PRN PRN PRN Reason: Shortness of breath, wheezing Amiodarone HCl (Amiodarone 200 Mg Tablet) 200 mg PO DAILY [facility] Aspirin (Aspirin 81 Mg Tab.Chew) 81 mg PO DAILY@1000 [facility] Last Admin: 09/15/20 08:30 Dose: 81 mg Documented by: Carvedilol (Carvedilol 3.125 Mg Tablet) 3.125 mg PO BID [facility] Last Admin: 09/15/20 08:30 Dose: 3.125 mg Documented by: Dexamethasone Sodium Phosphate (Dexamethasone 10 Mg/Ml Vial) 6 mg IV DAILY [facility] Last Admin: 09/15/20 08:31 Dose: 6 mg Documented by: Enoxaparin Sodium (Enoxaparin 100 Mg/Ml Syringe) 100 mg SC Q12@0600,1800 [facility] Last Admin: 09/15/20 07:03 Dose: 100 mg Documented by: Heparin Sodium (Beef Lung) (Heparin Pf Lock 10 Units/Ml 50 Units/5 Ml Syringe) 50 units IV UD PRN PRN Reason: PICC Line Heparin Flush Sodium Chloride () 250 mls @ 15 mls/hr IV .[id number] PRN PRN Reason: Saline Flush Sodium Chloride () 250 mls @ 15 mls/hr IV .[id number] PRN PRN Reason: Additional IVPB Infusion Insulin Glargine (Insulin Glargine 100 Units/Ml Pen) 10 units SC DAILY [facility] Last Admin: 09/15/20 12:09 Dose: 10 u Documented by: Insulin Human Lispro (Insulin Lispro 100 Unit/Ml Insuln.Pen) 0 unit SC ACHS [facility]; Protocol Last Admin: 09/15/20 12:08 Dose: 4 units Documented by: Sodium Chloride (0.9% Saline Lock 10 Ml Syringe) 10 - 40 ml IV UD PRN PRN Reason: SALINE FLUSH Last Admin: 09/15/20 08:36 Dose: 30 ml Documented by: Sodium Chloride (0.9% Saline Lock 10 Ml Syringe) 10 - 40 ml IV UD PRN PRN Reason: Open End PICC Flush Sodium Chloride (0.9 % Nacl (Sterile) Posiflush 10 Ml) 10 - 40 ml IV UD PRN PRN Reason: Port access or dressing change STROKE Vital Signs/Narrative: Vital Signs Temp Pulse Resp BP BP Pulse Ox 09/15/20 14:51 90 09/15/20 14:00 60 20 H 111/68 91 09/15/20 13:00 66 23 H 114/61 92 09/15/20 12:01 95 09/15/20 12:00 96.5 F L 60 27 H 114/68 95 Medical Necessity - Tobacco Use Smoking Status: Never smoker Assessment/Plan All Active Problems COVID-19 (Acute) Acute respiratory failure with hypoxia (Acute) Afib (Acute) Afib (Acute) Abnormal cardiac enzyme level (Acute) # Acute hypoxic respiratory failure due to COVID 19 pneumonia Now on 4 L of oxygen. Received remdesivir and convalescent plasma and is on IV Decadron. Pulmonology and infectious diseases on board. Titrate oxygen to maintain saturation above 90%. # Covid 19 pneumonia as above #Afib: patient in rate controlled afib. on carvedilol 6.25mg bid amiodarone 200mg daily. now on amiodarone per cardiology 2D echo showed EF of 35%, with stage 2 diastolic dysfunction cardiology on board on therapeutic lovenox # Acute on chronic combined heart failure on IV lasix 20mg bid 2D echo showed EF of 35% with stage 2 diastolic dysfunction on carvedilol, and entresto as well as spironolactone. # CKD stage 3: Cr is 1.73. # Essential hypertension:on carvedilol # hyperlipidemia: on statin. # Ischemic cardiomyopathy: On aspirin and carvedilol DVT prophylaxis: therapeutic dose of lovenox Disposition: awaiting placement, per request of her family. Inpatient E&M: 99019 Subs Hosp L2
[2020-09-15 16:11] LABS: Bedside Glucose 361 mg/dL (70-110)
[2020-09-15 16:31] LABS: Bedside Glucose 422 mg/dL (70-110)
[2020-09-15 22:35] LABS: Bedside Glucose 409 mg/dL (70-110)
[2020-09-16] VITALS (15 sets, daily range): BP systolic 104–146; BP diastolic 53–113; PULSE 58–74; RESP 18–20; TEMP 36.1–36.5; O2SAT 91–95
[2020-09-16 06:14] LABS: Absolute Lymphocyte Count 1.66 X10^3/uL (0.83-4.51); Absolute Neutrophil Count 14.3 X10^3/uL (2.0-7.7); Basophil# 0.07 X10^3/uL; Basophil% 0.4 % (0-1); Hematocrit 45.2 % (37-47); Hemoglobin 14.2 g/dL (12.0-15.0); Lymphocyte # 1.66 X10^3/ul (4.0); Lymphocyte % 9.8 % (19-41); Mean Corp Hgb Conc 31.4 g/dL (32-36); Mean Corpuscular Hgb 30.7 pg (27.0-32.0); Mean Corpuscular Volume 97.8 fL (81-99); Mean Platelet Vol. 11.9 fl (6.2-12.0); Monocyte# 0.71 X10^3/uL; Monocyte% 4.2 % (0-10); NRBC Flagged by Analyzer 0 % (0-5); Neutrophil # 14.31 X10^3/uL (2.7-7.7); Neutrophil % 84.2 % (47-70); Platelet Count 303 K/mm3 (150-450); RBC Distribution Width CV 14.7 % (11.6-14.6); RBC Distribution Width SD 53.1 fl (35.1-43.9); Red Blood Count 4.62 M/mm3 (4.2-5.4)
[2020-09-16] MEDS: Insulin Lispro 100 UNIT/ML INSULN.PEN SC ×3 (07:07→16:37)
[2020-09-16] MEDS: Enoxaparin 100 MG/ML Syringe SC ×2 (07:10→16:39)
[2020-09-16 07:40] LABS: Bedside Glucose 408 mg/dL (70-110)
[2020-09-16 07:54] LABS: Anion Gap 8 (5-15); BUN 71 mg/dL (7-18); BUN/Creat Ratio 45.8 RATIO (10-20); Calcium,Total 9.4 mg/dL (8.5-10.1); Chloride 103 mmol/L (98-107); Creatinine, Serum 1.55 mg/dL (0.55-1.02); EST Glomerular Filtration Rate 34 mL/min (>60); Est Glom Filt Rate - Afr Amer 41 mL/min (>60); Estimated Creatinine Clearance 20.99 ml/min; Glucose 386 mg/dL (74-106); Potassium 4.2 mmol/L (3.5-5.1); Sodium Level 134 mmol/L (136-145)
[2020-09-16] MEDS: dexAMETHasone 10 MG/ML Vial 6 MG IV (10:26)
[2020-09-16] MEDS: Carvedilol 3.125 MG TABLET PO ×2 (10:28→20:16)
[2020-09-16] MEDS: Amiodarone 200 MG Tablet PO (10:28)
[2020-09-16] MEDS: Aspirin 81 MG TAB.CHEW PO (10:28)
[2020-09-16 12:55] LABS: Bedside Glucose 378 mg/dL (70-110)
--- NOTE | 2020-09-16 13:55 | PCM.PN.ID ---
Patient Problems: Active and Suspected Problems COVID-19 (Acute) Acute respiratory failure with hypoxia (Acute) Afib (Acute) Abnormal cardiac enzyme level (Acute) Subjective: Feeling about the same, still SOB, no fever - Physical Exam Vitals/I&O's: Vital Signs Temp Pulse Resp BP Pulse Ox 97.6 F L 61 18 136/67 H 94 09/16/20 10:35 09/16/20 11:00 09/16/20 10:35 09/16/20 10:35 09/16/20 10:35 Oxygen Flow Rate (L/min) 5 Oxygen Delivery Method Nasal Cannula Weight: 102.8 kg Body Mass Index (BMI) 41.8 Intake and Output for Last 24 Hours 09/14/20 09/15/20 09/16/20 23:59 23:59 23:59 Intake Total 1601.69 / 1601.69 500 / 500 360 / 360 Output Total 975 / 975 400 / 500 600 / 600 Balance 626.69 / 626.69 100 / 0 -240 / -240 General: Alert, Cooperative, No apparent distress Lungs: Diminished Cardiovascular: Regular rate, Regular Rhythm Abdomen: Soft, Non Tender, Non-Distended, Obese Skin: No rashes Laboratory Results 09/15/20 11:58: POC Glucose 361 H 09/15/20 16:08: POC Glucose 422 H 09/15/20 22:12: POC Glucose 409 H 09/16/20 05:54: WBC 17.0 H, RBC 4.62, Hgb 14.2, Hct 45.2, MCV 97.8 D, MCH 30.7, MCHC 31.4 L D, RDW Std Deviation 53.1 H, RDW Coeff of Raul 14.7 H, Plt Count 303, MPV 11.9, Immature Gran % (Auto) 1.400 H, Neut % (Auto) 84.2 H, Lymph % (Auto) 9.8 L, [place] % (Auto) 4.2, Eos % (Auto) 0.0, Baso % (Auto) 0.4, Absolute Neuts (auto) 14.3 H, Absolute Lymphs (auto) 1.66, Nucleated RBC % 0 09/16/20 05:54: Sodium Cancelled, Potassium Cancelled, Chloride Cancelled, Carbon Dioxide Cancelled, Anion Gap Cancelled, BUN Cancelled, Creatinine Cancelled, Estim Creat Clear Calc Cancelled, Est GFR (MDRD) Af Amer Cancelled, Est GFR (MDRD) Non-Af Cancelled, BUN/Creatinine Ratio Cancelled, Glucose Cancelled, Calcium Cancelled 09/16/20 07:06: POC Glucose 408 H 09/16/20 07:14: Sodium 134 L, Potassium 4.2, Chloride 103, Carbon Dioxide 23.0, Anion Gap 8, BUN 71 H, Creatinine 1.55 H, Estim Creat Clear Calc 20.99, Est GFR (MDRD) Af Amer 41 L, Est GFR (MDRD) Non-Af 34 L, BUN/Creatinine Ratio 45.8 H, Glucose 386 H, Calcium 9.4 09/16/20 11:46: POC Glucose 378 H Current Medications Albuterol Sulfate (Albuterol Ih 8.5 Gm (Proair) Inhaler (200 Puffs)) 2 puff INHALATION Q4H PRN PRN PRN Reason: Shortness of breath, wheezing Amiodarone HCl (Amiodarone 200 Mg Tablet) 200 mg PO DAILY [facility] Last Admin: 09/16/20 10:28 Dose: 200 mg Documented by: Aspirin (Aspirin 81 Mg Tab.Chew) 81 mg PO DAILY@1000 [facility] Last Admin: 09/16/20 10:28 Dose: 81 mg Documented by: Carvedilol (Carvedilol 3.125 Mg Tablet) 3.125 mg PO BID [facility] Last Admin: 09/16/20 10:28 Dose: 3.125 mg Documented by: Dexamethasone Sodium Phosphate (Dexamethasone 10 Mg/Ml Vial) 6 mg IV DAILY [facility] Last Admin: 09/16/20 10:26 Dose: 6 mg Documented by: Enoxaparin Sodium (Enoxaparin 100 Mg/Ml Syringe) 100 mg SC Q12@0600,1800 [facility] Last Admin: 09/16/20 07:10 Dose: 100 mg Documented by: Heparin Sodium (Beef Lung) (Heparin Pf Lock 10 Units/Ml 50 Units/5 Ml Syringe) 50 units IV UD PRN PRN Reason: PICC Line Heparin Flush Sodium Chloride () 250 mls @ 15 mls/hr IV .[id number] PRN PRN Reason: Saline Flush Sodium Chloride () 250 mls @ 15 mls/hr IV .[id number] PRN PRN Reason: Additional IVPB Infusion Insulin Glargine (Insulin Glargine 100 Units/Ml Pen) 10 units SC DAILY [facility] Last Admin: 09/16/20 10:30 Dose: 10 u Documented by: Insulin Human Lispro (Insulin Lispro 100 Unit/Ml Insuln.Pen) 0 unit SC ACHS [facility]; Protocol Last Admin: 09/16/20 11:48 Dose: 4 units Documented by: Sodium Chloride (0.9% Saline Lock 10 Ml Syringe) 10 - 40 ml IV UD PRN PRN Reason: SALINE FLUSH Last Admin: 09/15/20 08:36 Dose: 30 ml Documented by: Sodium Chloride (0.9% Saline Lock 10 Ml Syringe) 10 - 40 ml IV UD PRN PRN Reason: Open End PICC Flush Sodium Chloride (0.9 % Nacl (Sterile) Posiflush 10 Ml) 10 - 40 ml IV UD PRN PRN Reason: Port access or dressing change Medical Necessity - Tobacco Use Smoking Status: Never smoker Route of nutrition/ use of supplements: [] Nutritional Intake: [] IV Site: [] Gandhi Catheter: [] - Assessment/Plan Antibiotics: [] Assessment/Plan: [] Active and Suspected Problems COVID-19 (Acute) Acute respiratory failure with hypoxia (Acute) Covid with acute resp failure with hypoxia and SANKET - Cont dex, completed remdesivir. Received plasma. Ok for d/c home with o2 as needed per primary team. No need for further steroids at discharge. Isolate for 14 days total from start of symptoms. Will follow
--- NOTE | 2020-09-16 16:04 | PCM.PN.HOSP ---
Patient Problems: Active and Suspected Problems COVID-19 (Acute) Acute respiratory failure with hypoxia (Acute) Afib (Acute) Abnormal cardiac enzyme level (Acute) Subjective: Patient seen and examined. She had no complaints today and stated she wanted to go home. She felt her breathing was improving. However patient is still on 5 L of oxygen. He has remained hemodynamically stable otherwise. Vitals/I&O's: Vital Signs Temp Pulse Resp BP Pulse Ox 97.6 F L 74 18 136/67 H 94 09/16/20 10:35 09/16/20 15:00 09/16/20 10:35 09/16/20 10:35 09/16/20 13:56 Oxygen Flow Rate (L/min) 5 Oxygen Delivery Method Nasal Cannula Weight: 226 lb 10.163 oz Body Mass Index (BMI) 41.8 Intake and Output for Last 24 Hours 09/14/20 09/15/20 09/16/20 23:59 23:59 23:59 Intake Total 1601.69 / 1601.69 500 / 500 360 / 360 Output Total 975 / 975 400 / 500 600 / 600 Balance 626.69 / 626.69 100 / 0 -240 / -240 General: Alert, Oriented x3, Cooperative, Lethargic HEENT: Atraumatic, PERRLA, EOMI, Normocephalic Oral: Dry Mucosa Neck: Supple, No JVD, Negative Carotid Bruits Lungs: - - Decreased breath sounds bibasilar. No wheezes or crackles. On 5 L of oxygen by nasal cannula. Cardiovascular: afib, bradycardic Abdomen: Bowel Sounds Present, Soft, Non Tender, Non-Distended, No Hepato-splenomegaly Extremities: No clubbing, No cyanosis, No edema, Capillary Refill Less than 3 Seconds Skin: No rashes, No breakdown Musculoskeletal: No Tenderness to Palpation of Joints or Extremities Lymphatic: No Cervical, Supraclavicular, or Inguinal Adenopathy Neurological: Cranial nerves II-XII grossly intact, Neuro grossly intact, Motor Exam 5/5 strength throughout Psych/Mental Status: Normal Affect, Appropriate, Alert and oriented to time, place, person, mood and affect Laboratory Results 09/15/20 11:58: POC Glucose 361 H 09/15/20 16:08: POC Glucose 422 H 09/15/20 22:12: POC Glucose 409 H 09/16/20 05:54: WBC 17.0 H, RBC 4.62, Hgb 14.2, Hct 45.2, MCV 97.8 D, MCH 30.7, MCHC 31.4 L D, RDW Std Deviation 53.1 H, RDW Coeff of Raul 14.7 H, Plt Count 303, MPV 11.9, Immature Gran % (Auto) 1.400 H, Neut % (Auto) 84.2 H, Lymph % (Auto) 9.8 L, [place] % (Auto) 4.2, Eos % (Auto) 0.0, Baso % (Auto) 0.4, Absolute Neuts (auto) 14.3 H, Absolute Lymphs (auto) 1.66, Nucleated RBC % 0 09/16/20 05:54: Sodium Cancelled, Potassium Cancelled, Chloride Cancelled, Carbon Dioxide Cancelled, Anion Gap Cancelled, BUN Cancelled, Creatinine Cancelled, Estim Creat Clear Calc Cancelled, Est GFR (MDRD) Af Amer Cancelled, Est GFR (MDRD) Non-Af Cancelled, BUN/Creatinine Ratio Cancelled, Glucose Cancelled, Calcium Cancelled 09/16/20 07:06: POC Glucose 408 H 09/16/20 07:14: Sodium 134 L, Potassium 4.2, Chloride 103, Carbon Dioxide 23.0, Anion Gap 8, BUN 71 H, Creatinine 1.55 H, Estim Creat Clear Calc 20.99, Est GFR (MDRD) Af Amer 41 L, Est GFR (MDRD) Non-Af 34 L, BUN/Creatinine Ratio 45.8 H, Glucose 386 H, Calcium 9.4 09/16/20 11:46: POC Glucose 378 H Diagnostic Data Chest X-Ray 09/13/20 20:30 IMPRESSION: Adequate PICC tip position.. at 2144 Reported and signed by: Raffy Gray MD Electronically Signed: Raffy Gray MD at 21:43 EDT Tel , Service support , Current Medications Albuterol Sulfate (Albuterol Ih 8.5 Gm (Proair) Inhaler (200 Puffs)) 2 puff INHALATION Q4H PRN PRN PRN Reason: Shortness of breath, wheezing Amiodarone HCl (Amiodarone 200 Mg Tablet) 200 mg PO DAILY [facility] Last Admin: 09/16/20 10:28 Dose: 200 mg Documented by: Aspirin (Aspirin 81 Mg Tab.Chew) 81 mg PO DAILY@1000 [facility] Last Admin: 09/16/20 10:28 Dose: 81 mg Documented by: Carvedilol (Carvedilol 3.125 Mg Tablet) 3.125 mg PO BID [facility] Last Admin: 09/16/20 10:28 Dose: 3.125 mg Documented by: Dexamethasone (Dexamethasone 4 Mg Tablet) 6 mg PO DAILY@0800 [facility] Enoxaparin Sodium (Enoxaparin 100 Mg/Ml Syringe) 100 mg SC Q12@0600,1800 [facility] Last Admin: 09/16/20 07:10 Dose: 100 mg Documented by: Heparin Sodium (Beef Lung) (Heparin Pf Lock 10 Units/Ml 50 Units/5 Ml Syringe) 50 units IV UD PRN PRN Reason: PICC Line Heparin Flush Sodium Chloride () 250 mls @ 15 mls/hr IV .[id number] PRN PRN Reason: Saline Flush Sodium Chloride () 250 mls @ 15 mls/hr IV .[id number] PRN PRN Reason: Additional IVPB Infusion Insulin Glargine (Insulin Glargine 100 Units/Ml Pen) 10 units SC DAILY [facility] Last Admin: 09/16/20 10:30 Dose: 10 u Documented by: Insulin Human Lispro (Insulin Lispro 100 Unit/Ml Insuln.Pen) 0 unit [facility]; Protocol Last Admin: 09/16/20 11:48 Dose: 4 units Documented by: Sodium Chloride (0.9% Saline Lock 10 Ml Syringe) 10 - 40 ml IV UD PRN PRN Reason: SALINE FLUSH Last Admin: 09/15/20 08:36 Dose: 30 ml Documented by: Sodium Chloride (0.9% Saline Lock 10 Ml Syringe) 10 - 40 ml IV UD PRN PRN Reason: Open End PICC Flush Sodium Chloride (0.9 % Nacl (Sterile) Posiflush 10 Ml) 10 - 40 ml IV UD PRN PRN Reason: Port access or dressing change STROKE Vital Signs/Narrative: Vital Signs Pulse Pulse Ox 09/16/20 15:00 74 09/16/20 13:56 94 Medical Necessity - Tobacco Use Smoking Status: Never smoker Assessment/Plan All Active Problems COVID-19 (Acute) Acute respiratory failure with hypoxia (Acute) Afib (Acute) Afib (Acute) Abnormal cardiac enzyme level (Acute) # Acute hypoxic respiratory failure due to COVID 19 pneumonia On 5 L of oxygen today Received remdesivir and convalescent plasma and is on IV Decadron. Pulmonology and infectious diseases on board. Titrate oxygen to maintain saturation above 90%. goal is to wean down on oxygen to the lowest level possible, pending discharge tomorrow. # Covid 19 pneumonia as above #Afib: patient in rate controlled afib. on carvedilol 6.25mg bid and amiodarone 200mg daily. now on amiodarone per cardiology 2D echo showed EF of 35%, with stage 2 diastolic dysfunction cardiology on board on therapeutic lovenox; will transition to eliquis # Acute on chronic combined heart failure on IV lasix 20mg bid 2D echo showed EF of 35% with stage 2 diastolic dysfunction on carvedilol; lasix entresto and spironolactone dc'd per cardiology # CKD stage 3: Cr is 1.73. # Essential hypertension:on carvedilol # hyperlipidemia: on statin. # Ischemic cardiomyopathy: On aspirin and carvedilol DVT prophylaxis: on eliquis Disposition:to be discharged home tomorrow. Inpatient E&M: 71699 Subs Hosp L2
[2020-09-16 17:30] LABS: Bedside Glucose 380 mg/dL (70-110)
[2020-09-16] MEDS: Insulin Lispro 100 UNIT/ML INSULN.PEN 20 UNIT SC (20:36)
[2020-09-16 20:46] LABS: Bedside Glucose 465 mg/dL (70-110)
[2020-09-17] VITALS (16 sets, daily range): BP systolic 111–143; BP diastolic 64–112; PULSE 53–79; RESP 12–20; TEMP 36.3–36.6; O2SAT 87–95
[2020-09-17 02:31] LABS: Bedside Glucose 256 mg/dL (70-110)
[2020-09-17] MEDS: Insulin Lispro 100 UNIT/ML INSULN.PEN SC ×4 (06:39→22:12)
[2020-09-17] MEDS: Enoxaparin 100 MG/ML Syringe SC (06:40)
[2020-09-17 06:50] LABS: Bedside Glucose 250 mg/dL (70-110)
[2020-09-17 07:40] LABS: Absolute Lymphocyte Count 1.71 X10^3/uL (0.83-4.51); Absolute Neutrophil Count 15.7 X10^3/uL (2.0-7.7); Basophil# 0.04 X10^3/uL; Basophil% 0.2 % (0-1); Hematocrit 42.6 % (37-47); Hemoglobin 14.2 g/dL (12.0-15.0); Lymphocyte # 1.71 X10^3/ul (4.0); Lymphocyte % 9.2 % (19-41); Mean Corp Hgb Conc 33.3 g/dL (32-36); Mean Corpuscular Hgb 31.1 pg (27.0-32.0); Mean Corpuscular Volume 93.2 fL (81-99); Mean Platelet Vol. 11.8 fl (6.2-12.0); Monocyte# 0.72 X10^3/uL; Monocyte% 3.9 % (0-10); NRBC Flagged by Analyzer 0 % (0-5); Neutrophil # 15.71 X10^3/uL (2.7-7.7); Neutrophil % 84.2 % (47-70); Platelet Count 352 K/mm3 (150-450); RBC Distribution Width CV 14.6 % (11.6-14.6); Red Blood Count 4.57 M/mm3 (4.2-5.4); White Blood Count 18.6 K/mm3 (4.4-11.0)
[2020-09-17 08:07] LABS: Anion Gap 5 (5-15); BUN 64 mg/dL (7-18); BUN/Creat Ratio 47.8 RATIO (10-20); Calcium,Total 9.7 mg/dL (8.5-10.1); Chloride 108 mmol/L (98-107); Creatinine, Serum 1.34 mg/dL (0.55-1.02); EST Glomerular Filtration Rate 40 mL/min (>60); Est Glom Filt Rate - Afr Amer 48 mL/min (>60); Estimated Creatinine Clearance 24.28 ml/min; Glucose 251 mg/dL (74-106); Potassium 4.8 mmol/L (3.5-5.1); Sodium Level 139 mmol/L (136-145)
[2020-09-17] MEDS: Amiodarone 200 MG Tablet PO ×2 (09:25→22:11)
[2020-09-17] MEDS: Aspirin 81 MG TAB.CHEW PO (09:25)
[2020-09-17] MEDS: dexAMETHasone 4 MG Tablet 6 MG PO (09:25)
[2020-09-17] MEDS: Carvedilol 3.125 MG TABLET PO (09:25)
--- NOTE | 2020-09-17 11:23 | PCM.PN.PUL ---
Patient Problems: Active and Suspected Problems COVID-19 (Acute) Acute respiratory failure with hypoxia (Acute) Afib (Acute) Abnormal cardiac enzyme level (Acute) Subjective: The patient was seen and examined at the bedside this morning. Events from the last 24 hours have been reviewed. The patient is currently afebrile, hemodynamically stable and maintaining appropriate oxygen saturations on 2 L/min via nasal cannula. Objective: The patient's most recent lab work, culture data and imaging studies have all been personally reviewed. Surface echocardiogram from August 2020 revealed normal LV with an ejection fraction of 35%. There was also note of stage II diastolic dysfunction. - Physical Exam Vitals/I&O's: Vital Signs Temp Pulse Resp BP Pulse Ox 97.4 F L 64 18 143/112 H 93 09/17/20 08:19 09/17/20 08:19 09/17/20 08:19 09/17/20 08:19 09/17/20 09:35 Oxygen Flow Rate (L/min) [At 2 REST on Room Air] Oxygen Flow Rate (L/min) 2 Oxygen Delivery Method Nasal Cannula Weight: 226 lb 10.163 oz Body Mass Index (BMI) 41.8 Intake and Output for Last 24 Hours 09/15/20 09/16/20 09/17/20 23:59 23:59 23:59 Intake Total 500 / 500 600 / 600 Output Total 400 / 500 600 / 600 300 / 300 Balance 100 / 0 0 / 0 -300 / -300 General: Alert, Cooperative, No apparent distress HEENT: Atraumatic, Normocephalic Oral: No Gingival or Mucosal Lesions/ Ulcerations Neck: Supple, No Nodes, Trachea Midline Lungs: No rhonchi, No wheeze, No rales, Diminished Cardiovascular: Normal S1, Normal S2, Irregular Rate Abdomen: Bowel Sounds Present, Soft, Non Tender Extremities: No clubbing, No cyanosis, No edema Skin: No breakdown Musculoskeletal: No Tenderness to Palpation of Joints or Extremities Lymphatic: No Cervical, Supraclavicular, or Inguinal Adenopathy Neurological: Neuro grossly intact Psych/Mental Status: Normal Affect, Appropriate Labs (Last 48 Hours) 09/15/20 09/15/20 09/15/20 11:58 16:08 22:12 WBC RBC Hgb Hct MCV MCH MCHC RDW Std Deviation RDW Coeff of Raul Plt Count MPV Immature Gran % (Auto) Neut % (Auto) Lymph % (Auto) Barrow % (Auto) Eos % (Auto) Baso % (Auto) Absolute Neuts (auto) Absolute Lymphs (auto) Nucleated RBC % Sodium Potassium Chloride Carbon Dioxide Anion Gap BUN Creatinine Estim Creat Clear Calc Est GFR (MDRD) Af Amer Est GFR (MDRD) Non-Af BUN/Creatinine Ratio Glucose Calcium POC Glucose 361 H 422 H 409 H 09/16/20 09/16/20 09/16/20 05:54 05:54 07:06 WBC 17.0 H RBC 4.62 Hgb 14.2 Hct 45.2 MCV 97.8 D MCH 30.7 MCHC 31.4 L D RDW Std Deviation 53.1 H RDW Coeff of Raul 14.7 H Plt Count 303 MPV 11.9 Immature Gran % (Auto) 1.400 H Neut % (Auto) 84.2 H Lymph % (Auto) 9.8 L Barrow % (Auto) 4.2 Eos % (Auto) 0.0 Baso % (Auto) 0.4 Absolute Neuts (auto) 14.3 H Absolute Lymphs (auto) 1.66 Nucleated RBC % 0 Sodium Cancelled Potassium Cancelled Chloride Cancelled Carbon Dioxide Cancelled Anion Gap Cancelled BUN Cancelled Creatinine Cancelled Estim Creat Clear Calc Cancelled Est GFR (MDRD) Af Amer Cancelled Est GFR (MDRD) Non-Af Cancelled BUN/Creatinine Ratio Cancelled Glucose Cancelled Calcium Cancelled POC Glucose 408 H 09/16/20 09/16/20 09/16/20 07:14 11:46 16:36 WBC RBC Hgb Hct MCV MCH MCHC RDW Std Deviation RDW Coeff of Raul Plt Count MPV Immature Gran % (Auto) Neut % (Auto) Lymph % (Auto) Barrow % (Auto) Eos % (Auto) Baso % (Auto) Absolute Neuts (auto) Absolute Lymphs (auto) Nucleated RBC % Sodium 134 L Potassium 4.2 Chloride 103 Carbon Dioxide 23.0 Anion Gap 8 BUN 71 H Creatinine 1.55 H Estim Creat Clear Calc 20.99 Est GFR (MDRD) Af Amer 41 L Est GFR (MDRD) Non-Af 34 L BUN/Creatinine Ratio 45.8 H Glucose 386 H Calcium 9.4 POC Glucose 378 H 380 H 09/16/20 09/17/20 09/17/20 20:21 02:17 06:38 WBC RBC Hgb Hct MCV MCH MCHC RDW Std Deviation RDW Coeff of Raul Plt Count MPV Immature Gran % (Auto) Neut % (Auto) Lymph % (Auto) Barrow % (Auto) Eos % (Auto) Baso % (Auto) Absolute Neuts (auto) Absolute Lymphs (auto) Nucleated RBC % Sodium Potassium Chloride Carbon Dioxide Anion Gap BUN Creatinine Estim Creat Clear Calc Est GFR (MDRD) Af Amer Est GFR (MDRD) Non-Af BUN/Creatinine Ratio Glucose Calcium POC Glucose 465 H* 256 H 250 H 09/17/20 09/17/20 07:18 07:18 WBC 18.6 H RBC 4.57 Hgb 14.2 Hct 42.6 MCV 93.2 MCH 31.1 MCHC 33.3 D RDW Std Deviation 50.0 H RDW Coeff of Raul 14.6 Plt Count 352 MPV 11.8 Immature Gran % (Auto) 2.500 H Neut % (Auto) 84.2 H Lymph % (Auto) 9.2 L Barrow % (Auto) 3.9 Eos % (Auto) 0.0 Baso % (Auto) 0.2 Absolute Neuts (auto) 15.7 H Absolute Lymphs (auto) 1.71 Nucleated RBC % 0 Sodium 139 Potassium 4.8 Chloride 108 H Carbon Dioxide 26.0 Anion Gap 5 BUN 64 H Creatinine 1.34 H Estim Creat Clear Calc 24.28 Est GFR (MDRD) Af Amer 48 L Est GFR (MDRD) Non-Af 40 L BUN/Creatinine Ratio 47.8 H Glucose 251 H Calcium 9.7 POC Glucose Clinical Impression(s) from Imaging Studies Chest X-Ray 09/12/20 05:25 IMPRESSION: 1. Multilobar pulmonary infiltrates that could suggest pneumonia or pulmonary edema. Imaging follow-up recommended to ensure resolution. Electronically Signed: Jean-Pierre Young MD (Brooks) at 9:04 EDT , Service support , Chest X-Ray 09/13/20 20:30 IMPRESSION: Adequate PICC tip position.. at 2144 Reported and signed by: Raffy Gray MD Electronically Signed: Raffy Gray MD at 21:43 EDT Tel , Service support , Current Medications Albuterol Sulfate (Albuterol Ih 8.5 Gm (Proair) Inhaler (200 Puffs)) 2 puff INHALATION Q4H PRN PRN PRN Reason: Shortness of breath, wheezing Amiodarone HCl (Amiodarone 200 Mg Tablet) [address] [facility] Last Admin: 09/17/20 09:25 Dose: 200 mg Documented by: Aspirin (Aspirin 81 Mg Tab.Chew) 81 mg PO DAILY@1000 [facility] Last Admin: 09/17/20 09:25 Dose: 81 mg Documented by: Carvedilol (Carvedilol 3.125 Mg Tablet) 3.[address] [facility] Last Admin: 09/17/20 09:25 Dose: 3.125 mg Documented by: Dexamethasone (Dexamethasone 4 Mg Tablet) 6 mg PO DAILY@0800 [facility] Last Admin: 09/17/20 09:25 Dose: 6 mg Documented by: Enoxaparin Sodium (Enoxaparin 100 Mg/Ml Syringe) 100 mg SC Q12@0600,1800 [facility] Last Admin: 09/17/20 06:40 Dose: 100 mg Documented by: Heparin Sodium (Beef Lung) (Heparin Pf Lock 10 Units/Ml 50 Units/5 Ml Syringe) 50 units IV UD PRN PRN Reason: PICC Line Heparin Flush Sodium Chloride () 250 mls @ 15 mls/hr IV .[id number] PRN PRN Reason: Saline Flush Sodium Chloride () 250 mls @ 15 mls/hr IV .[id number] PRN PRN Reason: Additional IVPB Infusion Insulin Glargine (Insulin Glargine 100 Units/Ml Pen) [address] [facility] Last Admin: 09/17/20 09:27 Dose: 10 u Documented by: Insulin Human Lispro (Insulin Lispro 100 Unit/Ml Insuln.Pen) [address] [facility]; Protocol Last Admin: 09/17/20 06:39 Dose: 6 units Documented by: Sodium Chloride (0.9% Saline Lock 10 Ml Syringe) 10 - 40 ml IV UD PRN PRN Reason: SALINE FLUSH Last Admin: 09/15/20 08:36 Dose: 30 ml Documented by: Sodium Chloride (0.9% Saline Lock 10 Ml Syringe) 10 - 40 ml IV UD PRN PRN Reason: Open End PICC Flush Sodium Chloride (0.9 % Nacl (Sterile) Posiflush 10 Ml) 10 - 40 ml IV UD PRN PRN Reason: Port access or dressing change Medical Necessity - Tobacco Use Smoking Status: Never smoker Assessment/Plan All Active Problems COVID-19 (Acute) Acute respiratory failure with hypoxia (Acute) Afib (Acute) Afib (Acute) Abnormal cardiac enzyme level (Acute) RECOMMENDATIONS: 1. Continue Decadron to complete a 10-day treatment course. 2. Continue rate/rhythm control strategy per cardiology recommendations. 3. Continue to wean supplemental oxygen to maintain saturations at or above 90%. 4. Continue therapeutic Lovenox. Continue anticoagulation for 2 weeks post discharge. 5. Encourage incentive spirometer use and mobilize patient as tolerated. 6. The patient is stable for discharge from my perspective. Will sign off. Please call with any additional questions. IMPRESSIONS: 1. Acute hypoxemic respiratory failure secondary to Covid pneumonia and CHF exacerbation Improved. Plan to continue current supportive measures. The patient has already received convalescent plasma and has completed a treatment course of remdesivir. Plan to continue therapeutic Lovenox and Decadron to complete a 10-day course. Continue to wean supplemental oxygen to maintain saturations at or above 90%. Encourage incentive spirometer use and mobilize patient as tolerated. 2. Coronary artery disease status post CABG/history of congestive heart failure/new onset atrial fibrillation Surface echocardiogram did reveal combined systolic and diastolic heart failure with an ejection fraction of 35%. Will defer management of her atrial fibrillation to cardiology. 3. Acute on chronic kidney disease/morbid obesity/hypertension/hyperlipidemia Complicates care, management, recovery and prognosis. Continue to encourage incentive spirometer use and mobilize patient as tolerated. This note was generated with [employer] dictation software. It may contain incorrect words, spelling, and punctuation that were not noted in checking the note before signing. Inpatient E&M: 75081 Subs Hosp L2
--- NOTE | 2020-09-17 12:02 | PCM.DC.SUM ---
Discharge Date and Diagnosis - Problem List Patient Problems: Active and Suspected Problems COVID-19 (Acute) Acute respiratory failure with hypoxia (Acute) Afib (Acute) Abnormal cardiac enzyme level (Acute) Date of Admission: 09/10/20 Date of Discharge: 09/18/20 - Primary Discharge Diagnosis Acute Problems: Active Problems COVID-19 (Acute) Acute respiratory failure with hypoxia (Acute) Afib (Acute) Abnormal cardiac enzyme level (Acute) nonsustained vtach - Secondary Discharge Diagnosis Chronic Problems: Chronic Problems Coronary artery disease (Chronic) Morbid obesity due to excess calories (Chronic) Renal insufficiency (Chronic) Systolic CHF, acute on chronic (Chronic) S/P PTCA (percutaneous transluminal coronary angioplasty) (Chronic) S/P CABG (coronary artery bypass graft) (Chronic) Cardiomyopathy (Chronic) Hospital Course and Treatment Imaging Results: Diagnostic Data Chest X-Ray 09/13/20 20:30 IMPRESSION: Adequate PICC tip position.. at 2144 Reported and signed by: Raffy Gray MD Electronically Signed: Raffy Gray MD at 21:43 EDT Tel , Service support , critical care- Dr Sorensen Infectious diseases- Dr Cervantes Cardiology- Dr Olivera Operations: None Procedures: 2-D Echocardiogram Summary of Care Provided: The patient is a 85 year old F with an extensive past medical history as outlined. She was admitted through the ED on 09/10/2020 with a complaint of weakness and cough. She was admitted directly from an outside facility on account of COVID-19 pneumonia. She had been complaining of generalized weakness and fatigue for about 3 to 4 days prior to admission and states this started after she had gas who tested positive for COVID-19. She had associated nausea and poor appetite and also had increasing shortness of breath with a dry cough. She had no fever or chills. At the outside facility, she was hypertensive and hypoxic and was started on BiPAP. Labs done showed creatinine of 4.51 with normal lactic acid and ABG showed pH of 7.34 with PO2 of 62 and PCO2 of 25. EKG showed sinus tachycardia with no acute changes and troponin was borderline at 0.048. BNP was elevated at 8756 and chest x-ray showed left lower lobe infiltrate and bilateral pulmonary vascular congestion. COVID-19 test done was positive. He was started on IV Lasix and broad-spectrum antibiotics at outside hospital and subsequently transferred to [facility] and admitted for COVID-19 pneumonia as well as acute hypoxic respiratory failure due to COVID-19 pneumonia and acute on chronic systolic heart failure. She was started on diuresis with IV Lasix. She was started on therapeutic Lovenox as well and started on IV dexamethasone. She was put on oxygen to be titrated as needed to maintain saturation above 90%. EF done showed EF of 35% and stage II diastolic dysfunction and no significant valvular heart disease. Deemed remdesivir and Decadron as well as convalescent plasma. Creatinine gradually trended down to her baseline. She was weaned off of BiPAP onto oxygen by nasal cannula. Lasix was subsequently held on account of low blood pressure. Neurology was subsequently consulted as patient developed A. fib which was poorly controlled. She required administration of amiodarone drip which was subsequently tapered off. . Patient was transferred out of the ICU to the [facility] floor. Her oxygen requirements gradually improved to where she was requiring between 4 to 5 L of oxygen. She was saturating at 87 room air and required 2 L of oxygen to be saturating at around 93%. She therefore qualified for oxygen. Hospital stay was also complicated by nonsustained 24 beat run of V. tach. Cardiology adjusted her medication and increased her amiodarone dose as well as her carvedilol dose. V. tach did not recur. She was discharged home on 09/18/2020. She was discharged home on p.o. amiodarone 200 mg 3 times daily for 1 week, then p.o. amiodarone 200 mg twice daily for 2 weeks then to continue with 200 mg daily. She was also discharged on carvedilol 6.25 mg twice daily. She was continued on her Entresto but spironolactone was discontinued on account of risk of hypotension due to the increase in her carvedilol and amiodarone dose. She is to follow-up with her primary care doctor and cardiology in 1 to 2 weeks. Patient seen and examined prior to discharge. She had no complaints and felt well. Review of symptoms otherwise negative. Labs and vitals reviewed. Home medication reviewed and reconciled. O/E; Vital Signs Temp Pulse Resp BP Pulse Ox 97.1 F L 61 20 H 132/82 H 93 09/18/20 12:29 09/18/20 12:29 09/18/20 12:29 09/18/20 12:29 09/18/20 12:29 General: Alert, Oriented x3, Cooperative, HEENT: Atraumatic, PERRLA, EOMI, Normocephalic Oral: Dry Mucosa Neck: Supple, No JVD, Negative Carotid Bruits Lungs: - - Decreased breath sounds bibasilar. No wheezes or crackles. On 2 L of oxygen by nasal cannula. Cardiovascular: afib, rate controlled Abdomen: Bowel Sounds Present, Soft, Non Tender, Non-Distended, No Hepato-splenomegaly Extremities: No clubbing, No cyanosis, No edema, Capillary Refill Less than 3 Seconds Skin: No rashes, No breakdown Musculoskeletal: No Tenderness to Palpation of Joints or Extremities Lymphatic: No Cervical, Supraclavicular, or Inguinal Adenopathy Neurological: Cranial nerves II-XII grossly intact, Neuro grossly intact, Motor Exam 5/5 strength throughout Psych/Mental Status: Normal Affect, Appropriate, Alert and oriented to time, place, person, mood and affect Plan is for dc home today with 3L of home oxygen to use of shortness of breath as needed. Patient Problems: Active and Suspected Problems COVID-19 (Acute) Acute respiratory failure with hypoxia (Acute) Afib (Acute) Abnormal cardiac enzyme level (Acute) - Physical Exam Vitals/I&O's: Vital Signs Temp Pulse Resp BP Pulse Ox 97.4 F L 64 18 143/112 H 87 09/17/20 08:19 09/17/20 08:19 09/17/20 08:19 09/17/20 08:19 09/17/20 09:35 Oxygen Flow Rate (L/min) [At 2 REST on Room Air] Oxygen Flow Rate (L/min) 2 Oxygen Delivery Method Nasal Cannula Weight: 226 lb 10.163 oz Body Mass Index (BMI) 41.8 Intake and Output for Last 24 Hours 09/15/20 09/16/20 09/17/20 23:59 23:59 23:59 Intake Total 500 / 500 600 / 600 Output Total 400 / 500 600 / 600 300 / 300 Balance 100 / 0 0 / 0 -300 / -300 Laboratory Results 09/16/20 11:46: POC Glucose 378 H 09/16/20 16:36: POC Glucose 380 H 09/16/20 20:21: POC Glucose 465 H* 09/17/20 02:17: POC Glucose 256 H 09/17/20 06:38: POC Glucose 250 H 09/17/20 07:18: WBC 18.6 H, RBC 4.57, Hgb 14.2, Hct 42.6, MCV 93.2, MCH 31.1, MCHC 33.3 D, RDW Std Deviation 50.0 H, RDW Coeff of Raul 14.6, Plt Count 352, MPV 11.8, Immature Gran % (Auto) 2.500 H, Neut % (Auto) 84.2 H, Lymph % (Auto) 9.2 L, Tripp % (Auto) 3.9, Eos % (Auto) 0.0, Baso % (Auto) 0.2, Absolute Neuts (auto) 15.7 H, Absolute Lymphs (auto) 1.71, Nucleated RBC % 0 09/17/20 07:18: Sodium 139, Potassium 4.8, Chloride 108 H, Carbon Dioxide 26.0, Anion Gap 5, BUN 64 H, Creatinine 1.34 H, Estim Creat Clear Calc 24.28, Est GFR (MDRD) Af Amer 48 L, Est GFR (MDRD) Non-Af 40 L, BUN/Creatinine Ratio 47.8 H, Glucose 251 H, Calcium 9.7 Current Medications Albuterol Sulfate (Albuterol Ih 8.5 Gm (Proair) Inhaler (200 Puffs)) 2 puff INHALATION Q4H PRN PRN PRN Reason: Shortness of breath, wheezing Amiodarone HCl (Amiodarone 200 Mg Tablet) 200 mg PO DAILY [facility] Last Admin: 09/17/20 09:25 Dose: 200 mg Documented by: Aspirin (Aspirin 81 Mg Tab.Chew) 81 mg PO DAILY@1000 [facility] Last Admin: 09/17/20 09:25 Dose: 81 mg Documented by: Carvedilol (Carvedilol 3.125 Mg Tablet) 3.125 mg PO BID [facility] Last Admin: 09/17/20 09:25 Dose: 3.125 mg Documented by: Dexamethasone (Dexamethasone 4 Mg Tablet) 6 mg PO DAILY@0800 [facility] Last Admin: 10/23/20 09:25 Dose: 6 mg Documented by: Enoxaparin Sodium (Enoxaparin 100 Mg/Ml Syringe) 100 mg SC Q12@0600,1800 [facility] Last Admin: 09/17/20 06:40 Dose: 100 mg Documented by: Heparin Sodium (Beef Lung) (Heparin Pf Lock 10 Units/Ml 50 Units/5 Ml Syringe) 50 units IV UD PRN PRN Reason: PICC Line Heparin Flush Sodium Chloride () 250 mls @ 15 mls/hr IV .[id number] PRN PRN Reason: Saline Flush Sodium Chloride () 250 mls @ 15 mls/hr IV .[id number] PRN PRN Reason: Additional IVPB Infusion Insulin Glargine (Insulin Glargine 100 Units/Ml Pen) 10 units SC DAILY [facility] Last Admin: 09/17/20 09:27 Dose: 10 u Documented by: Insulin Human Lispro (Insulin Lispro 100 Unit/Ml Insuln.Pen) 0 unit SC [facility]; Protocol Last Admin: 09/17/20 06:39 Dose: 6 units Documented by: Sodium Chloride (0.9% Saline Lock 10 Ml Syringe) 10 - 40 ml IV UD PRN PRN Reason: SALINE FLUSH Last Admin: 09/15/20 08:36 Dose: 30 ml Documented by: Sodium Chloride (0.9% Saline Lock 10 Ml Syringe) 10 - 40 ml IV UD PRN PRN Reason: Open End PICC Flush Sodium Chloride (0.9 % Nacl (Sterile) Posiflush 10 Ml) 10 - 40 ml IV UD PRN PRN Reason: Port access or dressing change Discharge Diet: Low fat/ Low Cholesterol Home Medications: Medications to take at Discharge Bumetanide 1 mg PO DAILY 09/10/20 Sacubitril/Valsartan 24/26 mg [Entresto 24 mg-26 mg Tablet] 1 tab PO BID 09/10/20 Apixaban [Eliquis] 2.5 mg PO BID #60 tab 09/17/20 Amiodarone HCl [Cordarone] 200 mg PO UD #90 tab 09/18/20 Carvedilol [Coreg (Beta Sharyn)] 6.25 mg PO BID #60 tab 09/18/20 Following Prescriptions Were Given to Patient: Amiodarone HCl [Cordarone] 200 mg PO UD #90 tab Transmission Status: Received by [facility] Carvedilol [Coreg (Beta Sharyn)] 6.25 mg PO BID #60 tab Transmission Status: Received by [facility] Apixaban [Eliquis] 2.5 mg PO BID #60 tab Transmission Status: Received by [facility] Primary Care Physician: Bryant Yan DO [Primary Care Provider] - Please follow up with your Primary Care Physician in: 1-2 weeks Please Follow Up With: Blue Olivera MD When: 2-3 weeks Patient Instructions: Using Oxygen Safely, Using Oxygen at Home, Inside the ICU (Intensive Care Unit), ED AFIB Disposition: Home Minutes spent on discharge:: 45 Patient Condition:: Stable Medical Necessity - Tobacco Use Smoking Status: Never smoker Meaningful Use Info Meaningful Use Diagnoses (Choose all that apply): CHF - CHF SALMA/ARB ordered at discharge?: Yes Documented LVEF (%): 35 Inpatient E&M: 91076 Disch Hosp
--- NOTE | 2020-09-17 12:02 | PCM.DC ---
- Discharge Diagnoses Current Active Problems: Current Active and Chronic Problems Coronary artery disease (Chronic) Morbid obesity due to excess calories (Chronic) Renal insufficiency (Chronic) COVID-19 (Acute) Systolic CHF, acute on chronic (Chronic) Acute respiratory failure with hypoxia (Acute) Afib (Acute) S/P PTCA (percutaneous transluminal coronary angioplasty) (Chronic) S/P CABG (coronary artery bypass graft) (Chronic) Cardiomyopathy (Chronic) Abnormal cardiac enzyme level (Acute) You will use the following diet at home:: Cardiac Your food should be the consistency of: Regular Your liquids should be the consistency of: Regular/Thin Discharge Activity: Return to Normal Activity Weight Bearing Status: Weight bearing as tolerated Call your doctor if you observe: Fever of 101 or Higher, Shortness of breath, Dizziness, Fainting spells, Swelling in the ankles, Chest pain, Increased palpitations (irregular heartbeat) Instructions: Inside the ICU (Intensive Care Unit), ED AFIB, Using Oxygen Safely, Using Oxygen at Home Additional Instructions: use oxygen as needed for shortness of breath Allergies/Adverse Reactions: Allergies No Known Allergies Allergy (Verified 09/10/20 17:52) Medications to take at Discharge Bumetanide 1 mg PO DAILY 09/10/20 Sacubitril/Valsartan 24/26 mg [Entresto 24 mg-26 mg Tablet] 1 tab PO BID 09/10/20 Spironolactone 0.25 tab PO DAILY 09/10/20 Amiodarone HCl [Cordarone] 200 mg PO DAILY #30 tab 09/17/20 Apixaban [Eliquis] 2.5 mg PO BID #60 tab 09/17/20 Carvedilol [Coreg (Beta Sharyn)] 3.125 mg PO BID #60 tab 09/17/20 The following prescriptions were given: Amiodarone HCl [Cordarone] 200 mg PO DAILY #30 tab Transmission Status: Pending to [facility] Carvedilol [Coreg (Beta Sharyn)] 3.125 mg PO BID #60 tab Transmission Status: Pending to [facility] Apixaban [Eliquis] 2.5 mg PO BID #60 tab Transmission Status: Pending to [facility] Primary Care Physician: Bryant Yan DO [Primary Care Provider] - Please follow up with your Primary Care Physician in: 1-2 weeks Test Results: Test results from this visit will be discussed in further detail at your follow-up appointment, if applicable. Please Follow Up With: Blue Olivera MD When: 2-3 weeks Proposed Discharge Date: 09/17/20
--- NOTE | 2020-09-17 12:22 | CASEMGMT ---
RN JACEK Note: patient is to discharge today. Call to [facility] to update and discuss transport home. Daughter is requesting ambulance transport and RN JACEK made her aware cost could be around $1000. She is agreeable to this. No steps into daughter's home where pt will be going. [address]ia [address] [place] [address] . -[facility] to [facility] and transportation is set up for 4 pm. -Script for oxygen to Dr. Austin to sign and will fax to [facility] [place]. Tammi KEENANN RN ACM
[2020-09-17 13:35] LABS: Bedside Glucose 252 mg/dL (70-110)
--- NOTE | 2020-09-17 14:18 | CASEMGMT ---
RN CM Note: portable oxygen tank is delivered and outside patient's room. Tammi KEENANN RN ACM
--- NOTE | 2020-09-17 14:41 | CASEMGMT ---
Addendum entered by Dominik Greene 09/17/20 14:48: Call to [facility] in [facility]. Sharri patrick will be applied for 30 day free trial. Tammi REMY Original Note: BRITNEY READ NOTE: Call to [facility] and updated that patient will be picked up at 4 pm. They will contact their [place] office and set up home oxygen prior to patient's dc. BRITNEY READ let them know Daughter is contact. Tammi WEINBERGM
[2020-09-17 14:57] LABS: Magnesium 2.7 mg/dL (1.6-2.6)
--- NOTE | 2020-09-17 15:08 | CASEMGMT ---
Addendum entered by Dominik Greene 09/17/20 15:16: Call to [facility]. Updated pharmacist that dc has been cancelled and patient may have medication adjustment prior to discharge. Tammi REMY Original Note: RN JACEK Note: Per nursing, patient had arrhythmia and dc will be cancelled today. Call to Nakita @ [facility] to notify discharge had been cancelled. She spoke with Dianelys at local [facility] and they will still deliver her home oxygen today. Portable tank is outside patient room. -[facility] to [facility]- cancelled dc today. Will need to reorder for transport home tomorrow. -[facility] Tammi HO RN AC
--- NOTE | 2020-09-17 15:34 | PN.ID_ITS ---
Patient Problems: Active and Suspected Problems COVID-19 (Acute) Acute respiratory failure with hypoxia (Acute) Afib (Acute) Abnormal cardiac enzyme level (Acute) Subjective: Feeling better, no fever, no nausea - Physical Exam Vitals/I&O's: Vital Signs Temp Pulse Resp BP Pulse Ox 97.4 F L 57 L 18 143/112 H 94 09/17/20 12:12 09/17/20 15:00 09/17/20 12:12 09/17/20 12:12 09/17/20 12:12 Oxygen Flow Rate (L/min) [At 2 REST on Room Air] Oxygen Flow Rate (L/min) 4 Oxygen Delivery Method Nasal Cannula Weight: 102.8 kg Body Mass Index (BMI) 41.8 Intake and Output for Last 24 Hours 09/15/20 09/16/20 09/17/20 23:59 23:59 23:59 Intake Total 500 / 500 600 / 600 360 / 360 Output Total 400 / 500 600 / 600 525 / 525 Balance 100 / 0 0 / 0 -165 / -165 General: Alert, Cooperative, No apparent distress Lungs: Clear to auscultation, Normal air movement Cardiovascular: Regular rate, Regular Rhythm Abdomen: Soft, Non Tender, Non-Distended Skin: No rashes Laboratory Results 09/16/20 16:36: POC Glucose 380 H 09/16/20 20:21: POC Glucose 465 H* 09/17/20 02:17: POC Glucose 256 H 09/17/20 06:38: POC Glucose 250 H 09/17/20 07:18: WBC 18.6 H, RBC 4.57, Hgb 14.2, Hct 42.6, MCV 93.2, MCH 31.1, MCHC 33.3 D, RDW Std Deviation 50.0 H, RDW Coeff of Raul 14.6, Plt Count 352, MPV 11.8, Immature Gran % (Auto) 2.500 H, Neut % (Auto) 84.2 H, Lymph % (Auto) 9.2 L, Ro[place] % (Auto) 3.9, Eos % (Auto) 0.0, Baso % (Auto) 0.2, Absolute Neuts (auto) 15.7 H, Absolute Lymphs (auto) 1.71, Nucleated RBC % 0 09/17/20 07:18: Sodium 139, Potassium 4.8, Chloride 108 H, Carbon Dioxide 26.0, Anion Gap 5, BUN 64 H, Creatinine 1.34 H, Estim Creat Clear Calc 24.28, Est GFR (MDRD) Af Amer 48 L, Est GFR (MDRD) Non-Af 40 L, BUN/Creatinine Ratio 47.8 H, Glucose 251 H, Calcium 9.7 09/17/20 07:18: Magnesium 2.7 H 09/17/20 12:06: POC Glucose 252 H Current Medications Albuterol Sulfate (Albuterol Ih 8.5 Gm (Proair) Inhaler (200 Puffs)) 2 puff INHALATION Q4H PRN PRN PRN Reason: Shortness of breath, wheezing Amiodarone HCl (Amiodarone 200 Mg Tablet) 200 mg PO TID [facility] Aspirin (Aspirin 81 Mg Tab.Chew) 81 mg PO DAILY@1000 [facility] Last Admin: 09/17/20 09:25 Dose: 81 mg Documented by: Carvedilol (Carvedilol 6.25 Mg Tablet) 6.25 mg PO BID [facility] Dexamethasone (Dexamethasone 4 Mg Tablet) 6 mg PO DAILY@0800 [facility] Last Admin: 09/17/20 09:25 Dose: 6 mg Documented by: Enoxaparin Sodium (Enoxaparin 100 Mg/Ml Syringe) 100 mg SC Q12@0600,1800 [facility] Last Admin: 09/17/20 06:40 Dose: 100 mg Documented by: Heparin Sodium (Beef Lung) (Heparin Pf Lock 10 Units/Ml 50 Units/5 Ml Syringe) 50 units IV UD PRN PRN Reason: PICC Line Heparin Flush Sodium Chloride () 250 mls @ 15 mls/hr IV .[id number] PRN PRN Reason: Saline Flush Sodium Chloride () 250 mls @ 15 mls/hr IV .[id number] PRN PRN Reason: Additional IVPB Infusion Insulin Glargine (Insulin Glargine 100 Units/Ml Pen) 10 units SC DAILY [facility] Last Admin: 09/17/20 09:27 Dose: 10 u Documented by: Insulin Human Lispro (Insulin Lispro 100 Unit/Ml Insuln.Pen) 0 unit SC ACHS [facility]; Protocol Last Admin: 09/17/20 12:08 Dose: 6 units Documented by: Sodium Chloride (0.9% Saline Lock 10 Ml Syringe) 10 - 40 ml IV UD PRN PRN Reason: SALINE FLUSH Last Admin: 09/15/20 08:36 Dose: 30 ml Documented by: Sodium Chloride (0.9% Saline Lock 10 Ml Syringe) 10 - 40 ml IV UD PRN PRN Reason: Open End PICC Flush Sodium Chloride (0.9 % Nacl (Sterile) Posiflush 10 Ml) 10 - 40 ml IV UD PRN PRN Reason: Port access or dressing change Medical Necessity - Tobacco Use Smoking Status: Never smoker Route of nutrition/ use of supplements: [] Nutritional Intake: [] IV Site: [] Gandhi Catheter: [] - Assessment/Plan Antibiotics: [] Assessment/Plan: [] Active and Suspected Problems COVID-19 (Acute) Acute respiratory failure with hypoxia (Acute) Covid with acute resp failure with hypoxia and SANKET - Cont dex, completed remdesivir. Received plasma. Ok for d/c home with o2 as needed per primary team. No need for further steroids at discharge. Isolate for 14 days total from start of symptoms. Will follow
--- NOTE | 2020-09-17 15:38 | PN_ITS ---
Patient Problems: Active and Suspected Problems COVID-19 (Acute) Acute respiratory failure with hypoxia (Acute) Afib (Acute) Abnormal cardiac enzyme level (Acute) Subjective: Patient seen and examined. She had no complaints and felt well. She really wanted to be discharged home. Plan was to discharge patient home today. [facility] er after discharge had been placed and just prior to patient leaving, it was noted that she went into V. tach and had a 24 1 beat of V. tach. Per discussion with cardiology, discharge therefore canceled and patient amiodarone and carvedilol dose was increased. Patient is therefore being kept to monitor heart rate overnight. O/E: Vital Signs Temp Pulse Resp BP Pulse Ox 97.4 F L 57 L 18 143/112 H 94 09/17/20 12:12 09/17/20 15:00 09/17/20 12:12 09/17/20 12:12 09/17/20 12:12 General: Alert, Oriented x3, Cooperative, Lethargic HEENT: Atraumatic, PERRLA, EOMI, Normocephalic Oral: Dry Mucosa Neck: Supple, No JVD, Negative Carotid Bruits Lungs: - - Decreased breath sounds bibasilar. No wheezes or crackles. On 2 L of oxygen by nasal cannula. Cardiovascular: afib, bradycardic Abdomen: Bowel Sounds Present, Soft, Non Tender, Non-Distended, No Hepato- splenomegaly Extremities: No clubbing, No cyanosis, No edema, Capillary Refill Less than 3 Seconds Skin: No rashes, No breakdown Musculoskeletal: No Tenderness to Palpation of Joints or Extremities Lymphatic: No Cervical, Supraclavicular, or Inguinal Adenopathy Neurological: Cranial nerves II-XII grossly intact, Neuro grossly intact, Motor Exam 5/5 strength throughout Psych/Mental Status: Normal Affect, Appropriate, Alert and oriented to time, place, person, mood and affect Vitals/I&O's: Vital Signs Temp Pulse Resp BP Pulse Ox 97.4 F L 57 L 18 143/112 H 94 09/17/20 12:12 09/17/20 15:00 09/17/20 12:12 09/17/20 12:12 09/17/20 12:12 Oxygen Flow Rate (L/min) [At 2 REST on Room Air] Oxygen Flow Rate (L/min) 4 Oxygen Delivery Method Nasal Cannula Weight: 226 lb 10.163 oz Body Mass Index (BMI) 41.8 Intake and Output for Last 24 Hours 09/15/20 09/16/20 09/17/20 23:59 23:59 23:59 Intake Total 500 / 500 600 / 600 360 / 360 Output Total 400 / 500 600 / 600 525 / 525 Balance 100 / 0 0 / 0 -165 / -165 Laboratory Results 09/16/20 16:36: POC Glucose 380 H 09/16/20 20:21: POC Glucose 465 H* 09/17/20 02:17: POC Glucose 256 H 09/17/20 06:38: POC Glucose 250 H 09/17/20 07:18: WBC 18.6 H, RBC 4.57, Hgb 14.2, Hct 42.6, MCV 93.2, MCH 31.1, MCHC 33.3 D, RDW Std Deviation 50.0 H, RDW Coeff of Raul 14.6, Plt Count 352, MPV 11.8, Immature Gran % (Auto) 2.500 H, Neut % (Auto) 84.2 H, Lymph % (Auto) 9.2 L, [place] % (Auto) 3.9, Eos % (Auto) 0.0, Baso % (Auto) 0.2, Absolute Neuts (auto) 15.7 H, Absolute Lymphs (auto) 1.71, Nucleated RBC % 0 09/17/20 07:18: Sodium 139, Potassium 4.8, Chloride 108 H, Carbon Dioxide 26.0, Anion Gap 5, BUN 64 H, Creatinine 1.34 H, Estim Creat Clear Calc 24.28, Est GFR (MDRD) Af Amer 48 L, Est GFR (MDRD) Non-Af 40 L, BUN/Creatinine Ratio 47.8 H, Glucose 251 H, Calcium 9.7 09/17/20 07:18: Magnesium 2.7 H 09/17/20 12:06: POC Glucose 252 H Current Medications Albuterol Sulfate (Albuterol Ih 8.5 Gm (Proair) Inhaler (200 Puffs)) 2 puff INHALATION Q4H PRN PRN PRN Reason: Shortness of breath, wheezing Amiodarone HCl (Amiodarone 200 Mg Tablet) 200 mg PO TID [facility] Aspirin (Aspirin 81 Mg Tab.Chew) 81 mg PO DAILY@1000 [facility] Last Admin: 09/17/20 09:25 Dose: 81 mg Documented by: Carvedilol (Carvedilol 6.25 Mg Tablet) 6.25 mg PO BID [facility] Dexamethasone (Dexamethasone 4 Mg Tablet) 6 mg PO DAILY@0800 [facility] Last Admin: 09/17/20 09:25 Dose: 6 mg Documented by: Enoxaparin Sodium (Enoxaparin 100 Mg/Ml Syringe) 100 mg SC Q12@0600,1800 [facility] Last Admin: 09/17/20 06:40 Dose: 100 mg Documented by: Heparin Sodium (Beef Lung) (Heparin Pf Lock 10 Units/Ml 50 Units/5 Ml Syringe) 50 units IV UD PRN PRN Reason: PICC Line Heparin Flush Sodium Chloride () 250 mls @ 15 mls/hr IV .[id number] PRN PRN Reason: Saline Flush Sodium Chloride () 250 mls @ 15 mls/hr IV .[id number] PRN PRN Reason: Additional IVPB Infusion Insulin Glargine (Insulin Glargine 100 Units/Ml Pen) 10 units SC DAILY [facility] Last Admin: 09/17/20 09:27 Dose: 10 u Documented by: Insulin Human Lispro (Insulin Lispro 100 Unit/Ml Insuln.Pen) 0 unit SC [facility]; Protocol Last Admin: 09/17/20 12:08 Dose: 6 units Documented by: Sodium Chloride (0.9% Saline Lock 10 Ml Syringe) 10 - 40 ml IV UD PRN PRN Reason: SALINE FLUSH Last Admin: 09/15/20 08:36 Dose: 30 ml Documented by: Sodium Chloride (0.9% Saline Lock 10 Ml Syringe) 10 - 40 ml IV UD PRN PRN Reason: Open End PICC Flush Sodium Chloride (0.9 % Nacl (Sterile) Posiflush 10 Ml) 10 - 40 ml IV UD PRN PRN Reason: Port access or dressing change STROKE Vital Signs/Narrative: Vital Signs Temp Pulse Resp BP Pulse Ox 09/17/20 15:00 57 L 09/17/20 12:12 97.4 F L 64 18 143/112 H 94 Medical Necessity - Tobacco Use Smoking Status: Never smoker Assessment/Plan All Active Problems COVID-19 (Acute) Acute respiratory failure with hypoxia (Acute) Afib (Acute) Afib (Acute) Abnormal cardiac enzyme level (Acute) # Acute hypoxic respiratory failure due to COVID 19 pneumonia * On 2 L of oxygen today * Received remdesivir and convalescent plasma and is on IV Decadron. * Pulmonology and infectious diseases on board. * Titrate oxygen to maintain saturation above 90%. goal is to wean down on oxygen to the lowest level possible, pending discharge tomorrow. * # Covid 19 pneumonia * as above * #Afib: * patient developed a 24 beat run of vtach today; potassium and magnesium WNL * amiodarone increased to 200mg tid. continue carvedilol 6.25mg bid. * 2D echo showed EF of 35%, with stage 2 diastolic dysfunction * cardiology on board * to start on eliquis today. * # Acute on chronic combined heart failure * 2D echo showed EF of 35% with stage 2 diastolic dysfunction * Entresto and spironolactone were held on admission due to SANKET. Will resume these. * continue lasix * # CKD stage 3: Cr is 1.73. # Essential hypertension:on carvedilol # hyperlipidemia: on statin. # Ischemic cardiomyopathy: On aspirin and carvedilol DVT prophylaxis: on eliquis Disposition:for likely dc tomorrow Inpatient E&M: 94803 Subs Hosp L2
[2020-09-17] MEDS: 0.9% Saline Lock 10 ML Syringe IV (22:06)
[2020-09-17] MEDS: APIXABAN 2.5 MG TABLET PO (22:11)
[2020-09-17] MEDS: Carvedilol 6.25 MG Tablet PO (22:11)
[2020-09-17 22:15] LABS: Bedside Glucose 236 mg/dL (70-110)
[2020-09-17 22:15] LABS: Bedside Glucose 284 mg/dL (70-110)
[2020-09-18 02:34] VITALS: BP 139/83; PULSE 66; RESP 19; TEMP 37; O2SAT 94
[2020-09-18 02:57] VITALS: PULSE 59
[2020-09-18 04:50] VITALS: PULSE 55
[2020-09-18] MEDS: Amiodarone 200 MG Tablet PO (06:36)
[2020-09-18] MEDS: Insulin Lispro 100 UNIT/ML INSULN.PEN SC ×2 (06:37→12:31)
[2020-09-18 07:05] LABS: Bedside Glucose 221 mg/dL (70-110)
[2020-09-18 08:58] VITALS: BP 151/81; PULSE 77; RESP 20; TEMP 36.3; O2SAT 93
[2020-09-18 08:59] LABS: Absolute Lymphocyte Count 1.51 X10^3/uL (0.83-4.51); Absolute Neutrophil Count 13.6 X10^3/uL (2.0-7.7); Basophil# 0.05 X10^3/uL; Basophil% 0.3 % (0-1); Hematocrit 43.8 % (37-47); Hemoglobin 14.3 g/dL (12.0-15.0); Lymphocyte # 1.51 X10^3/ul (4.0); Lymphocyte % 9.4 % (19-41); Mean Corp Hgb Conc 32.6 g/dL (32-36); Mean Corpuscular Hgb 31.2 pg (27.0-32.0); Mean Corpuscular Volume 95.4 fL (81-99); Mean Platelet Vol. 11.5 fl (6.2-12.0); Monocyte% 3.7 % (0-10); NRBC Flagged by Analyzer 0 % (0-5); Neutrophil # 13.63 X10^3/uL (2.7-7.7); Neutrophil % 84.4 % (47-70); Platelet Count 285 K/mm3 (150-450); RBC Distribution Width CV 14.8 % (11.6-14.6); Red Blood Count 4.59 M/mm3 (4.2-5.4); White Blood Count 16.1 K/mm3 (4.4-11.0)
[2020-09-18 09:00] VITALS: PULSE 64
[2020-09-18] MEDS: Carvedilol 6.25 MG Tablet PO (09:03)
[2020-09-18] MEDS: dexAMETHasone 4 MG Tablet 6 MG PO (09:03)
[2020-09-18] MEDS: Aspirin 81 MG TAB.CHEW PO (09:03)
[2020-09-18] MEDS: APIXABAN 2.5 MG TABLET PO (09:04)
[2020-09-18 09:15] LABS: Anion Gap 7 (5-15); BUN 56 mg/dL (7-18); BUN/Creat Ratio 53.3 RATIO (10-20); Chloride 108 mmol/L (98-107); Creatinine, Serum 1.05 mg/dL (0.55-1.02); EST Glomerular Filtration Rate 53 mL/min (>60); Est Glom Filt Rate - Afr Amer 64 mL/min (>60); Estimated Creatinine Clearance 30.98 ml/min; Glucose 209 mg/dL (74-106); Magnesium 2.8 mg/dL (1.6-2.6); Potassium 4.5 mmol/L (3.5-5.1); Sodium Level 135 mmol/L (136-145)
--- NOTE | 2020-09-18 09:16 | PN.CARD_ITS ---
Subjectve: The patient continues to be followed remotely to minimize medical staff/personnel exposure and PPE use. According to Dr. Austin she has no new acute complaints today and requests discharge home for further outpatient follow-up. Objective: Vital Signs Temp Pulse Resp BP Pulse Ox 97.3 F L 77 20 H 151/81 H 93 09/18/20 08:58 09/18/20 08:58 09/18/20 08:58 09/18/20 08:58 09/18/20 08:58 Oxygen Flow Rate (L/min) [At 2 REST on Room Air] Oxygen Flow Rate (L/min) 3 Oxygen Delivery Method Nasal Cannula Weight: 226 lb 10.163 oz Body Mass Index (BMI) 41.8 Intake and Output for Last 24 Hours 09/16/20 09/17/20 09/18/20 23:59 23:59 23:59 Intake Total 600 / 600 480 / 880 750 / 750 Output Total 600 / 600 675 / 1025 650 / 650 Balance 0 / 0 -195 / -145 100 / 100 Examination: Per the [facility] staff 09/17/20 07:18: Magnesium 2.7 H 09/18/20 08:40: WBC 16.1 H, RBC 4.59, Hgb 14.3, Hct 43.8, MCV 95.4, MCH 31.2, MCHC 32.6, Plt Count 285, MPV 11.5, Immature Gran % (Auto) 2.200 H, Neut % (Auto) 84.4 H, Lymph % (Auto) 9.4 L, Lamar % (Auto) 3.7, Eos % (Auto) 0.0, Baso % (Auto) 0.3, Absolute Neuts (auto) 13.6 H, Nucleated RBC % 0 09/18/20 08:40: Sodium 135 L, Potassium 4.5, Chloride 108 H, Carbon Dioxide 20.0 L, Anion Gap 7, BUN 56 H, Creatinine 1.05 H, Est GFR (MDRD) Af Amer 64, Est GFR (MDRD) Non-Af 53 L, BUN/Creatinine Ratio 53.3 H, Glucose 209 H, Calcium 9.0, Magnesium 2.8 H Rhythm: Atrial fibrillation; previous episode of nonsustained wide-complex tachycardia-irregular with concerns of aberrancy versus nonsustained VT with no obvious recurrent similar type events since adjustment of medication Medical Necessity - Tobacco Use Smoking Status: Never smoker Assessment/Plan 1. Atrial fibrillation The etiology of the atrial fibrillation may be multifactorial. This could be related to a combination of her cardiovascular disease, her ongoing pneumonitis, superimposed upon her age, etc. At the present time she will need to continue rate control therapy with adjustment as needed. She has been altered to oral amiodarone therapy with the hopes of maintaining rate and potentially regaining sinus rhythm. Her dose will be adjusted upon her cardiac dysrhythmias. He has been transitioned to oral anticoagulant therapy. 2. Abnormal cardiac enzymes She does have abnormal troponin I levels. This may be a type II event secondary to supply demand mismatch from her ongoing noncardiovascular issues superimposed on her cardiovascular disease. At the moment she will continue medical management. There are no immediate plans for further invasive evaluation or care at this time. 3. CAD status post status post CABG The patient has a history of CAD with revascularization therapy with both PCI and CABG. The details are unknown. At the present time the patient will continue to be monitored. She will continue medical management as best as possible. 4. Ischemic mediated cardiomyopathy The patient has been reported as having an underlying ischemic mediated cardiomyopathy with diminished LV systolic function. The patient will continue medical management as tolerated. 5. CHF: Acute on chronic systolic There were concerns patient may be having acute on chronic systolic CHF. We will continue treatment as tolerated which includes agents such as nitrates, beta-blockers, diuretics, and afterload reducing agents. 6. Renal insufficiency Her creatinine level is elevated. Again this will need to be monitored. Her medications will need to be adjusted as needed. 7. Obesity The patient is unfortunately obese. This does have to be taken into consideration with her overall evaluation and care. 8. COVID-19 positive She does have findings compatible with and a laboratory study compatible with COVID-19 positivity. She is undergoing evaluation care by pulmonology/critical care medicine and infectious disease evaluation. Comment: The patient's case was discussed and reviewed with Dr. Austin. This note was generated using a voice recognition system and there may be incorrect words, spelling or punctuation that were not noted when reviewing the office note prior to saving.
--- NOTE | 2020-09-18 11:59 | DCINST_ITS ---
- Discharge Diagnoses Current Active Problems: Current Active and Chronic Problems Coronary artery disease (Chronic) Morbid obesity due to excess calories (Chronic) Renal insufficiency (Chronic) COVID-19 (Acute) Systolic CHF, acute on chronic (Chronic) Acute respiratory failure with hypoxia (Acute) Afib (Acute) S/P PTCA (percutaneous transluminal coronary angioplasty) (Chronic) S/P CABG (coronary artery bypass graft) (Chronic) Cardiomyopathy (Chronic) Abnormal cardiac enzyme level (Acute) You will use the following diet at home:: Cardiac Your food should be the consistency of: Regular Your liquids should be the consistency of: Regular/Thin Discharge Activity: Return to Normal Activity Weight Bearing Status: Weight bearing as tolerated Call your doctor if you observe: Fever of 101 or Higher, Shortness of breath, Dizziness, Fainting spells, Swelling in the ankles, Chest pain, Increased palpitations (irregular heartbeat) Instructions: Using Oxygen Safely, Using Oxygen at Home, Inside the ICU (Intensive Care Unit), ED AFIB Allergies/Adverse Reactions: Allergies No Known Allergies Allergy (Verified 09/10/20 17:52) Medications to take at Discharge Bumetanide 1 mg PO DAILY 09/10/20 Sacubitril/Valsartan 24/26 mg [Entresto 24 mg-26 mg Tablet] 1 tab PO BID 09/10/20 Apixaban [Eliquis] 2.5 mg PO BID #60 tab 09/17/20 Amiodarone HCl [Cordarone] 200 mg PO UD #90 tab 09/18/20 Carvedilol [Coreg (Beta Sharyn)] 6.25 mg PO BID #60 tab 09/18/20 The following prescriptions were given: Amiodarone HCl [Cordarone] 200 mg PO UD #90 tab Transmission Status: Pending to [facility] Carvedilol [Coreg (Beta Sharyn)] 6.25 mg PO BID #60 tab Transmission Status: Pending to [facility] Apixaban [Eliquis] 2.5 mg PO BID #60 tab Transmission Status: Received by [facility] Primary Care Physician: Bryant Yan DO [Primary Care Provider] - Please follow up with your Primary Care Physician in: 1-2 weeks Test Results: Test results from this visit will be discussed in further detail at your follow- up appointment, if applicable. Please Follow Up With: Blue Olivera MD When: 2-3 weeks Proposed Discharge Date: 09/18/20
[2020-09-18 12:29] VITALS: BP 132/82; PULSE 61; RESP 20; TEMP 36.2; O2SAT 93
--- NOTE | 2020-09-20 13:40 | CASEMGMT ---
BRITNEY CM DC PHONE CALL DC DATE: 09/20/2020 DC DISPOSITION: Home DC DIAGNOSIS: SARS COVID 2 Attempted call to home phone. No answer and no messaging with name identifier. Tammi HO RN ACM
== END 2020-09-18 13:53 | disposition home or self-care (01) | DRG 177 ==
LOC: ICU 09-15 10:14 → MS2 09-15 17:15
PROVIDERS: Internal Medicine; Internal Medicine Critical Care Medicine; Internal Medicine Infectious Disease; Admitting Provider Hospitalist; PCP Family Medicine; Visit Provider Student in an Organized Health Care Education/Training Program
DX: U07.1 COVID-19 (principal); J96.01 Acute respiratory failure with hypoxia; J12.89 Other viral pneumonia; I50.43 Acute on chronic combined systolic (congestive) and diastolic (congestive) heart failure; I13.0 Hypertensive heart and chronic kidney disease with heart failure and stage 1 through stage 4 chronic kidney disease, or unspecified chronic kidney disease; I47.2 Ventricular tachycardia; Z68.41 Body mass index [BMI] 40.0-44.9, adult; N17.9 Acute kidney failure, unspecified; N18.30 Chronic kidney disease, stage 3 unspecified; I25.10 Atherosclerotic heart disease of native coronary artery without angina pectoris; I48.91 Unspecified atrial fibrillation; I25.5 Ischemic cardiomyopathy; E78.5 Hyperlipidemia, unspecified; E66.01 Morbid (severe) obesity due to excess calories; R74.8 Abnormal levels of other serum enzymes; Z66 Do not resuscitate; Z95.1 Presence of aortocoronary bypass graft; Z98.61 Coronary angioplasty status; Z79.01 Long term (current) use of anticoagulants; Z79.899 Other long term (current) drug therapy; Z86.73 Personal history of transient ischemic attack (TIA), and cerebral infarction without residual deficits
CPT/HCPCS: 36415; 36569; 71045; 80048; 80053; 82550; 82962; 83036; 83615; 83735; 84100; 84484; 85025; 85027; 85379; 85384; 85610; 86900; 86901; 93005; 93306; 94002; 94003; 97110; 97116; 97162; 97165; 97530; 97535; J7040; J7050; Q9957; A4216; C8929; J1940